=== PATIENT | female | born 1955 | race Caucasian/White ===

== ENCOUNTER 2016-10-03 00:11 | Emergency (ER) | payer MEDICARE, OTHER ==
[~2016-10-03] VITALS: Ht 157.5 cm; Wt 70.0 kg
[~2016-10-03 00:11] MED LIST: AMLO5TAB4 PO; ATOR10TA23 PO; BENA10TA PO; CITA20TA6 PO; EFV600C PO; GABA300C16 PO; HYDR25TA6 PO; METO-448 PO; NCN500CCR PO; SULF-151 PO; SYN1 PO; [UNRECOGNIZED DRUG - CODE] PO
[2016-10-03 00:20] VITALS: Ht 157.5 cm; Wt 70.0 kg
--- NOTE | 2016-10-03 01:52 | ERD ---
ER Documentation Chief Complaint Date/Time DATE: 10/03/16 TIME: 01:49 Chief Complaint COUGH SINCE YESTERDAY. HPI 61-year-old female presents here in emergency department cough for 2 days. Patient has been having dry cough, does not cough up any phlegm or blood. Patient has episodes of wheezing at time. Patient does not have any chest pain or palpitations. Patient denies any dizziness. Patient denies any sick contact. Patient denies any fever or chills. ROS All systems reviewed and are negative except as per history of present illness. Medications Home Meds Active Scripts Albuterol Sulfate* (Proair HFA*) 8.5 Gm Hfa.aer.ad, 2 PUFF INH Q4H Y for WHEEZING AND SOB, #1 INHALER Prov:BRIT GRIFFITHS NP 10/03/16 Prednisone* (Prednisone*) 50 Mg Tablet, 50 MG PO DAILY, #5 TAB Prov:BRIT GRIFFITHS NP 10/03/16 Ibuprofen* (Motrin*) 600 Mg Tab, 600 MG PO Q6H Y for PAIN AND OR ELEVATED TEMP, #30 TAB Prov:BRIT GRIFFITHS NP 10/03/16 Cetirizine Hcl* (Zyrtec*) 10 Mg Capsule, 10 MG PO DAILY, #30 TAB.CHEW Prov:BRIT GRIFFITHS NP 10/03/16 Gxyyctwzlnz-C-Kpyqadsevu Hb* (Guaifenesin* DM Syrup) 120 Ml Syrup, 10 ML PO Q4H Y for COUGH, #120 ML Prov:BRIT GRIFFITHS NP 10/03/16 Azithromycin* (Zithromax*) 250 Mg Tablet, 250 MG PO .TabathaPACK DIRECTED, #6 TAB TAKE 500 MG (2 TABS) THE FIRST DAY THEN 250 MG (1 TAB) DAYS 2-5 Prov:BRIT GRIFFITHS NP 10/03/16 Reported Medications Hydrochlorothiazide (Hydrochlorothiazide) 25 Mg Tablet, 25 MG PO DAILY 11/30/11 Lamivudine* (Epivir*) 300 Mg Tablet, 300 MG PO BID 11/30/11 Benazepril Hcl* (Lotensin*) 10 Mg Tablet, 10 MG PO DAILY 11/30/11 Sulfamethoxazole/Trimethoprim (Sulfamethoxazole Tmp Ds Tab) 1 Tab Tablet, 1 TAB PO DAILY 11/30/11 Metoprolol Tartrate* (Lopressor*) 25 Mg Tab, 25 MG PO DAILY 11/30/11 Niacin* (Niaspan*) 500 Mg Tablet.sa, 500 MG PO DAILY 11/30/11 Atorvastatin (Lipitor) 10 Mg Tablet, 10 MG PO DAILY 11/30/11 Levothyroxine Sodium* (Synthroid*) 100 Mcg Tablet, 100 MCG PO DAILY 11/30/11 Amlodipine Besylate* (Norvasc*) 5 Mg Tablet, 5 MG PO DAILY 11/30/11 Efavirenz* (Sustiva*) 600 Mg Tablet, 600 MG PO DAILY 11/30/11 Citalopram Hydrobromide* (Citalopram Hydrobromide*) 20 Mg Tablet, 20 MG PO DAILY 11/30/11 Gabapentin* (Gabapentin*) 300 Mg Capsule, 300 MG PO TID 11/30/11 Allergies Allergies: Coded Allergies: No Known Allergies (Verified Allergy, Mild, 11/30/11) acetaminophen (Verified Allergy, Unknown, VOMITS, 10/03/16) hydrocodone bit (Verified Allergy, Unknown, VOMITS, 10/03/16) PMhx/Soc History of Surgery: Yes (BACK,,BRAIN DUE ANEURYSM) Anesthesia Reaction: No Hx Neurological Disorder: Yes (CVA) Hx Respiratory Disorders: No Hx Cardiac Disorders: Yes (HTN\) Hx Psychiatric Problems: Yes (DEPRESSION) Hx Miscellaneous Medical Probl: Yes (AIDS DX 2 WEEKS AGO) Hx Alcohol Use: No Hx Substance Use: No Hx Tobacco Use: No Smoking Status: Never smoker FmHx Family History: No coronary disease, No diabetes, No other Physical Exam Vitals Vital Signs Date Time Temp Pulse Resp B/P Pulse Ox O2 Delivery O2 Flow Rate FiO2 10/03/16 02:54 96.7 82 17 128/75 96 Room Air 10/03/16 00:20 96.7 80 18 112/71 96 Physical Exam GENERAL: The patient is well developed and appropriate for usual state of health, in no apparent distress. CHEST: Clear to auscultation bilaterally. There are no rales, wheezes or rhonchi. HEART: Regular rate and rhythm. No murmurs, clicks, rubs or gallops. No S3 or S4. ABDOMEN: Soft, nontender and nondistended. Good bowel sounds. No rebound or guarding. No gross peritonitis. No gross organomegaly or masses. No Allison sign or McBurney point tenderness. BACK: No midline or flank tenderness. EXTREMITIES: Equal pulses bilaterally. There is no peripheral clubbing, cyanosis or edema. No focal swelling or erythema. Full range of motion. Grossly neurovascularly intact. NEURO: Alert and oriented. Cranial nerves 2-12 intact. Motor strength in all 4 extremities with 5/5 strength. Sensation grossly intact. Normal speech and gait. SKIN: There is no apparent rash or petechia. The skin is warm and dry. HEMATOLOGIC AND LYMPHATIC: There is no evidence of excessive bruising or lymphedema. No gross cervical, axillary, or inguinal lymphadenopathy. Results 24 hrs Current Medications Medications (Trade) Dose Ordered Sig/Ruby Route PRN Reason Start Time Stop Time Status Last Admin Dose Admin Ceftriaxone Sodium (Rocephin) 1 gm ONCE ONCE IM 10/03/16 03:00 10/03/16 03:01 DC 10/03/16 02:48 PROCEDURE: XR Chest. CLINICAL INDICATION: Cough. TECHNIQUE: Single frontal view of the chest was obtained COMPARISON: None FINDINGS: Right upper lobe pneumonia at the inferior segments. Mild patchy air space disease in the right middle lobe. The left lung is clear. There is no pleural effusion or pneumothorax. IMPRESSION: Dense right upper lobe pneumonia at the mid lung. RPTAT: [facility] Physician Av Date Time Electronically viewed and signed by Physician Av on 10/03/2016 02:30 RS/ CC: BRIT GRIFFITHS NP Procedures/MDM Medical Decision Making: Patient symptoms are most likely consistent with pneumonia as seen in the x-ray. Patient management is appropriate at this time since patient O2 saturation is normal and patient doesnt show any respiratory distress. Patients chest xray doesnt show infiltrates or any other cardiopulmonary emergencies at this time. There is low suspicion for other cardiopulmonary emergencies at this time such as CHF, Pulmonary Embolism, Pneumothorax, Aortic Aneurysm or any other cardiopulmonary emergencies at this time. There is low suspicion for sepsis. Patient appears well and is hemodynamically stable. She does not have any fever. Disposition: Home. Condition: Stable Prescriptions: Azithromycin, guaifenesin DM Zyrtec albuterol prednisone Instructions: Patient is advised to take medications as prescribed. Patient is advised to rest. Patient advised to increase fluid intake, do humidifier at home and if possible, do salt water gargles. Patient is advised that if symptoms are worse, shortness of breath, uncontrolled fever, stridor, vomiting, worst signs and symptoms to return to emergency department immediately. Otherwise, patient is advised to follow up with primary doctor in 5-7 days. Departure Diagnosis: Primary Impression: Pneumonia Pneumonia type: due to unspecified organism Laterality: right Lung location : upper lobe of lung Qualified Code: J18.1 - Pneumonia of right upper lobe due to infectious organism Condition: Stable Patient Instructions: Pneumonia (Adult) Additional Instructions: : Patient is advised to take medications as prescribed. Patient is advised to rest. Patient advised to increase fluid intake, do humidifier at home and if possible, do salt water gargles. Patient is advised that if symptoms are worse, shortness of breath, uncontrolled fever, stridor, vomiting, worst signs and symptoms to return to emergency department immediately. Otherwise, patient is advised to follow up with primary doctor in 5-7 days. BRIT GRIFFITHS NP Oct 03, 2016 01:52
--- NOTE | 2016-10-03 02:31 | RADRPT ---
PROCEDURE: XR Chest. CLINICAL INDICATION: Cough. TECHNIQUE: Single frontal view of the chest was obtained COMPARISON: None FINDINGS: Right upper lobe pneumonia at the inferior segments. Mild patchy air space disease in the right mid dle lobe. The left lung is clear. There is no pleural effusion or pneumothorax. IMPRESSION: Dense right upper lobe pneumonia at the mid lung. RPTAT: [facility] Physician Av Date Time Electronically viewed and signed by Physician Av on 10/03/2016 02:30 RS/
[2016-10-03] MEDS ORDERED: PRED50TA PO (02:40)
[2016-10-03] MEDS ORDERED: AZIT250T94 PO (02:40)
[2016-10-03] MEDS ORDERED: CETI10CA PO (02:40)
[2016-10-03] MEDS ORDERED: GUAI120S26 PO (02:40)
[2016-10-03] MEDS ORDERED: ALBU8.5H3 INH (02:40)
[2016-10-03] MEDS ORDERED: IBUP-1542 PO (02:40)
[2016-10-03 02:54] VITALS: BP 128/75; PULSE 82; RESP 17; TEMP 96.7
[2016-10-03] MEDS ORDERED: CEFTRIAXONE 1 GM INJ IM ONE (03:00)
== END 2016-10-03 03:00 | disposition home or self-care (01) ==
LOC: FTE 00:11
DX: J18.1 Lobar pneumonia, unspecified organism (principal); I10 Essential (primary) hypertension
CPT/HCPCS: 71010; 96372; 99284; J0696

== ENCOUNTER 2016-10-25 18:25 | Inpatient (IN) | payer MEDICARE, OTHER ==
[~2016-10-25] VITALS: Ht 152.4 cm; Wt 75.5 kg
[~2016-10-25 18:25] MED LIST changes: +ALBU8.5H3 INH; +AZIT250T94 PO; +CETI10CA PO; +GUAI120S26 PO; +IBUP-1542 PO; +PRED50TA PO
[2016-10-25] MEDS ORDERED: SODIUM CHLORIDE 0.9% 1L BAG IV* STA (19:20)
[2016-10-25] MEDS ORDERED: CEFEPIME 2GM/50 ML (PMX) 50 ML IVPB STA (19:20)
[2016-10-25] MEDS ORDERED: VANCOMYCIN 1 GM (PMX) 250 ML IVPB ONE (19:30)
[2016-10-25] MEDS ORDERED: IBUPROFEN 600 MG TAB PO ONE (19:30)
[2016-10-25 19:40] LABS: ADD SCAN DIFF NO
[2016-10-25 19:42] LABS: BASOPHILS % 0.2 % (0.0-2.0); EOSINOPHILS % 0.2 % (0.0-7.0); HEMATOCRIT 40.1 % (37.0-47.0); HEMOGLOBIN 14.2 g/dl (12.0-16.0); LYMPHOCYTES # 2.8 10^3/ul (0.8-2.9); LYMPHOCYTES % 20.6 % (15.0-51.0); MEAN CORPUSCULAR HEMOGLOBIN 33.2 pg (29.0-33.0); MEAN CORPUSCULAR HGB CONC 35.4 g/dl (32.0-37.0); MEAN CORPUSCULAR VOLUME 93.7 fl (82.0-101.0); MEAN PLATELET VOLUME 9.2 fl (7.4-10.4); MONOCYTE # 0.8 10^3/ul (0.3-0.9); NEUTROPHIL # 9.9 10^3/ul (1.6-7.5); NEUTROPHILS % 72.4 % (39.0-77.0); PLATELET COUNT 243 10^3/UL (140-415); RED BLOOD COUNT 4.28 10^6/ul (4.20-5.40); RED CELL DISTRIBUTION WIDTH 14.6 % (11.5-14.5); WHITE BLOOD COUNT 13.6 10^3/ul (4.8-10.8)
[2016-10-25 19:54] LABS: CHLORIDE 95 mmol/L (97-110)
[2016-10-25 19:55] LABS: INR 1.44; POTASSIUM 3.8 mmol/L (3.5-5.1); PROTIME 17.6 Sec (12.2-14.2); PT RATIO 1.4; SODIUM 132 mmol/L (135-144)
[2016-10-25 19:56] LABS: PARTIAL THROMBOPLASTIN TIME 34.7 Sec (25.0-35.0)
[2016-10-25 19:57] LABS: ANION GAP 19 (8-16); BILIRUBIN,INDIRECT 0.5 mg/dl (0-1.1); BILIRUBIN,TOTAL 0.5 mg/dl (0.2-1.3); CARBON DIOXIDE 22 mmol/L (21-31); CREATININE 1.83 mg/dl (0.44-1.00)
[2016-10-25 19:58] LABS: ALANINE AMINOTRANSFERASE 49 IU/L (13-69); ALBUMIN/GLOBULIN RATIO 0.81; ALKALINE PHOSPHATASE 150 IU/L (42-121); ASPARTATE AMINO TRANSFERASE 48 IU/L (15-46); BLOOD UREA NITROGEN 19 mg/dl (7-20); CALCIUM 8.7 mg/dl (8.4-10.2); GLUCOSE 116 mg/dl (70-220); TOTAL PROTEIN 8.9 g/dl (6.1-8.1)
[2016-10-25] MEDS ORDERED: OMEP40CA6 PO (20:06)
[2016-10-25] MEDS ORDERED: OXYB5TAB7 PO (20:06)
[2016-10-25] MEDS ORDERED: RALT400T4 PO (20:06)
[2016-10-25] MEDS ORDERED: EMTR1TAB11 PO (20:07)
[2016-10-25] MEDS ORDERED: FOLI-49 PO (20:07)
[2016-10-25] MEDS ORDERED: BIOT1TAB14 PO (20:10)
[2016-10-25] MEDS ORDERED: CHOL20003 PO (20:11)
--- NOTE | 2016-10-25 20:15 | ERA ---
ER Documentation Chief Complaint Date/Time DATE: 10/25/16 TIME: 20:08 Chief Complaint fever x 2 days HPI 61-year-old woman presents with continued fever and cough. About 3 weeks ago she was diagnosed with a pneumonia and discharged with oral antibiotics, she states she used her antibiotics without any relief she has had cough since then has had worsening fevers over the last 2 days. She feels weak and dizzy. She denies vomiting or diarrhea, no blood per rectum, no chest pain or shortness of breath. ROS All systems reviewed and are negative except as per history of present illness. Medications Home Meds Active Scripts Cetirizine Hcl* (Zyrtec*) 10 Mg Capsule, 10 MG PO DAILY, #30 TAB.CHEW Prov:BRIT GRIFFITHS PNEUMATIC TOOL REPAIRER 10/03/16 Reported Medications Voriconazole* (Voriconazole*) 200 Mg Tablet, 200 MG PO DAILY, TAB 10/25/16 Cholecalciferol (Vitamin D3) (VITAMIN D-3) 2,000 Unit Capsule, 2000 UNIT PO DAILY, CAP 10/25/16 Biotin/Silicon Diox/l-Cysteine (Jenkins Matrix 5000 ER Tablet) 1 Each Tablet.er, 1 EACH PO DAILY, TAB 10/25/16 Folic Acid* (Folic Acid*) 1 Mg Tablet, 1 MG PO DAILY, TAB 10/25/16 Emtricitabine-Tenofovir* (Truvada*) 200-300 Mg Tablet, 1 TAB PO DAILY, TAB 10/25/16 Omeprazole* (Omeprazole*) 40 Mg Capsule.dr, 40 MG PO DAILY, #30 CAP 10/25/16 Oxybutynin Chloride* (Ditropan*) 5 Mg Tab, 5 MG PO TID, TAB 10/25/16 Raltegravir Potassium* (Isentress*) 400 Mg Tablet, 400 MG PO BID, TAB 10/25/16 Hydrochlorothiazide (Hydrochlorothiazide) 25 Mg Tablet, 25 MG PO DAILY 11/30/11 Sulfamethoxazole/Trimethoprim (Sulfamethoxazole Tmp Ds Tab) 1 Tab Tablet, 1 TAB PO BID 11/30/11 Citalopram Hydrobromide* (Citalopram Hydrobromide*) 20 Mg Tablet, 20 MG PO DAILY 11/30/11 Gabapentin* (Gabapentin*) 300 Mg Capsule, 300 MG PO TID 11/30/11 Discontinued Reported Medications Lamivudine* (Epivir*) 300 Mg Tablet, 300 MG PO BID 11/30/11 Benazepril Hcl* (Lotensin*) 10 Mg Tablet, 10 MG PO DAILY 11/30/11 Metoprolol Tartrate* (Lopressor*) 25 Mg Tab, 25 MG PO DAILY 11/30/11 Niacin* (Niaspan*) 500 Mg Tablet.sa, 500 MG PO DAILY 11/30/11 Atorvastatin (Lipitor) 10 Mg Tablet, 10 MG PO DAILY 11/30/11 Levothyroxine Sodium* (Synthroid*) 100 Mcg Tablet, 100 MCG PO DAILY 11/30/11 Amlodipine Besylate* (Norvasc*) 5 Mg Tablet, 5 MG PO DAILY 11/30/11 Efavirenz* (Sustiva*) 600 Mg Tablet, 600 MG PO DAILY 11/30/11 Discontinued Scripts Albuterol Sulfate* (Proair HFA*) 8.5 Gm Hfa.aer.ad, 2 PUFF INH Q4H Y for WHEEZING AND SOB, #1 INHALER Prov:BRIT GRIFFITHS NP 10/03/16 Prednisone* (Prednisone*) 50 Mg Tablet, 50 MG PO DAILY, #5 TAB Prov:BRIT GRIFFITHS NP 10/03/16 Ibuprofen* (Motrin*) 600 Mg Tab, 600 MG PO Q6H Y for PAIN AND OR ELEVATED TEMP, #30 TAB Prov:BRIT GRIFFITHS NP 10/03/16 Gvrdotnknsw-D-Edbtacrqye Hb* (Guaifenesin* DM Syrup) 120 Ml Syrup, 10 ML PO Q4H Y for COUGH, #120 ML Prov:BRIT GRIFFITHS NP 10/03/16 Azithromycin* (Zithromax*) 250 Mg Tablet, 250 MG PO .TabathaPACHARLY DIRECTED, #6 TAB TAKE 500 MG (2 TABS) THE FIRST DAY THEN 250 MG (1 TAB) DAYS 2-5 Prov:BRIT GRIFFITHS NP 10/03/16 Allergies Allergies: Coded Allergies: acetaminophen (Verified Allergy, Unknown, VOMITS, 10/25/16) hydrocodone bit (Verified Allergy, Unknown, VOMITS, 10/25/16) PMhx/Soc Hypothyroidism, hypertension, history of stroke, recent right upper lobe pneumonia treated as an outpatient with oral antibiotics, gastritis History of Surgery: Yes (BACK,,BRAIN DUE ANEURYSM) Anesthesia Reaction: No Hx Neurological Disorder: Yes (CVA) Hx Respiratory Disorders: No Hx Cardiac Disorders: Yes (HTN\) Hx Psychiatric Problems: Yes (DEPRESSION) Hx Miscellaneous Medical Probl: Yes (AIDS ) Hx Alcohol Use: No Hx Substance Use: No Hx Tobacco Use: No Smoking Status: Never smoker FmHx Family History: No diabetes Physical Exam Vitals Vital Signs Date Time Temp Pulse Resp B/P Pulse Ox O2 Delivery O2 Flow Rate FiO2 10/25/16 21:15 100.5 90 16 85/54 99 Room Air 10/25/16 20:24 96 16 89/60 95 Room Air 10/25/16 18:58 100.5 118 20 80/55 94 Physical Exam GENERAL: Well-developed, well-nourished, febrile, dyspneic, hypotensive HEENT: Moist mucous membranes, pink conjunctiva, no cervical spine tenderness or step-off deformities, no goiter, no jaundice or icterus, extraocular movements intact without pain. No submandibular induration, and no pharyngeal erythema NEURO: Alert and oriented 3, cranial nerves II through XII intact bilaterally, pupils equal round reactive to light, no focal deficits or facial asymmetry, sensation intact distally Strength 5/5 in upper and lower extremities bilaterally CARDIAC: Tachycardic and regular, no murmurs rubs or gallops LUNGS: Poor breath sounds bilaterally, no obvious crackles or wheezing ABDOMEN: Soft nontender, no guarding, no rigidity, no rebound, no psoas sign no obturator sign. Normoactive bowel sounds SKIN: Hot to touch and dry, no abrasions, contusions, or hematomas, no lacerations, no ecchymosis, no target lesions, and without ulcers EXTREMITIES: No clubbing cyanosis or edema, calves are bilaterally symmetrical, no Homans sign, no popliteal cord sign. Distal pulses equal and bilateral PSYCH: Normal affect without agitation or irritability Result Diagram: 10/25/16193410/25/161934 Results 24 hrs Laboratory Tests Test 10/25/16 19:35 White Blood Count 13.610^3/ul Red Blood Count 4.2810^6/ul Hemoglobin 14.2g/dl Hematocrit 40.1% Mean Corpuscular Volume 93.7fl Mean Corpuscular Hemoglobin 33.2pg Mean Corpuscular Hemoglobin Concent 35.4g/dl Red Cell Distribution Width 14.6% Platelet Count 54992^3/UL Mean Platelet Volume 9.2fl Neutrophils % 72.4% Lymphocytes % 20.6% Monocytes % 6.0% Eosinophils % 0.2% Basophils % 0.2% Nucleated Red Blood Cells % 0.0/100WBC Neutrophils # 9.910^3/ul Lymphocytes # 2.810^3/ul Monocytes # 0.810^3/ul Eosinophils # 0.010^3/ul Basophils # 0.010^3/ul Nucleated Red Blood Cells # 0.010^3/ul Prothrombin Time 17.6Sec Prothrombin Time Ratio 1.4 INR International Normalized Ratio 1.44 Activated Partial Thromboplast Time 34.7Sec Sodium Level 132mmol/L Potassium Level 3.8mmol/L Chloride Level 95mmol/L Carbon Dioxide Level 22mmol/L Anion Gap 19 Blood Urea Nitrogen 19mg/dl Creatinine 1.83mg/dl Glucose Level 116mg/dl Lactic Acid Level 1.8mmol/L Calcium Level 8.7mg/dl Total Bilirubin 0.5mg/dl Direct Bilirubin 0.00mg/dl Indirect Bilirubin 0.5mg/dl Aspartate Amino Transf (AST/SGOT) 48IU/L Alanine Aminotransferase (ALT/SGPT) 49IU/L Alkaline Phosphatase 150IU/L Troponin I < 0.012ng/ml Total Protein 8.9g/dl Albumin 4.0g/dl Globulin 4.90g/dl Albumin/Globulin Ratio 0.81 Lipase 21U/L Current Medications Medications (Trade) Dose Ordered Sig/Ruby Route PRN Reason Start Time Stop Time Status Last Admin Dose Admin Sodium Chloride 3000 ml 3,000 ml BOLUS OVER 2 HOURS STAT IV* 10/25/16 19:20 10/25/16 19:22 DC 10/25/16 19:28 Cefepime HCl 50 ml @ 100 mls/hr ONCE STAT IVPB 10/25/16 19:20 10/25/16 19:49 DC 10/25/16 19:30 Vancomycin HCl (Vancocin) 250 ml @ 125 mls/hr ONCE ONCE IVPB 10/25/16 19:30 10/25/16 21:29 DC 10/25/16 20:08 Ibuprofen 600 mg 600 mg ONCE ONCE PO 10/25/16 19:30 10/25/16 19:31 DC 10/25/16 19:43 Sodium Chloride 1,000 ml @ 1,000 mls/hr Q1H ONCE IV 10/25/16 20:30 10/25/16 21:29 DC 10/25/16 20:26 Sodium Chloride 1,000 ml @ 1,000 mls/hr Q1H ONCE IV 10/25/16 20:30 10/25/16 21:29 DC 10/25/16 20:27 Norepinephrine (Levophed) 250 ml @ 1.875 mls/ hr TITRATE IV 10/25/16 22:00 Procedures/MDM IV line was established patient was placed on registered nurse cardiac rhythm strip revealed a sinus tachycardia at 120 bpm with upright P and T waves. Patient was febrile blood and urine cultures have been ordered results are pending I will follow-up. Patient was initially hypotensive. Patient was also initially hypoxic at 90%. She states she is compliant with all of her medications. EKG performed, read by me revealed a sinus tachycardia at 117 bpm, normal axis with a right ventricular conduction delay and a QRS duration 100 ms, no concerning ST elevations or depressions in the. One view chest x-ray performed, read by me there is a right upper lobe infiltrate, no pneumothorax, no end of the diaphragm. I treated the patient here with about 5 L normal saline intravenously for initial hypotension and sepsis, she also received cefepime 1 g IV and vancomycin 1 g IV. For fever patient received ibuprofen 600 mg p.o. Patient's infectious symptoms have not stabilized and the patient is at risk of rapid decompensation. The patient will be admitted for careful hydration, antibiotic therapy, and infectious source control. Severe Sepsis Assessment: Infectious Source: Pneumonia End organ damage indicated by: Hypotension( SBP < 90 or >40 mmHG drop or MAP < 65) Acute Resp Failure (sat < 92% w/o oxygen) Severe Sepsis Managment: Blood Cultures X 2 before broad spectrum antibiotics initiated within 3 hours of recognition. 30 ml/kg NS bolus Completed Initial Lactate: 1.8 Repeat Lactate not indicated as initial < 2.0 I ordered norepinephrine drip titrated to keep systolic blood pressure over 90 mmHg. Critical Care: Time: 50 minutes, this was time separate from other procedures Treatments/Evaluations: Emergent fluid management, while maintaining close respiratory support. Immediate broad spectrum antibiotic therapy. Simultaneous assessment for possible sources in order to direct therapy. Consideration for invasive and chemical support to prevent respiratory or cardiac collapse. Septic Shock Assessment (1 hour post 30 ml/kg fluid bolus): Hypotension (SBP < 90 or 40 mmHg drop, MAP < 65): Yes Lactic acid > 4.0 No Perfusion Reassessment for Septic Shock: Temp afebrile, pulse 100 bpm, respiratory rate 20 breaths per minute, blood pressure 100/80 mmHg. Heart Exam: Tachycardic Lung Exam: No Crackles Capillary Refill: Less than 2 seconds Peripheral Pulses: Radially present Skin: Hot and dry to touch Hypotensive Treatment (not required for isolated lactic acid elevation): Comfort Care: No Central LIne: Placed in the right femoral vein Vasopressor started: Indicated for continued hypotension despite adequate IV fluid resuscitation. Central Line Placement by me: Patient consented, sterilely draped, full prep, gown, glove, mask, time out performed. Anesthesia: 1% lidocaine locally Location: Right femoral vein Device: Multiple lumen Technique: Seldinger technique. Secured with suture. Results: Venous return from all ports with easy saline flush. No complications. The entire Guide wire retrieved and disposed of. I considered further perfusion assessment with CVP measurement, SCVO2, bedside ultrasound volume assessment, passive leg raise, trial of further fluid bolus. And preceded with IV hydration, central line placement, and IV antibiotics CBC revealed a leukocytosis at 14, electrolytes revealed dehydration with a BUN/ creatinine 19/1.8, liver function tests are normal, troponin was negative. Urine analysis is pending I will follow-up. Accepting Care Team: Current data and ongoing care discussed. Time: Time of admission Primary Provider: Hospital Consulting: Infectious disease Outstanding Data: none Departure Diagnosis: Primary Impression: Pneumonia Qualified Code: J18.1 - Pneumonia of right upper lobe due to infectious organism Additional Impression: Septic shock Condition: Serious MARIA ELENA LAWLER MD Oct 25, 2016 20:15
[2016-10-25] MEDS ORDERED: VORI200T9 PO (20:19)
[2016-10-25 20:20] LABS: TROPONIN-I < 0.012 ng/ml (0.00-0.12)
[2016-10-25] MEDS ORDERED: SOD CHLORIDE 0.9% 1,000 ML IV ONE ×2 (20:30)
--- NOTE | 2016-10-25 20:37 | RADRPT ---
PROCEDURE: XR Chest. CLINICAL INDICATION: Sepsis. TECHNIQUE: Single frontal view of the chest. COMPARISON: Plain film chest dated 10/03/2016. FINDINGS: Cardiomegaly. Right mid lung air space disease again seen, compatible with right upper lobe pneumoni a. This is without significant address change clerk interval, given differences in technique. No signs of pleural fluid or pneumothorax are seen. The osseous structures and soft tissues are unre markable. IMPRESSION: Persist and right upper lobe pneumonia, and consider CT correlation given presence for greater than 20 days. RPTAT: [facility] Physician Av Date Time Electronically viewed and signed by Physician Av on 10/25/2016 20:36 RS/
[2016-10-25] MEDS ORDERED: NORepinephrine 8MG/250 ML (PMX 250 ML IV SCH ×3 (22:00→23:30)
[2016-10-25 22:48] LABS: ADD UMIC NO; URINE BILIRUBIN (Dip) NEGATIVE (NEGATIVE); URINE BLOOD (Dip) NEGATIVE (NEGATIVE); URINE COLOR LT. YELLOW (YELLOW); URINE GLUCOSE (Dip) NEGATIVE (NEGATIVE); URINE KETONES (Dip) NEGATIVE (NEGATIVE); URINE LEUKOCYTE ESTERASE (Dip) NEGATIVE (NEGATIVE); URINE NITRITE (Dip) NEGATIVE (NEGATIVE); URINE TOTAL PROTEIN (Dip) NEGATIVE (NEGATIVE); URINE UROBILINOGEN (Dip) 0.2 E.U./dL (0.1-1.0)
[2016-10-25] MEDS ORDERED: LORAZEPAM 2 MG INJ IV PRN (23:30)
[2016-10-25] MEDS ORDERED: MAGNESIUM HYDROXIDE 30ML CUP PO PRN (23:30)
[2016-10-25] MEDS ORDERED: ONDANSETRON 4 MG INJ IV PRN (23:30)
[2016-10-25] MEDS ORDERED: ALBUTEROL/IPRATROPIUM (NEB) 3 ML AMP NEB PRN (23:30)
[2016-10-25] MEDS: DEXTROSE 5%-0.9% NACL 1,000 ML IV SCH (23:40)
[2016-10-25] MEDS: AZITHROMYCIN 500MG/NS (PMX) 250 ML IV SCH (23:50)
--- NOTE | 2016-10-26 05:44 | HP ---
Date/Time of Note Date/Time of Note DATE: 10/26/16 TIME: 05:34 Assessment/Plan VTE Prophylaxis VTE Prophylaxis Intervention: SCD's Assessment/Plan Assessment/Plan 1. Sepsis Shock 2/2 RUL pneumonia - Cont pressor support, IVF and abx - f/u culture results - Will order CT chest for better evaluation of Pneumonia - ID consult 2. Hx of HIV - check viral load and CD4 - ID to manage meds 3.Hx of Subarachnoid hemorrhage and hydrocephalus - non-acute issue 4. Hypothyroidism - chech TSH - cont med 5. hx of Hypertension - hold meds given septic shock. Resume as needed 6. History of stroke - Cont aspirin 7. Hx of Gastritis - PPI HPI/ROS Admit Date/Time Admit Date/Time Hx of Present Illness Patient is a 61 yo female with hx of HIV, Subarachnoid hemorrhage, hydrocephalus , Hypothyroidism, hypertension, history of stroke, gastritis who presented to ER c/o cough, fever and SOB. She was seen here in ER about 3 weeks ago and was dx'd with right upper lobe pneumonia, which was treated as an outpatient with oral antibiotics. She said she completed her abx, but symptoms persisted. She said she was dx'd with HIV 4 years ago and has been compliant with her meds. In ER, CXR showed RUL dense pneumonia. She had a temp of 100.5, tachycardic, WBC 13,000 and hypotensive despite several litres of IVF. Currently she is on pressor and awaiting ICU admission. . PMH/Family/Social Past Medical History Subarachnoid hemorrhage, hydrocephalus, Hypothyroidism, hypertension, history of stroke, gastritis, HIV . Social History Alcohol Use: none Smoking Status: Never smoker Drug Use: none Exam/Review of Systems Vital Signs Vitals Vital Signs Date Time Temp Pulse Resp B/P Pulse Ox O2 Delivery O2 Flow Rate FiO2 10/26/16 05:00 93 16 110/93 100 Nasal Cannula 2.0 10/26/16 02:09 98.6 Intake and Output 10/25/16 10/25/16 10/26/16 15:00 23:00 07:00 Intake Total 5300 ml Output Total 800 ml Balance 5300 ml -800 ml Exam Constitutional: other (appears slightly anxious and lethargic) Head: atraumatic, normocephalic Eyes: EOMI, PERRL Respiratory: diminished breath sounds Cardiovascular: nl pulses, regular rate and rhythm Gastrointestinal: non-tender, soft Extremities: normal pulses Labs Result Diagram: 10/25/16193410/25/161934 Medications Medications Current Medications Norepinephrine (Levophed) 250 ml @ 1.875 mls/ hr TITRATE IV Last administered on 10/25/16 22:05; Admin Dose 9.375 MLS/HR; Start 10/25/16 at 22:00 Ondansetron HCl (Zofran Inj) 4 mg Q6H PRN IV NAUSEA AND/OR VOMITING; Start at 23:30 Lorazepam (Ativan) 1 mg Q2H PRN IV ANXIETY; Start 10/25/16 at 23:30 Magnesium Hydroxide (Milk Of Mag) 30 ml DAILY PRN PO CONSTIPATION; Start at 23:30 Famotidine (Pepcid) 20 mg DAILY PO ; Start 10/26/16 at 09:00 Enoxaparin Sodium 40 mg 40 mg DAILY SC ; Start 10/26/16 at 09:00 Ceftriaxone Sodium 50 ml @ 100 mls/hr Q24H IVPB ; Start 10/26/16 at 06:00 Azithromycin 250 ml @ 250 mls/hr Q24H IV Last administered on 10/25/16 23:50 ; Admin Dose 250 MLS/HR; Start 10/25/16 at 23:30 Dextrose/Sodium Chloride (D5-NS) 1,000 ml @ 120 mls/hr Q8H20M IV Last administered on 10/25/16 23:40; Admin Dose 120 MLS/HR; Start 10/25/16 at 23:30 GREG RAMOS MD Oct 26, 2016 05:44
[2016-10-26] MEDS ORDERED: CEFTRIAXONE 1 GM/50 ML (PMX) 50 ML IVPB SCH (06:00)
[2016-10-26 06:35] LABS: ADD SCAN DIFF NO
[2016-10-26 06:40] LABS: ABNORMAL IP MESSAGE 1; BASOPHILS % 0.1 % (0.0-2.0); EOSINOPHILS % 0.1 % (0.0-7.0); HEMATOCRIT 36.1 % (37.0-47.0); HEMOGLOBIN 12.3 g/dl (12.0-16.0); LYMPHOCYTES # 0.9 10^3/ul (0.8-2.9); LYMPHOCYTES % 5.8 % (15.0-51.0); MEAN CORPUSCULAR HEMOGLOBIN 32.6 pg (29.0-33.0); MEAN CORPUSCULAR HGB CONC 34.1 g/dl (32.0-37.0); MEAN CORPUSCULAR VOLUME 95.8 fl (82.0-101.0); MEAN PLATELET VOLUME 9.6 fl (7.4-10.4); MONOCYTE # 0.8 10^3/ul (0.3-0.9); MONOCYTES % 4.8 % (0.0-11.0); NEUTROPHIL # 13.8 10^3/ul (1.6-7.5); NEUTROPHILS % 87.6 % (39.0-77.0); PLATELET COUNT 223 10^3/UL (140-415); RED BLOOD COUNT 3.77 10^6/ul (4.20-5.40); RED CELL DISTRIBUTION WIDTH 14.9 % (11.5-14.5); WHITE BLOOD COUNT 15.8 10^3/ul (4.8-10.8)
[2016-10-26 06:54] LABS: ALBUMIN 2.6 g/dl (3.3-4.9)
[2016-10-26 06:57] LABS: ALBUMIN/GLOBULIN RATIO 0.68; BILIRUBIN,INDIRECT 0.2 mg/dl (0-1.1); BILIRUBIN,TOTAL 0.2 mg/dl (0.2-1.3); CREATININE 1.17 mg/dl (0.44-1.00); TOTAL PROTEIN 6.4 g/dl (6.1-8.1)
[2016-10-26 06:58] LABS: CALCIUM 6.6 mg/dl (8.4-10.2)
[2016-10-26] MEDS: DEXTROSE 5%-0.9% NACL 1,000 ML IV SCH ×2 (07:20→18:45)
[2016-10-26] MEDS: FAMOTIDINE 20 MG TAB PO SCH (09:35)
[2016-10-26] MEDS: ENOXAPARIN 40 MG/0.4 ML SYG SC SCH (09:35)
--- NOTE | 2016-10-26 10:19 | RADRPT ---
PROCEDURE: CT Chest without contrast. CLINICAL INDICATION: Abnormal chest x-ray. TECHNIQUE: Volumetrically acquired images of the thorax without intravenous contrast were reformat tanya in the axial, sagittal, and coronal planes. Radiation dose: CTDIvol (mGy) = 13.0; total DLP mGy-cm = 477. One or more of the following radiation dose techniques were used: -Automated exposure control. -Adjust of the mA and/or kV according to patient size. -Use of iterative reconstruction technique. COMPARISON: Chest x-rays, 10/25/2016 and 10/03/2016. FINDINGS: Large area of consolidation identified in the anterior upper lobe with traction bronchiectasis. The re are diffuse bilateral centrilobular nodules that are most prominent in the right upper and lower lobe superior. There are prominent linear bands of scarring and/or atelectasis identified in the r ight upper and bilateral lower lobes. Retained secretions and/or aspirate is noted in the dependent aspect of the trachea. There is a sma ll right paratracheal cyst. Normal heart size with small pericardial effusion. There are left hilar michelle calcifications. Diffuse hepatic steatosis. Asymmetric enlargement of the left lateral lobe of the liver with fissur al widening and recanalization of the periumbilical vein; dysmorphic changes suggesting underyling d iffuse liver disease. There is also trace perihepatic ascites. IMPRESSION: Diffuse exudative inflammatory airway changes, consistent with an infectious/inflammatory bronchioli tis in the background of diffuse bilateral bands of pleural parenchymal scarring and chronic consoli dation involving the anterior upper lobe. Findings may reflect sequelae of prior and/or persistent indolent granulomatous airway infection. Consider consultation with pulmonary medicine. Hepatic steatosis with morphologic changes in the liver suggesting early cirrhotic change. There is small perihepatic ascites. RPTAT: EE .Mando Brower MD, Date Time Electronically viewed and signed by .Mando Brower MD, on 10/26/2016 10:24 .C/
[2016-10-26] MEDS ORDERED: ADENOSINE 4 ML ONE (11:59)
[2016-10-26] MEDS ORDERED: ADENOSINE 6 MG INJ IV ONE (12:00)
--- NOTE | 2016-10-26 12:15 | EN ---
Date/Time of Note Date/Time of Note DATE: 10/26/16 TIME: 12:12 ER Progress Note This 61-year-old admitted patient suddenly went into a tachycardia. She is feeling palpitations but no chest pain. The nurse approached me to evaluate the patient due to the tachycardia. Heart rate on monitor shows 165. Const: Well-developed, well-nourished Head: Atraumatic, normocephalic Eyes: Normal Conjunctiva, PERRLA, EOMI, normal sclera, no nystagmus ENT: Normal External Ears, Nose and Mouth, moist mucus membranes. Neck: Full range of motion. No meningismus, no lymphadenopathy. Resp: Clear to auscultation bilaterally, no wheezing, rhonchi, rales Cardio: Tachycardia, no murmurs, S1 S2 present Skin: No petechiae or rashes, no ecchymosis , no maculopapular rash Ext: No cyanosis, or edema, FROM x 4, normal inspection, neurovascularly intact x 4 Neur: Awake and alert, STR 5/5 x 4, sensation intact x 4, no focal findings, cerebellum intact Psych: Normal Mood and Affect EKG: Rate/Rhythm: Supraventricular tachycardia heart rate 160, right axis deviation with an incomplete right bundle branch block QRS, ST, QT: NORMAL MI, QRS, QT] Impression: SVT Stopped Levophed drips due to tachycardia. Still tachycardic. Blood pressure 91/78 Patient was given adenosine 12 mg IV push This did convert the patient. Heart rate is now 110 Diagnosis: Supraventricular tachycardia Condition: Stable Disposition: Admit to ICU SRI GIMENEZ DO Oct 26, 2016 12:15
[2016-10-26] MEDS ORDERED: GLUCOSE GEL 15 GRAM TUBE PO PRN ×2 (16:00)
[2016-10-26] MEDS ORDERED: GLUCAGON 1 MG INJ IM PRN (16:00)
[2016-10-26] MEDS ORDERED: DEXTROSE 50% 50 ML SYRINGE IV PRN ×2 (16:00)
[2016-10-26] MEDS ORDERED: GLUCOSE GEL 15 GRAM TUBE BUCCAL PRN (16:00)
--- NOTE | 2016-10-26 16:24 | CONS ---
DATE OF ADMISSION: 10/25/2016 DATE OF CONSULTATION: 10/26/2016 INFECTIOUS DISEASE CONSULTATION REASON FOR CONSULTATION: Antibiotic management. HISTORY OF PRESENT ILLNESS: Lien Amin is a 61-year-old female with numerous problems who com es in with sepsis and shock secondary to right upper lobe pneumonia. Her past problems include: 1. History of human immunodeficiency virus. 2. Subarachnoid hemorrhage. 3. Hydrocephalus. 4. Hypothyroidism. 5. Hypertension. 6. History of stroke. 7. Gastritis. The patient presents to the ER complaining of cough, fever, and shortness of breath. She was here 3 weeks ago, diagnosed with right upper lobe pneumonia which was treated as an outpatient with oral a ntibiotics. Symptoms persisted. She was diagnosed with HIV 4 years ago and has been compliant with the medications. In the ER, chest x-ray showed right upper lobe dense pneumonia. Temperature was 100.5, white count of 13,000, and she was hypotensive despite fluids. She is on pressors, awaiting ICU admission. PAST MEDICAL HISTORY: Operations as outlined. FAMILY HISTORY: Noncontributory. SOCIAL HISTORY: She does not smoke, drink, or abuse drugs. ALLERGIES: NONE TO PENICILLIN, SULFA, OR FOODS. MEDICATIONS: Per chart. REVIEW OF SYSTEMS: Noncontributory. PHYSICAL EXAMINATION: GENERAL: The patient is a slightly anxious, lethargic female who is awake, responsive, in no acute distress. VITAL SIGNS: Stable. She is afebrile. SKIN: Without generalized rash. HEENT: Within normal limits. NECK: Supple. LYMPH NODES: None palpable. CHEST: Decreased breath sounds at the bases. HEART: Without murmur or gallop. ABDOMEN: Soft, nontender, without organosplenomegaly or masses. EXTREMITIES: Without cyanosis, clubbing, or edema. RECTAL AND GENITAL: Deferred. NEUROLOGIC: No focal neurological abnormalities. ANCILLARY LABORATORY DATA: White count 13.6 on 10/25/2016, H and H of 14.2 and 40.1, platelet count 243,000. BUN and creatinine 19/1.83. COURSE: The patient was begun on azithromycin and ceftriaxone, although she has been treated previo usly. The patient was tachycardic, developed a supraventricular tachycardia. She was given adenosi ne 12 mg IV push, and that converted the patient to a heart rate of 110. Her white count today is 1 5.8. Her medications include ceftriaxone and azithromycin. We have to check on her HAART medicatio ns as well to see what she is on. I am going to change her ceftriaxone to cefepime and check on her anti-HIV medications. Dictated By: KALEB LEE MD, JD/KATIE Conf#: [id number] DID#: [id number]
[2016-10-26] MEDS: POTASSIUM CHLORIDE 250 ML IVPB SCH ×2 (17:24→21:40)
[2016-10-26] MEDS: INSULIN ASPART [NOVOLOG] 3 ML PEN SC SCH ×2 (20:06→21:00)
[2016-10-26] MEDS: CEFEPIME 1GM/50 ML (PMX) 50 ML IVPB SCH (21:45)
[2016-10-26] MEDS: AZITHROMYCIN 500MG/NS (PMX) 250 ML IV SCH (22:57)
[2016-10-27] MEDS ORDERED: METHYLPREDNISOLONE 125 MG INJ IV ONE (00:30)
[2016-10-27] MEDS: DEXTROSE 5%-0.9% NACL 1,000 ML IV SCH ×3 (01:04→20:00)
[2016-10-27] MEDS: ACCUCHECK AT 2AM (Patients on SS coverage) XX SCH (02:14)
[2016-10-27 05:54] LABS: ADD SCAN DIFF NO
[2016-10-27 05:56] LABS: ABNORMAL IP MESSAGE 1; BASOPHILS % 0.3 % (0.0-2.0); LYMPHOCYTES # 0.8 10^3/ul (0.8-2.9); LYMPHOCYTES % 8.7 % (15.0-51.0); MEAN CORPUSCULAR HEMOGLOBIN 32.6 pg (29.0-33.0); MEAN CORPUSCULAR HGB CONC 35.3 g/dl (32.0-37.0); MEAN CORPUSCULAR VOLUME 92.4 fl (82.0-101.0); MEAN PLATELET VOLUME 9.1 fl (7.4-10.4); MONOCYTE # 0.3 10^3/ul (0.3-0.9); MONOCYTES % 3.5 % (0.0-11.0); NEUTROPHIL # 7.9 10^3/ul (1.6-7.5); NEUTROPHILS % 85.9 % (39.0-77.0); PLATELET COUNT 232 10^3/UL (140-415); RED BLOOD COUNT 3.68 10^6/ul (4.20-5.40); RED CELL DISTRIBUTION WIDTH 14.9 % (11.5-14.5); WHITE BLOOD COUNT 9.2 10^3/ul (4.8-10.8)
[2016-10-27 06:36] LABS: CALCIUM 7.2 mg/dl (8.4-10.2); CREATININE 0.73 mg/dl (0.44-1.00); MAGNESIUM 2.1 mg/dl (1.7-2.5); PHOSPHORUS 1.4 mg/dl (2.5-4.9); POTASSIUM 3.9 mmol/L (3.5-5.1)
[2016-10-27] MEDS: INSULIN ASPART [NOVOLOG] 3 ML PEN SC SCH ×4 (08:06→23:00)
[2016-10-27] MEDS: CEFEPIME 1GM/50 ML (PMX) 50 ML IVPB SCH ×2 (08:41→23:10)
[2016-10-27] MEDS: FAMOTIDINE 20 MG TAB PO SCH (08:41)
[2016-10-27] MEDS: ENOXAPARIN 40 MG/0.4 ML SYG SC SCH (08:42)
[2016-10-27 10:00] VITALS: TEMP 98.8
--- NOTE | 2016-10-27 17:53 | PN ---
Date/Time of Note Date/Time of Note DATE: 10/27/16 TIME: 17:46 Assessment/Plan VTE Prophylaxis VTE Prophylaxis Intervention: LMWH Assessment/Plan Chief Complaint/Hosp Course 1. Sepsis Shock 2/2 RUL pneumonia and/or C. difficile - Cont to wean off pressor support, IVF and abx - f/u culture results -CT chest shows possible indolent granulomatous airway infection, pulmonary consultation - ID consult appreciated, continue cefepime, azithromycin and Flagyl 2. Hx of HIV -ID consult appreciated -Resume home meds 3.Hx of Subarachnoid hemorrhage and hydrocephalus - non-acute issue 4. History of stroke - Cont aspirin 5. hx of Hypertension - hold meds given septic shock. Resume as needed Prophylaxis: Lovenox Problems: Subjective 24 Hr Interval Summary Constitutional: no complaints Exam/Review of Systems Vital Signs Vitals Vital Signs Date Time Temp Pulse Resp B/P Pulse Ox O2 Delivery O2 Flow Rate FiO2 10/27/16 17:18 76 17 114/79 98 Nasal Cannula 2.0 10/27/16 10:00 98.8 Intake and Output 10/26/16 10/26/16 10/27/16 15:00 23:00 07:00 Intake Total 1000 ml 826.0 ml Output Total 1500 ml 1700 ml Balance -1500 ml 1000 ml -874.0 ml Exam Constitutional: alert Respiratory: clear to auscultation Cardiovascular: regular rate and rhythm Gastrointestinal: soft, No distended Musculoskeletal: nl extremities to inspection Results Result Diagram: 10/27/16 0514 10/27/16 0514 Results 24 hrs Laboratory Tests Test 10/26/16 19:42 10/26/16 21:46 10/27/16 02:03 10/27/16 05:14 Bedside Glucose 306 H 145 135 White Blood Count 9.2 # Red Blood Count 3.68 L Hemoglobin 12.0 Hematocrit 34.0 L Mean Corpuscular Volume 92.4 Mean Corpuscular Hemoglobin 32.6 Mean Corpuscular Hemoglobin Concent 35.3 Red Cell Distribution Width 14.9 H Platelet Count 232 Mean Platelet Volume 9.1 Neutrophils % 85.9 H Lymphocytes % 8.7 L Monocytes % 3.5 Eosinophils % 0.0 Basophils % 0.3 Nucleated Red Blood Cells % 0.0 Neutrophils # 7.9 H Lymphocytes # 0.8 Monocytes # 0.3 Eosinophils # 0.0 Basophils # 0.0 Nucleated Red Blood Cells # 0.0 Sodium Level 133 L Potassium Level 3.9 Chloride Level 113 H Carbon Dioxide Level 16 L Anion Gap 8 Blood Urea Nitrogen 7 Creatinine 0.73 Glucose Level 188 Calcium Level 7.2 L Phosphorus Level 1.4 L Magnesium Level 2.1 Test 10/27/16 07:41 10/27/16 12:47 Bedside Glucose 172 168 Medications Medications Current Medications Norepinephrine (Levophed) 250 ml @ 1.875 mls/ hr TITRATE IV Last administered on 10/25/16 22:05; Admin Dose 9.375 MLS/HR; Start 10/25/16 at 22:00 Ondansetron HCl (Zofran Inj) 4 mg Q6H PRN IV NAUSEA AND/OR VOMITING; Start at 23:30 Lorazepam (Ativan) 1 mg Q2H PRN IV ANXIETY; Start 10/25/16 at 23:30 Magnesium Hydroxide (Milk Of Mag) 30 ml DAILY PRN PO CONSTIPATION; Start at 23:30 Famotidine (Pepcid) 20 mg DAILY PO Last administered on 10/27/16 08:41; Admin Dose 20 MG; Start 10/26/16 at 09:00 Enoxaparin Sodium 40 mg 40 mg DAILY SC Last administered on 10/27/16 08:42; Admin Dose 40 MG; Start 10/26/16 at 09:00 Azithromycin 250 ml @ 250 mls/hr Q24H IV Last administered on 10/26/16 22:57 ; Admin Dose 250 MLS/HR; Start 10/25/16 at 23:30 Dextrose/Sodium Chloride (D5-NS) 1,000 ml @ 120 mls/hr Q8H20M IV Last administered on 10/27/16 10:11; Admin Dose 120 MLS/HR; Start 10/25/16 at 23:30 Diagnostic Test (Pha) (Accu-Chek) 1 ea 02 XX Last administered on 10/27/16 02: 14; Admin Dose 1 EA; Start 10/27/16 at 02:00 Miscellaneous Information 1 ea NOTE XX ; Start 10/26/16 at 16:00 Glucose (Glutose) 15 gm Q15M PRN PO DECREASED GLUCOSE; Start 10/26/16 at 16:00 Glucose (Glutose) 22.5 gm Q15M PRN PO DECREASED GLUCOSE; Start 10/26/16 at 16: 00 Dextrose (D50w Syringe) 25 ml Q15M PRN IV DECREASED GLUCOSE; Start 10/26/16 at 16:00 Dextrose (D50w Syringe) 50 ml Q15M PRN IV DECREASED GLUCOSE; Start 10/26/16 at 16:00 Glucagon (Glucagen) 1 mg Q15M PRN IM DECREASED GLUCOSE; Start 10/26/16 at 16:00 Glucose 15 gm 15 gm Q15M PRN BUCCAL DECREASED GLUCOSE; Start 10/26/16 at 16:00 Cefepime HCl (Maxipime 1gm/50 ml (Pmx)) 50 ml @ 100 mls/hr Q12 IVPB Last administered on 10/27/16 08:41; Admin Dose 100 MLS/HR; Start 10/26/16 at 21:00 ANICETO LEES Oct 27, 2016 17:53
[2016-10-27] MEDS ORDERED: POTASSIUM PHOSPHATE 40 MEQ in SOD CHLORIDE 0.9% 250 ML IVPB ONE (18:00)
[2016-10-27] MEDS: EMTRICITABINE/TENOFOVIR TAB PO SCH (20:00)
--- NOTE | 2016-10-27 20:22 | CONS ---
Date/Time of Note Date/Time of Note DATE: 10/27/16 TIME: 19:54 Assessment/Plan Assessment/Plan Chief Complaint/Hosp Course ID PROGRESS NOTE ABX DAY #3 =>Cefepime, Flagyl, Azith 24H INTERVAL SUMMARY * HIV(+)/AIDS: on ARV meds: * Emtricitabine-Tenofovir* (Truvada*) 200-300 Mg Tablet, 1 TAB PO DAILY, TAB * Raltegravir Potassium* (Isentress*) 400 Mg Tablet, 400 MG PO BID, TAB * HOME ABX HIV/AIDS: Voriconazole* (Voriconazole*) 200 Mg Tablet, 200 MG PO DAILY, TAB + Sulfamethoxazole/Trimethoprim (Sulfamethoxazole Tmp Ds Tab) 1 Tab Tablet, 1 TAB PO BID * Fevers resolved, WBC normalized * CXR 10/25/16 Persist and right upper lobe pneumonia, and consider CT correlation given presence for greater than 20 days. * 10/26/16 CT CHEST: IMPRESSION: * Diffuse exudative inflammatory airway changes, consistent with an infectious/ inflammatory bronchiolitis in the background of diffuse bilateral bands of pleural parenchymal scarring and chronic consolidation involving the anterior upper lobe. Findings may reflect sequelae of prior and/or persistent indolent granulomatous airway infection. Consider consultation with pulmonary medicine. * Hepatic steatosis with morphologic changes in the liver suggesting early cirrhotic change. There is small perihepatic ascites. PHYSICAL EXAMINATION: GENERAL: 61 yo F seen in the ED today as f/u to Dr. Sumner's ID note from yesterday HEENT: Unremarkable NECK: Supple, trachea midline. CHEST: Rise symmetrical, (+)scattered rhonchi HEART: Pulse RRR ABDOMEN: Soft, non-tender EXTREMITIES: Warm, dry, no edema ID ASSESSMENT 61 yo F w/PMHx HTN, CVA->Ruptured cerebral aneurysm with: 1. Sepsis on presentation to ED 10/25 w/fevers, transient hypotension, leukocytosis and tachycardia due to #2 2. Persistent PNA 3. HIV(+)/AIDS Dx ~prior to 2011, reportedly compliant with ARV meds: * Emtricitabine-Tenofovir* (Truvada*) 200-300 Mg Tablet, 1 TAB PO DAILY, TAB * Raltegravir Potassium* (Isentress*) 400 Mg Tablet, 400 MG PO BID, TAB * HOME ABX HIV/AIDS: * Voriconazole* (Voriconazole*) 200 Mg Tablet, 200 MG PO DAILY, TAB * Sulfamethoxazole/Trimethoprim (Sulfamethoxazole Tmp Ds Tab) 1 Tab Tablet, 1 TAB PO BID 4. MARA while on Tenofovir -> Improved 5. HTN 6. Cirrhosis w/Fatty Liver, mild ascites 7. Gastritis, hx of PUD 8. Thyroid disorder 9. 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 Depression 11. Vit D deficiency 12. 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 Overall she is improving on current ABX 2. 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 . Problems: Consultation Date/Type/Reason Admit Date/Time Initial Consult Date Exam/Review of Systems Vital Signs Vitals Vital Signs Date Time Temp Pulse Resp B/P Pulse Ox O2 Delivery O2 Flow Rate FiO2 10/27/16 18:24 75 17 108/81 100 Nasal Cannula 10/27/16 17:55 2.0 10/27/16 10:00 98.8 Intake and Output 10/26/16 10/26/16 10/27/16 14:59 22:59 06:59 Intake Total 1000 ml 826.0 ml Output Total 1500 ml 1700 ml Balance -1500 ml 1000 ml -874.0 ml Results Result Diagram: 10/27/16 0514 10/27/16 0514 Results 24 hrs Laboratory Tests Test 10/26/16 21:46 10/27/16 02:03 10/27/16 05:14 10/27/16 07:41 Bedside Glucose 145 135 172 White Blood Count 9.2 # Red Blood Count 3.68 L Hemoglobin 12.0 Hematocrit 34.0 L Mean Corpuscular Volume 92.4 Mean Corpuscular Hemoglobin 32.6 Mean Corpuscular Hemoglobin Concent 35.3 Red Cell Distribution Width 14.9 H Platelet Count 232 Mean Platelet Volume 9.1 Neutrophils % 85.9 H Lymphocytes % 8.7 L Monocytes % 3.5 Eosinophils % 0.0 Basophils % 0.3 Nucleated Red Blood Cells % 0.0 Neutrophils # 7.9 H Lymphocytes # 0.8 Monocytes # 0.3 Eosinophils # 0.0 Basophils # 0.0 Nucleated Red Blood Cells # 0.0 Sodium Level 133 L Potassium Level 3.9 Chloride Level 113 H Carbon Dioxide Level 16 L Anion Gap 8 Blood Urea Nitrogen 7 Creatinine 0.73 Glucose Level 188 Calcium Level 7.2 L Phosphorus Level 1.4 L Magnesium Level 2.1 Test 10/27/16 12:47 10/27/16 18:47 Bedside Glucose 168 106 Medications Medications Current Medications Norepinephrine (Levophed) 250 ml @ 1.875 mls/ hr TITRATE IV Last administered on 10/25/16 22:05; Admin Dose 9.375 MLS/HR; Start 10/25/16 at 22:00 Ondansetron HCl (Zofran Inj) 4 mg Q6H PRN IV NAUSEA AND/OR VOMITING; Start at 23:30 Lorazepam (Ativan) 1 mg Q2H PRN IV ANXIETY; Start 10/25/16 at 23:30 Magnesium Hydroxide (Milk Of Mag) 30 ml DAILY PRN PO CONSTIPATION; Start at 23:30 Famotidine (Pepcid) 20 mg DAILY PO Last administered on 10/27/16 08:41; Admin Dose 20 MG; Start 10/26/16 at 09:00 Enoxaparin Sodium 40 mg 40 mg DAILY SC Last administered on 10/27/16 08:42; Admin Dose 40 MG; Start 10/26/16 at 09:00 Azithromycin 250 ml @ 250 mls/hr Q24H IV Last administered on 10/26/16 22:57 ; Admin Dose 250 MLS/HR; Start 10/25/16 at 23:30 Dextrose/Sodium Chloride (D5-NS) 1,000 ml @ 120 mls/hr Q8H20M IV Last administered on 10/27/16 10:11; Admin Dose 120 MLS/HR; Start 10/25/16 at 23:30 Diagnostic Test (Pha) (Accu-Chek) 1 ea 02 XX Last administered on 10/27/16 02: 14; Admin Dose 1 EA; Start 10/27/16 at 02:00 Miscellaneous Information 1 ea NOTE XX ; Start 10/26/16 at 16:00 Glucose (Glutose) 15 gm Q15M PRN PO DECREASED GLUCOSE; Start 10/26/16 at 16:00 Glucose (Glutose) 22.5 gm Q15M PRN PO DECREASED GLUCOSE; Start 10/26/16 at 16: 00 Dextrose (D50w Syringe) 25 ml Q15M PRN IV DECREASED GLUCOSE; Start 10/26/16 at 16:00 Dextrose (D50w Syringe) 50 ml Q15M PRN IV DECREASED GLUCOSE; Start 10/26/16 at 16:00 Glucagon (Glucagen) 1 mg Q15M PRN IM DECREASED GLUCOSE; Start 10/26/16 at 16:00 Glucose 15 gm 15 gm Q15M PRN BUCCAL DECREASED GLUCOSE; Start 10/26/16 at 16:00 Cefepime HCl 50 ml @ 100 mls/hr Q12 IVPB Last administered on 10/27/16t 08:41 ; Admin Dose 100 MLS/HR; Start 10/26/16 at 21:00 Metronidazole (Flagyl 500 Mg (Pmx)) 100 ml @ 100 mls/hr Q8 IVPB ; Start at 22:00 Citalopram Hydrobromide (Celexa) 20 mg DAILY PO ; Start 10/28/16 at 09:00 Emtricitabine/ Tenofovir (Truvada) 1 tab DAILY PO ; Start 10/27/16 at 18:00 Folic Acid (Folic Acid) 1 mg DAILY PO ; Start 10/28/16 at 09:00 Gabapentin (Neurontin) 300 mg TID PO ; Start 10/27/16 at 21:00 Miscellaneous Medication 400 mg 400 mg BID PO ; Start 10/27/16 at 21:00 Potassium Phosphate/Sodium Chloride (K Phos (Meq)/NS) 259.0909 ml @ 64.773 m... ONCE ONCE IVPB ; Start 10/27/16 at 18:00; Stop 10/27/16 at 21:59 DONNELL RAMOS NP Oct 27, 2016 20:04
[2016-10-27 21:19] VITALS: BP 122/76; RESP 20
[2016-10-27 21:48] VITALS: PULSE 87
[2016-10-27 22:34] VITALS: Ht 152.4 cm; Wt 75.5 kg
[2016-10-27] MEDS: RALTEGRAVIR 400 MG TAB PO SCH (22:44)
[2016-10-27] MEDS: GABAPENTIN 300 MG CAP PO SCH (22:44)
[2016-10-27] MEDS: metroNIDAZOLE 500 MG/NS (PMX) 100 ML IVPB SCH (22:44)
[2016-10-28] VITALS (11 sets, daily range): BP systolic 90–131; BP diastolic 54–78; PULSE 93–117; RESP 20
[2016-10-28] MEDS: AZITHROMYCIN 500MG/NS (PMX) 250 ML IV SCH (00:42)
[2016-10-28] MEDS: ACCUCHECK AT 2AM (Patients on SS coverage) XX SCH (02:00)
[2016-10-28] MEDS: DEXTROSE 5%-0.9% NACL 1,000 ML IV SCH ×3 (05:40→17:33)
[2016-10-28] MEDS: metroNIDAZOLE 500 MG/NS (PMX) 100 ML IVPB SCH ×3 (05:40→21:23)
[2016-10-28 06:49] LABS: ADD SCAN DIFF NO
[2016-10-28 06:55] LABS: ABNORMAL IP MESSAGE 1; HEMATOCRIT 33.7 % (37.0-47.0); HEMOGLOBIN 11.8 g/dl (12.0-16.0); MEAN CORPUSCULAR HEMOGLOBIN 32.7 pg (29.0-33.0); MEAN CORPUSCULAR VOLUME 93.4 fl (82.0-101.0); MEAN PLATELET VOLUME 9.6 fl (7.4-10.4); PLATELET COUNT 252 10^3/UL (140-415); RED BLOOD COUNT 3.61 10^6/ul (4.20-5.40); RED CELL DISTRIBUTION WIDTH 15.6 % (11.5-14.5); WHITE BLOOD COUNT 11.1 10^3/ul (4.8-10.8)
[2016-10-28 07:19] LABS: CALCIUM 7.3 mg/dl (8.4-10.2); CREATININE 0.83 mg/dl (0.44-1.00); MAGNESIUM 1.9 mg/dl (1.7-2.5); POTASSIUM 3.7 mmol/L (3.5-5.1)
[2016-10-28] MEDS: INSULIN ASPART [NOVOLOG] 3 ML PEN SC SCH ×4 (08:06→21:00)
[2016-10-28 10:38] LABS: LYMPHOCYTES # 0.9 10^3/ul (0.8-2.9); MONOCYTE # 0.7 10^3/ul (0.3-0.9); NEUTROPHIL # 8.9 10^3/ul (1.6-7.5)
[2016-10-28 10:39] LABS: PLATELET ESTIMATE PLT APPEAR ADEQUATE
[2016-10-28] MEDS: GABAPENTIN 300 MG CAP PO SCH ×3 (11:05→21:23)
[2016-10-28] MEDS: RALTEGRAVIR 400 MG TAB PO SCH ×2 (11:05→21:23)
[2016-10-28] MEDS: FOLIC ACID 1 MG TAB PO SCH (11:05)
[2016-10-28] MEDS: CITALOPRAM 20 MG TAB PO SCH (11:05)
[2016-10-28] MEDS: EMTRICITABINE/TENOFOVIR TAB PO SCH (11:05)
[2016-10-28] MEDS: ENOXAPARIN 40 MG/0.4 ML SYG SC SCH (11:07)
[2016-10-28] MEDS: FAMOTIDINE 20 MG TAB PO SCH (11:10)
[2016-10-28] MEDS: CEFEPIME 1GM/50 ML (PMX) 50 ML IVPB SCH ×2 (11:11→21:23)
[2016-10-28] MEDS ORDERED: morphine 2 MG INJ IV PRN (16:30)
[2016-10-28] MEDS ORDERED: HYDROCODONE/APAP (5/325) TAB PO PRN (16:30)
--- NOTE | 2016-10-28 18:05 | PN ---
Date/Time of Note Date/Time of Note DATE: 10/28/16 TIME: 18:03 Assessment/Plan VTE Prophylaxis VTE Prophylaxis Intervention: LMWH Assessment/Plan Chief Complaint/Hosp Course 1. Sepsis Shock 2/2 RUL pneumonia and/or C. difficile -Now off pressor support, IVF and abx - f/u culture results -CT chest shows possible indolent granulomatous airway infection, pulmonary consultation - ID consult appreciated, continue cefepime, azithromycin and Flagyl 2. Hx of HIV -ID consult appreciated -Resume home meds 3.Hx of Subarachnoid hemorrhage and hydrocephalus - non-acute issue 4. History of stroke - Cont aspirin 5. hx of Hypertension - hold meds given septic shock. Resume as needed Prophylaxis: Lovenox Problems: Subjective 24 Hr Interval Summary Constitutional: other (Weak) Exam/Review of Systems Vital Signs Vitals Vital Signs Date Time Temp Pulse Resp B/P Pulse Ox O2 Delivery O2 Flow Rate FiO2 10/28/16 16:18 102 10/28/16 15:25 98.2 20 117/72 96 10/27/16 20:20 Room Air 10/27/16 17:55 2.0 Intake and Output 10/27/16 10/27/16 10/28/16 15:00 23:00 07:00 Intake Total 100 ml 1550 ml Output Total 600 ml 900 ml Balance -500 ml 650 ml Exam Constitutional: alert Respiratory: clear to auscultation Cardiovascular: regular rate and rhythm Gastrointestinal: soft, No distended Musculoskeletal: nl extremities to inspection Results Result Diagram: 10/28/16 0548 10/28/16 0548 Results 24 hrs Laboratory Tests Test 10/27/16 18:47 10/27/16 23:00 10/28/16 05:48 10/28/16 08:04 Bedside Glucose 106 110 155 White Blood Count 11.1 #H Red Blood Count 3.61 L Hemoglobin 11.8 L Hematocrit 33.7 L Mean Corpuscular Volume 93.4 Mean Corpuscular Hemoglobin 32.7 Mean Corpuscular Hemoglobin Concent 35.0 Red Cell Distribution Width 15.6 H Platelet Count 252 Mean Platelet Volume 9.6 Neutrophils % 80.0 H Band Neutrophils % 6.0 H Lymphocytes % 8.0 L Monocytes % 6.0 Eosinophils % Basophils % Nucleated Red Blood Cells % Neutrophils # 8.9 H Lymphocytes # 0.9 Monocytes # 0.7 Eosinophils # Basophils # Nucleated Red Blood Cells # Platelet Estimate PLT APPEAR ADEQUATE Sodium Level 133 L Potassium Level 3.7 Chloride Level 110 Carbon Dioxide Level 17 L Anion Gap 10 Blood Urea Nitrogen 8 Creatinine 0.83 Glucose Level 147 # Calcium Level 7.3 L Phosphorus Level 2.0 L Magnesium Level 1.9 Test 10/28/16 12:30 10/28/16 17:56 Bedside Glucose 118 121 Medications Medications Current Medications Ondansetron HCl (Zofran Inj) 4 mg Q6H PRN IV NAUSEA AND/OR VOMITING; Start at 23:30 Lorazepam (Ativan) 1 mg Q2H PRN IV ANXIETY; Start 10/25/16 at 23:30 Magnesium Hydroxide (Milk Of Mag) 30 ml DAILY PRN PO CONSTIPATION; Start at 23:30 Famotidine (Pepcid) 20 mg DAILY PO Last administered on 10/28/16 11:10; Admin Dose 20 MG; Start 10/26/16 at 09:00 Enoxaparin Sodium 40 mg 40 mg DAILY SC Last administered on 10/28/16 11:07; Admin Dose 40 MG; Start 10/26/16 at 09:00 Azithromycin 250 ml @ 250 mls/hr Q24H IV Last administered on 10/28/16 00:42 ; Admin Dose 250 MLS/HR; Start 10/25/16 at 23:30 Dextrose/Sodium Chloride (D5-NS) 1,000 ml @ 120 mls/hr Q8H20M IV Last administered on 10/28/16 17:33; Admin Dose 120 MLS/HR; Start 10/25/16 at 23:30 Diagnostic Test (Pha) (Accu-Chek) 1 ea 02 XX Last administered on 10/27/16 02: 14; Admin Dose 1 EA; Start 10/27/16 at 02:00 Miscellaneous Information 1 ea NOTE XX ; Start 10/26/16 at 16:00 Glucose (Glutose) 15 gm Q15M PRN PO DECREASED GLUCOSE; Start 10/26/16 at 16:00 Glucose (Glutose) 22.5 gm Q15M PRN PO DECREASED GLUCOSE; Start 10/26/16 at 16: 00 Dextrose (D50w Syringe) 25 ml Q15M PRN IV DECREASED GLUCOSE; Start 10/26/16 at 16:00 Dextrose (D50w Syringe) 50 ml Q15M PRN IV DECREASED GLUCOSE; Start 10/26/16 at 16:00 Glucagon (Glucagen) 1 mg Q15M PRN IM DECREASED GLUCOSE; Start 10/26/16 at 16:00 Glucose 15 gm 15 gm Q15M PRN BUCCAL DECREASED GLUCOSE; Start 10/26/16 at 16:00 Cefepime HCl 50 ml @ 100 mls/hr Q12 IVPB Last administered on 10/28/16 11:11 ; Admin Dose 100 MLS/HR; Start 10/26/16 at 21:00 Metronidazole (Flagyl 500 Mg (Pmx)) 100 ml @ 100 mls/hr Q8 IVPB Last administered on 10/28/16 14:59; Admin Dose 100 MLS/HR; Start 10/27/16 at 22:00 Citalopram Hydrobromide (Celexa) 20 mg DAILY PO Last administered on 10/28/16 11:05; Admin Dose 20 MG; Start 10/28/16 at 09:00 Emtricitabine/ Tenofovir (Truvada) 1 tab DAILY PO Last administered on 11:05; Admin Dose 1 TAB; Start 10/27/16 at 18:00 Folic Acid (Folic Acid) 1 mg DAILY PO Last administered on 10/28/16 11:05; Admin Dose 1 MG; Start 10/28/16 at 09:00 Gabapentin (Neurontin) 300 mg TID PO Last administered on 10/28/16 12:31; Admin Dose 300 MG; Start 10/27/16 at 21:00 Miscellaneous Medication (Isentress) 400 mg BID PO Last administered on 11:05; Admin Dose 400 MG; Start 10/27/16 at 21:00 Morphine Sulfate (morphine) 2 mg Q3H PRN IV pain Last administered on 16:29; Admin Dose 2 MG; Start 10/28/16 at 16:30 Acetaminophen/ Hydrocodone Bitart ([place] (5/325)) 1 tab Q4H PRN PO PAIN; Start 10/28/16 at 16:30 ANICETO LEES Oct 28, 2016 18:04
--- NOTE | 2016-10-28 19:52 | CONS ---
Date/Time of Note Date/Time of Note DATE: 10/28/16 TIME: 19:39 Assessment/Plan Assessment/Plan Chief Complaint/Hosp Course ID PROGRESS NOTE ABX DAY #4 =>Cefepime, Flagyl, Azith 24H INTERVAL SUMMARY * HIV(+)/AIDS: on ARV meds: * Emtricitabine-Tenofovir* (Truvada*) 200-300 Mg Tablet, 1 TAB PO DAILY, TAB * Raltegravir Potassium* (Isentress*) 400 Mg Tablet, 400 MG PO BID, TAB * HOME ABX HIV/AIDS: Voriconazole*200 Mg Tablet, 200 MG PO DAILY, TAB + Sulfamethoxazole/Trimethoprim Ds 1 Tab Tablet, 1 TAB PO BID * Fevers resolved, WBC up to 11.2, mild tachycardia 102 -- lethargy persisting * 10/28/16 0548 10/28/16 0548 PHYSICAL EXAMINATION: GENERAL: 61 yo F lethargic on supplemental O2, awakens HEENT: Unremarkable NECK: Supple, trachea midline. CHEST: Rise symmetrical, (+)scattered rhonchi HEART: Pulse RRR ABDOMEN: Distended, ascites EXTREMITIES: Warm, dry, no edema ID ASSESSMENT 61 yo F w/PMHx HTN, CVA->Ruptured cerebral aneurysm with: 1. Sepsis on presentation to ED 10/25 w/fevers, transient hypotension, leukocytosis and tachycardia due to #2 2. Persistent PNA 3. HIV(+)/AIDS Dx ~prior to 2011, reportedly compliant with ARV meds: * Emtricitabine-Tenofovir* (Truvada*) 200-300 Mg Tablet, 1 TAB PO DAILY, TAB * Raltegravir Potassium* (Isentress*) 400 Mg Tablet, 400 MG PO BID, TAB * HOME ABX HIV/AIDS: * Voriconazole* (Voriconazole*) 200 Mg Tablet, 200 MG PO DAILY, TAB * Sulfamethoxazole/Trimethoprim (Sulfamethoxazole Tmp Ds Tab) 1 Tab Tablet, 1 TAB PO BID 4. MARA while on Tenofovir -> Improved 5. HTN 6. Cirrhosis w/Fatty Liver, mild ascites 7. GERD, Gastritis, hx of PUD 8. Thyroid disorder 9. 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 Depression 11. Vit D deficiency 12. Chronic opioid dependency = failed back pain syndrome INVASIVES: PIV, ABX ALLERGY: KNDA CURRENT ABX: #5 =>Cefepime, Flagyl, Azith ID RECOMMENDATIONS 1. Overall she is stable on current ABX * HIV labs ordered 10/27 appears were not drawn in between the transition from ED nurse to Floor nurse - reordered for am * Apparently she was being treated with VFEND and BACTRIM at home for PNA of unknown etiology -> Cocci, Crypto ordered * May be on Vfend for esophageal candidiasis per hx of severe GERD/Gastritis - > WILL NOT ORDER DUE TO DRUG DRUG INTERACTIONS WITH CURRENT MEDS * May have been on Bactrim for PNA vs SBP, reportedly she is compliant w/ARV meds; hence doubt PCP/PJC PNA = HOLD BACTRIM FOR NOW. 2. 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 . Problems: Consultation Date/Type/Reason Admit Date/Time Oct 25, 2016 at 21:43 Exam/Review of Systems Vital Signs Vitals Vital Signs Date Time Temp Pulse Resp B/P Pulse Ox O2 Delivery O2 Flow Rate FiO2 10/28/16 16:18 102 10/28/16 15:25 98.2 20 117/72 96 10/27/16 20:20 Room Air 10/27/16 17:55 2.0 Intake and Output 10/27/16 10/27/16 10/28/16 15:00 23:00 07:00 Intake Total 100 ml 1550 ml Output Total 600 ml 900 ml Balance -500 ml 650 ml Results Result Diagram: 10/28/16 0548 10/28/16 0548 Results 24 hrs Laboratory Tests Test 10/27/16 23:00 10/28/16 05:48 10/28/16 08:04 10/28/16 12:30 Bedside Glucose 110 155 118 White Blood Count 11.1 #H Red Blood Count 3.61 L Hemoglobin 11.8 L Hematocrit 33.7 L Mean Corpuscular Volume 93.4 Mean Corpuscular Hemoglobin 32.7 Mean Corpuscular Hemoglobin Concent 35.0 Red Cell Distribution Width 15.6 H Platelet Count 252 Mean Platelet Volume 9.6 Neutrophils % 80.0 H Band Neutrophils % 6.0 H Lymphocytes % 8.0 L Monocytes % 6.0 Eosinophils % Basophils % Nucleated Red Blood Cells % Neutrophils # 8.9 H Lymphocytes # 0.9 Monocytes # 0.7 Eosinophils # Basophils # Nucleated Red Blood Cells # Platelet Estimate PLT APPEAR ADEQUATE Sodium Level 133 L Potassium Level 3.7 Chloride Level 110 Carbon Dioxide Level 17 L Anion Gap 10 Blood Urea Nitrogen 8 Creatinine 0.83 Glucose Level 147 # Calcium Level 7.3 L Phosphorus Level 2.0 L Magnesium Level 1.9 Test 10/28/16 17:56 Bedside Glucose 121 Medications Medications Current Medications Ondansetron HCl (Zofran Inj) 4 mg Q6H PRN IV NAUSEA AND/OR VOMITING; Start at 23:30 Lorazepam (Ativan) 1 mg Q2H PRN IV ANXIETY; Start 10/25/16 at 23:30 Magnesium Hydroxide (Milk Of Mag) 30 ml DAILY PRN PO CONSTIPATION; Start at 23:30 Famotidine (Pepcid) 20 mg DAILY PO Last administered on 10/28/16 11:10; Admin Dose 20 MG; Start 10/26/16 at 09:00 Enoxaparin Sodium 40 mg 40 mg DAILY SC Last administered on 10/28/16 11:07; Admin Dose 40 MG; Start 10/26/16 at 09:00 Azithromycin 250 ml @ 250 mls/hr Q24H IV Last administered on 10/28/16 00:42 ; Admin Dose 250 MLS/HR; Start 10/25/16 at 23:30 Dextrose/Sodium Chloride (D5-NS) 1,000 ml @ 120 mls/hr Q8H20M IV Last administered on 10/28/16 17:33; Admin Dose 120 MLS/HR; Start 10/25/16 at 23:30 Diagnostic Test (Pha) (Accu-Chek) 1 ea 02 XX Last administered on 10/27/16 02: 14; Admin Dose 1 EA; Start 10/27/16 at 02:00 Miscellaneous Information 1 ea NOTE XX ; Start 10/26/16 at 16:00 Glucose (Glutose) 15 gm Q15M PRN PO DECREASED GLUCOSE; Start 10/26/16 at 16:00 Glucose (Glutose) 22.5 gm Q15M PRN PO DECREASED GLUCOSE; Start 10/26/16 at 16: 00 Dextrose (D50w Syringe) 25 ml Q15M PRN IV DECREASED GLUCOSE; Start 10/26/16 at 16:00 Dextrose (D50w Syringe) 50 ml Q15M PRN IV DECREASED GLUCOSE; Start 10/26/16 at 16:00 Glucagon (Glucagen) 1 mg Q15M PRN IM DECREASED GLUCOSE; Start 10/26/16 at 16:00 Glucose 15 gm 15 gm Q15M PRN BUCCAL DECREASED GLUCOSE; Start 10/26/16 at 16:00 Cefepime HCl 50 ml @ 100 mls/hr Q12 IVPB Last administered on 10/28/16 11:11 ; Admin Dose 100 MLS/HR; Start 10/26/16 at 21:00 Metronidazole (Flagyl 500 Mg (Pmx)) 100 ml @ 100 mls/hr Q8 IVPB Last administered on 10/28/16 14:59; Admin Dose 100 MLS/HR; Start 10/27/16 at 22:00 Citalopram Hydrobromide (Celexa) 20 mg DAILY PO Last administered on 10/28/16 11:05; Admin Dose 20 MG; Start 10/28/16 at 09:00 Emtricitabine/ Tenofovir (Truvada) 1 tab DAILY PO Last administered on 11:05; Admin Dose 1 TAB; Start 10/27/16 at 18:00 Folic Acid (Folic Acid) 1 mg DAILY PO Last administered on 10/28/16 11:05; Admin Dose 1 MG; Start 10/28/16 at 09:00 Gabapentin (Neurontin) 300 mg TID PO Last administered on 10/28/16 12:31; Admin Dose 300 MG; Start 10/27/16 at 21:00 Miscellaneous Medication (Isentress) 400 mg BID PO Last administered on 11:05; Admin Dose 400 MG; Start 10/27/16 at 21:00 Morphine Sulfate (morphine) 2 mg Q3H PRN IV pain Last administered on 16:29; Admin Dose 2 MG; Start 10/28/16 at 16:30 Acetaminophen/ Hydrocodone Bitart ([place] (5/325)) 1 tab Q4H PRN PO PAIN; Start 10/28/16 at 16:30 DONNELL RAMOS NP Oct 28, 2016 19:49
[2016-10-29] VITALS (14 sets, daily range): BP systolic 113–137; BP diastolic 64–80; PULSE 90–162; RESP 18–20
[2016-10-29] MEDS: AZITHROMYCIN 500MG/NS (PMX) 250 ML IV SCH (00:16)
[2016-10-29] MEDS: DEXTROSE 5%-0.9% NACL 1,000 ML IV SCH ×2 (00:18→10:04)
[2016-10-29] MEDS: ACCUCHECK AT 2AM (Patients on SS coverage) XX SCH (02:00)
[2016-10-29] MEDS: metroNIDAZOLE 500 MG/NS (PMX) 100 ML IVPB SCH ×3 (05:26→21:03)
[2016-10-29 06:43] LABS: ADD SCAN DIFF NO
[2016-10-29 06:49] LABS: BASOPHILS % 0.3 % (0.0-2.0); EOSINOPHILS # 0.1 10^3/ul (0.0-0.5); EOSINOPHILS % 0.9 % (0.0-7.0); HEMATOCRIT 31.8 % (37.0-47.0); HEMOGLOBIN 10.9 g/dl (12.0-16.0); LYMPHOCYTES # 1.4 10^3/ul (0.8-2.9); LYMPHOCYTES % 19.4 % (15.0-51.0); MEAN CORPUSCULAR HEMOGLOBIN 32.5 pg (29.0-33.0); MEAN CORPUSCULAR HGB CONC 34.3 g/dl (32.0-37.0); MEAN CORPUSCULAR VOLUME 94.9 fl (82.0-101.0); MEAN PLATELET VOLUME 9.4 fl (7.4-10.4); MONOCYTE # 0.5 10^3/ul (0.3-0.9); MONOCYTES % 6.7 % (0.0-11.0); NEUTROPHILS % 71.4 % (39.0-77.0); PLATELET COUNT 230 10^3/UL (140-415); RED BLOOD COUNT 3.35 10^6/ul (4.20-5.40); RED CELL DISTRIBUTION WIDTH 15.9 % (11.5-14.5); WHITE BLOOD COUNT 7.1 10^3/ul (4.8-10.8)
[2016-10-29 07:06] LABS: POTASSIUM 3.3 mmol/L (3.5-5.1)
[2016-10-29 07:08] LABS: CREATININE 0.88 mg/dl (0.44-1.00)
[2016-10-29 07:09] LABS: CALCIUM 7.1 mg/dl (8.4-10.2); MAGNESIUM 1.8 mg/dl (1.7-2.5); PHOSPHORUS 1.8 mg/dl (2.5-4.9)
[2016-10-29] MEDS: INSULIN ASPART [NOVOLOG] 3 ML PEN SC SCH ×4 (07:55→21:00)
[2016-10-29] MEDS: FAMOTIDINE 20 MG TAB PO SCH (09:37)
[2016-10-29] MEDS: GABAPENTIN 300 MG CAP PO SCH ×3 (09:37→21:03)
[2016-10-29] MEDS: FOLIC ACID 1 MG TAB PO SCH (09:37)
[2016-10-29] MEDS: CITALOPRAM 20 MG TAB PO SCH (09:37)
[2016-10-29] MEDS: RALTEGRAVIR 400 MG TAB PO SCH ×2 (09:37→21:03)
[2016-10-29] MEDS: EMTRICITABINE/TENOFOVIR TAB PO SCH (09:37)
[2016-10-29] MEDS: CEFEPIME 1GM/50 ML (PMX) 50 ML IVPB SCH ×2 (09:38→22:56)
[2016-10-29] MEDS: ENOXAPARIN 40 MG/0.4 ML SYG SC SCH (10:04)
--- NOTE | 2016-10-29 11:29 | CONS ---
Date/Time of Note Date/Time of Note DATE: 10/29/16 TIME: 11:28 Consultation Date/Type/Reason Admit Date/Time Oct 25, 2016 at 21:43 Date of Consultation: October 29, 2016 Type of Consultation: pulmonary Reason for Consultation dictated # [id number] 10-31-16 Constitutional: other (Weak) Social History Alcohol Use: none Smoking Status: Never smoker Drug Use: none Exam/Review of Systems Vital Signs Vitals Vital Signs Date Time Temp Pulse Resp B/P Pulse Ox O2 Delivery O2 Flow Rate FiO2 10/29/16 08:16 91 10/29/16 07:47 98.0 18 123/64 97 10/27/16 20:20 Room Air 10/27/16 17:55 2.0 Intake and Output 10/28/16 10/28/16 10/29/16 15:00 23:00 07:00 Intake Total 500 ml 1150 ml Output Total 400 ml 500 ml Balance 100 ml 650 ml Results Result Diagram: 10/29/16 0610 10/29/16 0610 Results 24 hrs Laboratory Tests Test 10/28/16 12:30 10/28/16 17:56 10/28/16 21:27 10/29/16 06:10 Bedside Glucose 118 121 120 White Blood Count 7.1 # Red Blood Count 3.35 L Hemoglobin 10.9 L Hematocrit 31.8 L Mean Corpuscular Volume 94.9 Mean Corpuscular Hemoglobin 32.5 Mean Corpuscular Hemoglobin Concent 34.3 Red Cell Distribution Width 15.9 H Platelet Count 230 Mean Platelet Volume 9.4 Neutrophils % 71.4 Lymphocytes % 19.4 Monocytes % 6.7 Eosinophils % 0.9 Basophils % 0.3 Nucleated Red Blood Cells % 0.0 Neutrophils # 5.0 Lymphocytes # 1.4 Monocytes # 0.5 Eosinophils # 0.1 Basophils # 0.0 Nucleated Red Blood Cells # 0.0 Sodium Level 135 Potassium Level 3.3 L Chloride Level 109 Carbon Dioxide Level 19 L Anion Gap 10 Blood Urea Nitrogen 8 Creatinine 0.88 Glucose Level 89 # Calcium Level 7.1 L Phosphorus Level 1.8 L Magnesium Level 1.8 Test 10/29/16 08:03 Bedside Glucose 90 Medications Medications Current Medications Ondansetron HCl (Zofran Inj) 4 mg Q6H PRN IV NAUSEA AND/OR VOMITING; Start at 23:30 Lorazepam (Ativan) 1 mg Q2H PRN IV ANXIETY; Start 10/25/16 at 23:30 Magnesium Hydroxide (Milk Of Mag) 30 ml DAILY PRN PO CONSTIPATION; Start at 23:30 Famotidine (Pepcid) 20 mg DAILY PO Last administered on 10/29/16 09:37; Admin Dose 20 MG; Start 10/26/16 at 09:00 Enoxaparin Sodium 40 mg 40 mg DAILY SC Last administered on 10/29/16 10:04; Admin Dose 40 MG; Start 10/26/16 at 09:00 Azithromycin 250 ml @ 250 mls/hr Q24H IV Last administered on 10/29/16 00:16; Admin Dose 250 MLS/HR; Start 10/25/16 at 23:30 Dextrose/Sodium Chloride (D5-NS) 1,000 ml @ 120 mls/hr Q8H20M IV Last administered on 10/29/16 10:04; Admin Dose 120 MLS/HR; Start 10/25/16 at 23:30 Diagnostic Test (Pha) (Accu-Chek) 1 ea 02 XX Last administered on 10/27/16 02: 14; Admin Dose 1 EA; Start 10/27/16 at 02:00 Miscellaneous Information 1 ea NOTE XX ; Start 10/26/16 at 16:00 Glucose (Glutose) 15 gm Q15M PRN PO DECREASED GLUCOSE; Start 10/26/16 at 16:00 Glucose (Glutose) 22.5 gm Q15M PRN PO DECREASED GLUCOSE; Start 10/26/16 at 16: 00 Dextrose (D50w Syringe) 25 ml Q15M PRN IV DECREASED GLUCOSE; Start 10/26/16 at 16:00 Dextrose (D50w Syringe) 50 ml Q15M PRN IV DECREASED GLUCOSE; Start 10/26/16 at 16:00 Glucagon (Glucagen) 1 mg Q15M PRN IM DECREASED GLUCOSE; Start 10/26/16 at 16:00 Glucose 15 gm 15 gm Q15M PRN BUCCAL DECREASED GLUCOSE; Start 10/26/16 at 16:00 Cefepime HCl 50 ml @ 100 mls/hr Q12 IVPB Last administered on 10/29/16 09:38; Admin Dose 100 MLS/HR; Start 10/26/16 at 21:00 Metronidazole (Flagyl 500 Mg (Pmx)) 100 ml @ 100 mls/hr Q8 IVPB Last administered on 10/29/16 05:26; Admin Dose 100 MLS/HR; Start 10/27/16 at 22:00 Citalopram Hydrobromide (Celexa) 20 mg DAILY PO Last administered on 10/29/16 09:37; Admin Dose 20 MG; Start 10/28/16 at 09:00 Emtricitabine/ Tenofovir (Truvada) 1 tab DAILY PO Last administered on 09:37; Admin Dose 1 TAB; Start 10/27/16 at 18:00 Folic Acid (Folic Acid) 1 mg DAILY PO Last administered on 10/29/16 09:37; Admin Dose 1 MG; Start 10/28/16 at 09:00 Gabapentin (Neurontin) 300 mg TID PO Last administered on 10/29/16 09:37; Admin Dose 300 MG; Start 10/27/16 at 21:00 Miscellaneous Medication (Isentress) 400 mg BID PO Last administered on 09:37; Admin Dose 400 MG; Start 10/27/16 at 21:00 Morphine Sulfate (morphine) 2 mg Q3H PRN IV pain Last administered on 16:29; Admin Dose 2 MG; Start 10/28/16 at 16:30 Acetaminophen/ Hydrocodone Bitart ([place] (5/325)) 1 tab Q4H PRN PO PAIN; Start 10/28/16 at 16:30 MADDIE CUEVAS October 29, 2016 11:29
--- NOTE | 2016-10-29 13:05 | PN ---
Date/Time of Note Date/Time of Note DATE: 10/29/16 TIME: 13:03 Assessment/Plan VTE Prophylaxis VTE Prophylaxis Intervention: LMWH Lines/Catheters IV Catheter Type (from Nrs): Central Line Central line still needed: Yes (Septic shock IV abxm multiple, difficult peripherl access ) Urinary Cath still in place: Yes Reason Cath still needed: other (indicate) (d/c babcock catheter ) Assessment/Plan Assessment/Plan 1. Sepsis Shock 2/2 RUL pneumonia and/or C. difficile -Now off pressor support, IVF and abx - VRE in Stool , ID following -CT chest shows possible indolent granulomatous airway infection, pulmonary consultation continue cefepime, azithromycin and Flagyl 2. Hx of HIV -ID consult appreciated -Resume home meds 3.Hx of Subarachnoid hemorrhage and hydrocephalus - non-acute issue 4. History of stroke - Cont aspirin 5. hx of Hypertension - hold meds given septic shock. Resume as needed Prophylaxis: Lovenox d/c IVF, d/c babcock catheter, Transfer to med/surge floor potassium phosphate 15mmmol IV x 1 dose now Subjective 24 Hr Interval Summary Free Text/Dictation doing ok, tolerating po diet, K low, PO4 low Exam/Review of Systems Vital Signs Vitals Vital Signs Date Time Temp Pulse Resp B/P Pulse Ox O2 Delivery O2 Flow Rate FiO2 10/29/16 12:25 93 10/29/16 12:03 98.0 18 120/76 98 10/27/16 20:20 Room Air 10/27/16 17:55 2.0 Intake and Output 10/28/16 10/28/16 10/29/16 15:00 23:00 07:00 Intake Total 500 ml 1150 ml Output Total 400 ml 500 ml Balance 100 ml 650 ml Exam Constitutional: alert Respiratory: clear to auscultation Cardiovascular: regular rate and rhythm Gastrointestinal: soft, No distended Musculoskeletal: nl extremities to inspection Results Result Diagram: 10/29/16 0610 10/29/16 0610 Results 24 hrs Laboratory Tests Test 10/28/16 17:56 10/28/16 21:27 10/29/16 06:10 10/29/16 08:03 Bedside Glucose 121 120 90 White Blood Count 7.1 # Red Blood Count 3.35 L Hemoglobin 10.9 L Hematocrit 31.8 L Mean Corpuscular Volume 94.9 Mean Corpuscular Hemoglobin 32.5 Mean Corpuscular Hemoglobin Concent 34.3 Red Cell Distribution Width 15.9 H Platelet Count 230 Mean Platelet Volume 9.4 Neutrophils % 71.4 Lymphocytes % 19.4 Monocytes % 6.7 Eosinophils % 0.9 Basophils % 0.3 Nucleated Red Blood Cells % 0.0 Neutrophils # 5.0 Lymphocytes # 1.4 Monocytes # 0.5 Eosinophils # 0.1 Basophils # 0.0 Nucleated Red Blood Cells # 0.0 Sodium Level 135 Potassium Level 3.3 L Chloride Level 109 Carbon Dioxide Level 19 L Anion Gap 10 Blood Urea Nitrogen 8 Creatinine 0.88 Glucose Level 89 # Calcium Level 7.1 L Phosphorus Level 1.8 L Magnesium Level 1.8 Test 10/29/16 12:08 Bedside Glucose 93 Medications Medications Current Medications Ondansetron HCl (Zofran Inj) 4 mg Q6H PRN IV NAUSEA AND/OR VOMITING; Start at 23:30 Lorazepam (Ativan) 1 mg Q2H PRN IV ANXIETY; Start 10/25/16 at 23:30 Magnesium Hydroxide (Milk Of Mag) 30 ml DAILY PRN PO CONSTIPATION; Start at 23:30 Famotidine (Pepcid) 20 mg DAILY PO Last administered on 10/29/16 09:37; Admin Dose 20 MG; Start 10/26/16 at 09:00 Enoxaparin Sodium 40 mg 40 mg DAILY SC Last administered on 10/29/16 10:04; Admin Dose 40 MG; Start 10/26/16 at 09:00 Azithromycin (Zithromax 500mg/ NS (Pmx)) 250 ml @ 250 mls/hr Q24H IV Last administered on 10/29/16 00:16; Admin Dose 250 MLS/HR; Start 10/25/16 at 23:30 Diagnostic Test (Pha) (Accu-Chek) 1 ea 02 XX Last administered on 10/27/16 02: 14; Admin Dose 1 EA; Start 10/27/16 at 02:00 Miscellaneous Information 1 ea NOTE XX ; Start 10/26/16 at 16:00 Glucose (Glutose) 15 gm Q15M PRN PO DECREASED GLUCOSE; Start 10/26/16 at 16:00 Glucose (Glutose) 22.5 gm Q15M PRN PO DECREASED GLUCOSE; Start 10/26/16 at 16: 00 Dextrose (D50w Syringe) 25 ml Q15M PRN IV DECREASED GLUCOSE; Start 10/26/16 at 16:00 Dextrose (D50w Syringe) 50 ml Q15M PRN IV DECREASED GLUCOSE; Start 10/26/16 at 16:00 Glucagon (Glucagen) 1 mg Q15M PRN IM DECREASED GLUCOSE; Start 10/26/16 at 16:00 Glucose 15 gm 15 gm Q15M PRN BUCCAL DECREASED GLUCOSE; Start 10/26/16 at 16:00 Cefepime HCl 50 ml @ 100 mls/hr Q12 IVPB Last administered on 10/29/16 09:38; Admin Dose 100 MLS/HR; Start 10/26/16 at 21:00 Metronidazole (Flagyl 500 Mg (Pmx)) 100 ml @ 100 mls/hr Q8 IVPB Last administered on 10/29/16 05:26; Admin Dose 100 MLS/HR; Start 10/27/16 at 22:00 Citalopram Hydrobromide (Celexa) 20 mg DAILY PO Last administered on 10/29/16 09:37; Admin Dose 20 MG; Start 10/28/16 at 09:00 Emtricitabine/ Tenofovir (Truvada) 1 tab DAILY PO Last administered on 09:37; Admin Dose 1 TAB; Start 10/27/16 at 18:00 Folic Acid (Folic Acid) 1 mg DAILY PO Last administered on 10/29/16 09:37; Admin Dose 1 MG; Start 10/28/16 at 09:00 Gabapentin (Neurontin) 300 mg TID PO Last administered on 10/29/16 09:37; Admin Dose 300 MG; Start 10/27/16 at 21:00 Miscellaneous Medication (Isentress) 400 mg BID PO Last administered on 09:37; Admin Dose 400 MG; Start 10/27/16 at 21:00 Morphine Sulfate (morphine) 2 mg Q3H PRN IV pain Last administered on 16:29; Admin Dose 2 MG; Start 10/28/16 at 16:30 Acetaminophen/ Hydrocodone Bitart ([place] (5/325)) 1 tab Q4H PRN PO PAIN; Start 10/28/16 at 16:30 PAULETTE JONES MD October 29, 2016 13:05
[2016-10-29 13:38] LABS: LYMPHOCYTE - CD4/CD8 RATIO 0.26 (0.86-5.00)
[2016-10-29] MEDS ORDERED: POTASSIUM PHOSPHATE 15 MM in SOD CHLORIDE 0.9% 250 ML IVPB ONE (14:30)
--- NOTE | 2016-10-29 14:37 | CONS ---
DATE OF ADMISSION: 10/25/2016 DATE OF CONSULTATION: TYPE OF CONSULTATION: Pulmonary. REFERRING PHYSICIAN: Dr. Love. REASON FOR REFERRAL: Evaluation of right upper lobe pneumonia. HISTORY OF PRESENT ILLNESS: Ms. Amin is a 61-year-old woman who came into the hospital on the of last month with complaints of having cough, fever, and sputum production. Upon eval uation, a chest x-ray was done which is showing right upper lobe pneumonia. Patient subsequently tristan d a CT scan of the chest done on last which is confirming the same. However, there is some evidence that the findings may be somewhat chronic in etiology as well. The patient has been started on antibiotics and is feeling much better now. There is significant improvement in shortnes s of breath. Denies any shortness of breath, coughing or sputum production. Patient denies any hem optysis. PAST MEDICAL HISTORY: 1. History of human immunodeficiency virus positive, on HAART regimen. 2. History of cerebrovascular accident with subarachnoid hemorrhage. 3. Hydrocephalus. 4. Hypothyroidism. 5. Gastritis. 6. No known history of opportunistic infections. MEDICATIONS: Currently the patient is on: 1. Cefepime 1 gram IV q.12h. 2. Zithromax 500 mg IV daily. 3. Flagyl 500 mg IV q.8h. 4. Lovenox 40 mg daily subcutaneously. 5. Folic acid 1 mg a day. 6. Neurontin 300 mg t.i.d. 7. Hydrocodone on a p.r.n. basis. 8. Sliding scale insulin. 9. Isentress 400 mg b.i.d. ALLERGIES: 1. ACETAMINOPHEN 2. HYDROCODONE. SOCIAL HISTORY: Never smoked. No history of alcohol or drug abuse. FAMILY HISTORY: The patient is single. No history of any illnesses in the family. OCCUPATIONAL HISTORY: The patient is on disability. REVIEW OF SYSTEMS: The patient denies any headache, any seizures, any dysphagia, any chest pain, max rtness of breath, cough, sputum production have improved. Denies any hemoptysis, any abdominal pain , nausea, vomiting, melena, hematochezia, urinary symptoms, any edema, any weight change. PHYSICAL EXAMINATION: GENERAL: Middle-aged woman, awake, alert, currently in no distress. VITAL SIGNS: Temperature is 98.8 degrees Fahrenheit, heart rate is 98 per minute, respiratory rate is 18 per minute, O2 sat is 97%, blood pressure is 123/64. HEENT: Supple neck, no JVD, no lymphadenopathy, midline trachea, no thyromegaly pharynx clear, no n jessica bruits. There is no thrush. Patient has good dentition. Pupils are mid-size, reactive to ligh t bilaterally. Extraocular movements are intact. CHEST: Clear to auscultation. HEART: S1, S2 audible, no murmurs, regular rhythm. ABDOMEN: Soft, nontender, nondistended. No organomegaly. Bowel sounds audible. EXTREMITIES: No peripheral edema. NEUROLOGIC: No obvious focal deficits. LABORATORY DATA: Chest x-ray was reviewed from of last month which is showing area of linear a telectasis involving the right upper lobe. CT scan of the chest was reviewed from of last tc h which is showing a dense consolidation involving right upper lobe with areas of fibrosis. Initial white cell count was 13.6 from today to 7.1, hemoglobin from today was 10.9, platelet count of 230. Sodium 135, potassium 3.3, chloride 109, bicarbonate 19, glucose of 89, BUN 8, creatinine 0.8. ASSESSMENT AND PLAN: 1. Patient admitted for right upper lobe pneumonia with some element of chronicity to it. 2. History of being HIV positive, currently on treatment with no history of any opportunistic infec tions. It is not clear what initially got scarring in the right upper lobe area. 3. History of subarachnoid hemorrhage. 4. Hydrocephalus. 5. Hypothyroidism. 6. Gastritis. RECOMMENDATIONS: Continue current treatment for now. Obtain followup chest x-ray in 48 hours. Dictated By: MADDIE AVERY/KATIE Conf#: [id number] DID#: [id number]
--- NOTE | 2016-10-29 15:46 | PN ---
DATE: 10/29/2016 SUBJECTIVE: No acute changes. The patient is alert, looks comfortable. Denies pain, no fevers. WBC 7.1, no shift, no bands. BUN 8, creatinine 0.88. MICROBIOLOGY: Blood and urine culture negative. Stool for C. diff came back positive. ANTIMICROBIALS: The patient is on Flagyl. She is also on [place]entress Truvada. She is getting cefepime and Zithromax day #5 today. PHYSICAL EXAMINATION: GENERAL: This is a well-developed, ill-appearing, obese, middle-aged woman who is in no distress. HEENT: Head atraumatic, normocephalic. Sclerae anicteric. Buccal mucosa dry. NECK: Supple. CHEST: Rise symmetrical. Breath sounds diminished to bases. HEART: S1, S2. ABDOMEN: Soft, bowel tones present. EXTREMITIES: No cyanosis. ASSESSMENT: 1. Resolving sepsis with fevers, hypotension, leukocytosis and tachycardia on admission. 2. Pneumonia. 3. Human immunodeficiency virus, remains on human immunodeficiency virus medications pending CD4 co unt. 4. Hypertension. 5. Liver cirrhosis. 6. Clostridium difficile colitis. PLAN: The patient remains clinically stable. Pulmonary team evaluated her today. She is on appropri ate antimicrobials. We will continue her on current regimen. Dictated By: MARIELOS OMALLEY MANAGER OF SCHOOL for KALEB ROWLEY/KATIE Conf#: [id number] DID#: [id number]
[2016-10-30] VITALS (7 sets, daily range): BP systolic 105–140; BP diastolic 72–82; PULSE 99; RESP 18–20
[2016-10-30] MEDS: AZITHROMYCIN 500MG/NS (PMX) 250 ML IV SCH (01:00)
[2016-10-30] MEDS: ACCUCHECK AT 2AM (Patients on SS coverage) XX SCH (01:01)
[2016-10-30] MEDS: metroNIDAZOLE 500 MG/NS (PMX) 100 ML IVPB SCH ×3 (05:06→22:15)
[2016-10-30] MEDS: INSULIN ASPART [NOVOLOG] 3 ML PEN SC SCH ×4 (07:55→21:00)
[2016-10-30] MEDS: EMTRICITABINE/TENOFOVIR TAB PO SCH (08:49)
[2016-10-30] MEDS: CEFEPIME 1GM/50 ML (PMX) 50 ML IVPB SCH ×2 (08:49→21:28)
[2016-10-30] MEDS: RALTEGRAVIR 400 MG TAB PO SCH ×2 (08:49→21:29)
[2016-10-30] MEDS: GABAPENTIN 300 MG CAP PO SCH ×3 (08:49→21:29)
[2016-10-30] MEDS: CITALOPRAM 20 MG TAB PO SCH (08:49)
[2016-10-30] MEDS: FAMOTIDINE 20 MG TAB PO SCH (08:49)
[2016-10-30] MEDS: FOLIC ACID 1 MG TAB PO SCH (08:49)
[2016-10-30] MEDS: ENOXAPARIN 40 MG/0.4 ML SYG SC SCH (08:55)
[2016-10-30 09:00] LABS: INR 1.39; PROTIME 17.1 Sec (12.2-14.2); PT RATIO 1.3
[2016-10-30 09:01] LABS: PARTIAL THROMBOPLASTIN TIME 35.4 Sec (25.0-35.0)
[2016-10-30 09:13] LABS: MAGNESIUM 1.8 mg/dl (1.7-2.5); PHOSPHORUS 2.7 mg/dl (2.5-4.9)
[2016-10-30 09:42] LABS: CALCIUM 7.4 mg/dl (8.4-10.2); CREATININE 0.75 mg/dl (0.44-1.00); POTASSIUM 3.6 mmol/L (3.5-5.1)
--- NOTE | 2016-10-30 10:48 | CONS ---
Date/Time of Note Date/Time of Note DATE: 10/30/16 TIME: 10:46 Assessment/Plan Assessment/Plan Additional Assessment/Plan Assessment recommendations; 1. Patient admitted for right upper lobe pneumonia with some element of chronic appearing fibrotic changes in that area. 2. HIV positive currently on HAART regimen. 3. History of hydrocephalus and subarachnoid hemorrhage. 4. Hypothyroidism. 5. History of gastritis. Continue current treatment. Consultation Date/Type/Reason Admit Date/Time Oct 25, 2016 at 21:43 Initial Consult Date 10/29/16 Type of Consultation: pulmonary 24 HR Interval Summary Free Text/Dictation Patient condition is stable. Remains awake alert. Denies any shortness of breath, chest congestion, sputum production fever chills. General exam; elderly lady, awake alert currently in no distress. Exam/Review of Systems Vital Signs Vitals Vital Signs Date Time Temp Pulse Resp B/P Pulse Ox O2 Delivery O2 Flow Rate FiO2 10/30/16 07:44 98.6 86 20 116/72 92 10/27/16 20:20 Room Air 10/27/16 17:55 2.0 Intake and Output 10/29/16 10/29/16 10/30/16 15:00 23:00 07:00 Intake Total 800 ml 520 ml Output Total 400 ml Balance 400 ml 520 ml Exam HEENT exam is; supple neck, no JVD. No lymphadenopathy. Midline trachea. No thyromegaly. Pharynx is clear. No oral thrush. Chest examination; clear to auscultation. S1-S2 audible, no murmurs. Regular rhythm. Abdomen examination; soft, nondistended bowel sounds audible. Next Extremity examination; no peripheral edema. 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 Results Result Diagram: 10/29/16 0610 10/30/16 0735 Results 24 hrs Laboratory Tests Test 10/29/16 12:08 10/29/16 17:50 10/29/16 21:01 10/30/16 07:35 Bedside Glucose 93 80 75 Prothrombin Time 17.1 H Prothrombin Time Ratio 1.3 INR International Normalized Ratio 1.39 Activated Partial Thromboplast Time 35.4 H Sodium Level 131 L Potassium Level 3.6 Chloride Level 108 Carbon Dioxide Level 19 L Anion Gap 8 Blood Urea Nitrogen 8 Creatinine 0.75 Glucose Level 70 Calcium Level 7.4 L Phosphorus Level 2.7 Magnesium Level 1.8 Test 10/30/16 07:49 Bedside Glucose 74 Medications Medications Current Medications Ondansetron HCl (Zofran Inj) 4 mg Q6H PRN IV NAUSEA AND/OR VOMITING; Start at 23:30 Lorazepam (Ativan) 1 mg Q2H PRN IV ANXIETY; Start 10/25/16 at 23:30 Magnesium Hydroxide (Milk Of Mag) 30 ml DAILY PRN PO CONSTIPATION; Start at 23:30 Famotidine (Pepcid) 20 mg DAILY PO Last administered on 10/30/16 08:49; Admin Dose 20 MG; Start 10/26/16 at 09:00 Enoxaparin Sodium 40 mg 40 mg DAILY SC Last administered on 10/30/16 08:55; Admin Dose 40 MG; Start 10/26/16 at 09:00 Azithromycin (Zithromax 500mg/ NS (Pmx)) 250 ml @ 250 mls/hr Q24H IV Last administered on 10/30/16 01:00; Admin Dose 250 MLS/HR; Start 10/25/16 at 23:30 Diagnostic Test (Pha) (Accu-Chek) 1 ea 02 XX Last administered on 10/27/16 02: 14; Admin Dose 1 EA; Start 10/27/16 at 02:00 Miscellaneous Information 1 ea NOTE XX ; Start 10/26/16 at 16:00 Glucose (Glutose) 15 gm Q15M PRN PO DECREASED GLUCOSE; Start 10/26/16 at 16:00 Glucose (Glutose) 22.5 gm Q15M PRN PO DECREASED GLUCOSE; Start 10/26/16 at 16: 00 Dextrose (D50w Syringe) 25 ml Q15M PRN IV DECREASED GLUCOSE; Start 10/26/16 at 16:00 Dextrose (D50w Syringe) 50 ml Q15M PRN IV DECREASED GLUCOSE; Start 10/26/16 at 16:00 Glucagon (Glucagen) 1 mg Q15M PRN IM DECREASED GLUCOSE; Start 10/26/16 at 16:00 Glucose 15 gm 15 gm Q15M PRN BUCCAL DECREASED GLUCOSE; Start 10/26/16 at 16:00 Cefepime HCl 50 ml @ 100 mls/hr Q12 IVPB Last administered on 10/30/16 08:49; Admin Dose 100 MLS/HR; Start 10/26/16 at 21:00 Metronidazole (Flagyl 500 Mg (Pmx)) 100 ml @ 100 mls/hr Q8 IVPB Last administered on 10/30/16 05:06; Admin Dose 100 MLS/HR; Start 10/27/16 at 22:00 Citalopram Hydrobromide (Celexa) 20 mg DAILY PO Last administered on 10/30/16 08:49; Admin Dose 20 MG; Start 10/28/16 at 09:00 Emtricitabine/ Tenofovir (Truvada) 1 tab DAILY PO Last administered on 08:49; Admin Dose 1 TAB; Start 10/27/16 at 18:00 Folic Acid (Folic Acid) 1 mg DAILY PO Last administered on 10/30/16 08:49; Admin Dose 1 MG; Start 10/28/16 at 09:00 Gabapentin (Neurontin) 300 mg TID PO Last administered on 10/30/16 08:49; Admin Dose 300 MG; Start 10/27/16 at 21:00 Miscellaneous Medication (Isentress) 400 mg BID PO Last administered on 08:49; Admin Dose 400 MG; Start 10/27/16 at 21:00 Morphine Sulfate (morphine) 2 mg Q3H PRN IV pain Last administered on 16:29; Admin Dose 2 MG; Start 10/28/16 at 16:30 Acetaminophen/ Hydrocodone Bitart ([place] (5/325)) 1 tab Q4H PRN PO PAIN; Start 10/28/16 at 16:30 MADDIE CUEVAS October 30, 2016 10:48
--- NOTE | 2016-10-30 14:11 | PN ---
DATE: 10/30/2016 INFECTIOUS DISEASE PROGRESS NOTE SUBJECTIVE: No events overnight. Patient is lying comfortably in bed. No fevers. No CBC this morning. BUN 8, creatinine 0.75, sodium 131. MICROBIOLOGY: Stool for C. diff came back positive. ANTIMICROBIALS: Patient is on Flagyl. She is also on cefepime and Zithromax, day #5 today. PHYSICAL EXAMINATION: GENERAL: Obese, well-developed, middle-aged woman who is in no distress. HEENT: Head atraumatic, normocephalic. Sclerae anicteric. Buccal mucosa dry. NECK: Supple, trachea midline. CHEST: Rise symmetrical. Breath sounds diminished to bases. HEART: S1, S2. ABDOMEN: Soft. Bowel tones present. EXTREMITIES: No cyanosis. ASSESSMENT: 1. Clostridium difficile colitis. 2. Pneumonia. 3. Human immunodeficiency virus, on antiretrovirals, pending CD4 count. 4. Liver cirrhosis. 5. Hypertension. 6. Sepsis with fevers, leukocytosis and hypertension and tachycardia on admission. 7. Vancomycin-resistant Enterococcus stool colonization. PLAN: The patient remains stable. We will continue her on current antimicrobials, await for CD4 co unts. Follow chest x-ray. Continue anti-aspiration measures. Dictated By: MARIELOS OMALLEY PLUMBER'S HELPER for KALEB ROWLEY/KATIE Conf#: [id number] DID#: [id number]
[2016-10-30] MEDS: TRIMETHOPRIM/SULFAMETHOX (DS) TAB PO SCH (14:12)
[2016-10-30] MEDS: FLUCONAZOLE 200 MG TAB PO SCH (14:12)
[2016-10-30 14:32] LABS: LYMPHOCYTE - % CD4 (HELPER) 12 % (30-61); LYMPHOCYTE - %CD8 (SUPPRESSOR) 46 % (12-42); LYMPHOCYTE - ABSOLUTE CD4 156 cells/uL (490-1740); LYMPHOCYTE - ABSOLUTE CD8 579 cells/uL (180-1170); LYMPHOCYTE - CD4/CD8 RATIO 0.27 (0.86-5.00)
[2016-10-30] MEDS: AZITHROMYCIN 600 MG TAB PO SCH (15:52)
--- NOTE | 2016-10-30 18:27 | PN ---
Date/Time of Note Date/Time of Note DATE: 10/30/16 TIME: 18:26 Assessment/Plan VTE Prophylaxis VTE Prophylaxis Intervention: LMWH Lines/Catheters IV Catheter Type (from Nrs): Central Line Central line still needed: Yes (IV abx ) Urinary Cath still in place: No Assessment/Plan Assessment/Plan 1. Sepsis Shock 2/2 RUL pneumonia and/or C. difficile -Now off pressor support, IVF and abx - VRE in Stool , ID following -CT chest shows possible indolent granulomatous airway infection, pulmonary consultation continue cefepime, azithromycin and Flagyl 2. Hx of HIV -ID consult appreciated -Resume home meds 3.Hx of Subarachnoid hemorrhage and hydrocephalus - non-acute issue 4. History of stroke - Cont aspirin 5. hx of Hypertension - hold meds given septic shock. Resume as needed Prophylaxis: Lovenox s/p potassium phosphate 15mmmol IV x 1 yesterday, today Po4 normal Subjective 24 Hr Interval Summary Free Text/Dictation no acute events, Na 131, Bp stable, afebrile Exam/Review of Systems Vital Signs Vitals Vital Signs Date Time Temp Pulse Resp B/P Pulse Ox O2 Delivery O2 Flow Rate FiO2 10/30/16 16:32 98.1 82 20 117/80 96 10/27/16 20:20 Room Air 10/27/16 17:55 2.0 Intake and Output 10/29/16 10/29/16 10/30/16 15:00 23:00 07:00 Intake Total 800 ml 520 ml Output Total 400 ml Balance 400 ml 520 ml Exam Constitutional: alert Respiratory: clear to auscultation Cardiovascular: regular rate and rhythm Gastrointestinal: soft, No distended Musculoskeletal: nl extremities to inspection Results Result Diagram: 10/29/16 0610 10/30/16 0735 Results 24 hrs Laboratory Tests Test 10/29/16 21:01 10/30/16 07:35 10/30/16 07:49 10/30/16 11:42 Bedside Glucose 75 74 77 Prothrombin Time 17.1 H Prothrombin Time Ratio 1.3 INR International Normalized Ratio 1.39 Activated Partial Thromboplast Time 35.4 H Sodium Level 131 L Potassium Level 3.6 Chloride Level 108 Carbon Dioxide Level 19 L Anion Gap 8 Blood Urea Nitrogen 8 Creatinine 0.75 Glucose Level 70 Calcium Level 7.4 L Phosphorus Level 2.7 Magnesium Level 1.8 Test 10/30/16 17:20 Bedside Glucose 74 Medications Medications Current Medications Ondansetron HCl (Zofran Inj) 4 mg Q6H PRN IV NAUSEA AND/OR VOMITING; Start at 23:30 Lorazepam (Ativan) 1 mg Q2H PRN IV ANXIETY; Start 10/25/16 at 23:30 Magnesium Hydroxide (Milk Of Mag) 30 ml DAILY PRN PO CONSTIPATION; Start at 23:30 Famotidine (Pepcid) 20 mg DAILY PO Last administered on 10/30/16 08:49; Admin Dose 20 MG; Start 10/26/16 at 09:00 Enoxaparin Sodium (Lovenox) 40 mg DAILY SC Last administered on 10/30/16 08:55 ; Admin Dose 40 MG; Start 10/26/16 at 09:00 Diagnostic Test (Pha) (Accu-Chek) 1 ea 02 XX Last administered on 10/27/16 02: 14; Admin Dose 1 EA; Start 10/27/16 at 02:00 Miscellaneous Information 1 ea NOTE XX ; Start 10/26/16 at 16:00 Glucose (Glutose) 15 gm Q15M PRN PO DECREASED GLUCOSE; Start 10/26/16 at 16:00 Glucose (Glutose) 22.5 gm Q15M PRN PO DECREASED GLUCOSE; Start 10/26/16 at 16: 00 Dextrose (D50w Syringe) 25 ml Q15M PRN IV DECREASED GLUCOSE; Start 10/26/16 at 16:00 Dextrose (D50w Syringe) 50 ml Q15M PRN IV DECREASED GLUCOSE; Start 10/26/16 at 16:00 Glucagon (Glucagen) 1 mg Q15M PRN IM DECREASED GLUCOSE; Start 10/26/16 at 16:00 Glucose 15 gm 15 gm Q15M PRN BUCCAL DECREASED GLUCOSE; Start 10/26/16 at 16:00 Cefepime HCl 50 ml @ 100 mls/hr Q12 IVPB Last administered on 10/30/16 08:49; Admin Dose 100 MLS/HR; Start 10/26/16 at 21:00 Metronidazole (Flagyl 500 Mg (Pmx)) 100 ml @ 100 mls/hr Q8 IVPB Last administered on 10/30/16 13:41; Admin Dose 100 MLS/HR; Start 10/27/16 at 22:00 Citalopram Hydrobromide (Celexa) 20 mg DAILY PO Last administered on 10/30/16 08:49; Admin Dose 20 MG; Start 10/28/16 at 09:00 Emtricitabine/ Tenofovir (Truvada) 1 tab DAILY PO Last administered on 08:49; Admin Dose 1 TAB; Start 10/27/16 at 18:00 Folic Acid (Folic Acid) 1 mg DAILY PO Last administered on 10/30/16 08:49; Admin Dose 1 MG; Start 10/28/16 at 09:00 Gabapentin (Neurontin) 300 mg TID PO Last administered on 10/30/16 08:49; Admin Dose 300 MG; Start 10/27/16 at 21:00 Miscellaneous Medication (Isentress) 400 mg BID PO Last administered on 08:49; Admin Dose 400 MG; Start 10/27/16 at 21:00 Morphine Sulfate (morphine) 2 mg Q3H PRN IV pain Last administered on 16:29; Admin Dose 2 MG; Start 10/28/16 at 16:30 Acetaminophen/ Hydrocodone Bitart ([place] (5/325)) 1 tab Q4H PRN PO PAIN Last administered on 10/30/16 17:25; Admin Dose 1 TAB; Start 10/28/16 at 16:30 Trimethoprim/ Sulfamethoxazole (Bactrim (Ds)) 1 tab DAILY PO Last administered on 10/30/16 14:12; Admin Dose 1 TAB; Start 10/30/16 at 14:00 Azithromycin (Zithromax) 1,200 mg Q7D PO Last administered on 10/30/16 15:52; Admin Dose 1,200 MG; Start 10/30/16 at 15:00 Fluconazole (Diflucan) 200 mg DAILY PO Last administered on 10/30/16 14:12; Admin Dose 200 MG; Start 10/30/16 at 14:00 Acyclovir (Zovirax) 400 mg BID PO ; Start 10/30/16 at 21:00 PAULETTE JONES MD October 30, 2016 18:27
[2016-10-30] MEDS: ACYCLOVIR 400 MG TAB PO SCH (21:29)
[2016-10-31] MEDS: ACCUCHECK AT 2AM (Patients on SS coverage) XX SCH (02:00)
[2016-10-31 04:18] VITALS: BP 113/73; RESP 18
[2016-10-31] MEDS: metroNIDAZOLE 500 MG/NS (PMX) 100 ML IVPB SCH ×3 (05:45→21:35)
[2016-10-31 07:19] VITALS: BP 99/61; RESP 18
[2016-10-31] MEDS: INSULIN ASPART [NOVOLOG] 3 ML PEN SC SCH ×4 (07:44→20:21)
[2016-10-31 08:18] LABS: POTASSIUM 3.7 mmol/L (3.5-5.1)
[2016-10-31 08:20] LABS: CREATININE 0.8 mg/dl (0.44-1.00)
[2016-10-31 08:21] LABS: CALCIUM 7.6 mg/dl (8.4-10.2)
[2016-10-31] MEDS: EMTRICITABINE/TENOFOVIR TAB PO SCH (09:11)
[2016-10-31] MEDS: ACYCLOVIR 400 MG TAB PO SCH ×2 (09:11→20:20)
[2016-10-31] MEDS: FLUCONAZOLE 200 MG TAB PO SCH (09:11)
[2016-10-31] MEDS: RALTEGRAVIR 400 MG TAB PO SCH ×2 (09:11→20:20)
[2016-10-31] MEDS: CEFEPIME 1GM/50 ML (PMX) 50 ML IVPB SCH ×2 (09:11→20:20)
[2016-10-31] MEDS: FAMOTIDINE 20 MG TAB PO SCH (09:11)
[2016-10-31] MEDS: TRIMETHOPRIM/SULFAMETHOX (DS) TAB PO SCH (09:11)
[2016-10-31] MEDS: CITALOPRAM 20 MG TAB PO SCH (09:11)
[2016-10-31] MEDS: FOLIC ACID 1 MG TAB PO SCH (09:15)
[2016-10-31] MEDS: GABAPENTIN 300 MG CAP PO SCH ×4 (09:15→20:20)
[2016-10-31] MEDS: ENOXAPARIN 40 MG/0.4 ML SYG SC SCH (09:23)
--- NOTE | 2016-10-31 10:42 | CONS ---
Date/Time of Note Date/Time of Note DATE: 10/31/16 TIME: 10:39 Assessment/Plan Assessment/Plan Additional Assessment/Plan Assessment recommendations; 1. Patient admitted for right upper lobe pneumonia with evidence of prior fibrotic changes in that area. 2. HIV positive with AIDS syndrome. 3. History of gastritis. 4. History of CVA, subarachnoid hemorrhage and hydrocephalus. Continue current treatment. Will obtain a chest x-ray. Consultation Date/Type/Reason Admit Date/Time Oct 25, 2016 at 21:43 Initial Consult Date 10/29/16 Type of Consultation: pulmonary 24 HR Interval Summary Free Text/Dictation Patient condition is stable. Denies any shortness of breath, fever chills. Denies any dysphagia. Denies any wheezing, sputum production. General exam; elderly lady, awake alert currently in no distress. Exam/Review of Systems Vital Signs Vitals Vital Signs Date Time Temp Pulse Resp B/P Pulse Ox O2 Delivery O2 Flow Rate FiO2 10/31/16 07:19 98.3 89 18 99/61 96 10/27/16 20:20 Room Air 10/27/16 17:55 2.0 Intake and Output 10/30/16 10/30/16 10/31/16 14:59 22:59 06:59 Intake Total 50 ml 220 ml 250 ml Balance 50 ml 220 ml 250 ml Exam HEENT examination; supple neck, no JVD. No lymphadenopathy. Midline trachea. No thyromegaly. There is no oral thrush. Pupils are equal and reactive to light bilaterally. No neck masses. Chest examination; clear to auscultation. S1-S2 audible, no murmurs. Regular rhythm. Abdomen examination; soft, nontender, no organomegaly. Bowel sounds audible. Extremity examination; no peripheral edema. 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 Results Result Diagram: 10/29/16 0610 10/31/16 0715 Results 24 hrs Laboratory Tests Test 10/30/16 11:42 10/30/16 17:20 10/30/16 21:27 10/30/16 22:13 Bedside Glucose 77 74 68 L 71 Test 10/31/16 04:14 10/31/16 07:15 10/31/16 07:32 Bedside Glucose 76 74 Sodium Level 134 L Potassium Level 3.7 Chloride Level 106 Carbon Dioxide Level 19 L Anion Gap 13 Blood Urea Nitrogen 12 Creatinine 0.80 Glucose Level 71 Calcium Level 7.6 L Medications Medications Current Medications Ondansetron HCl (Zofran Inj) 4 mg Q6H PRN IV NAUSEA AND/OR VOMITING; Start at 23:30 Magnesium Hydroxide (Milk Of Mag) 30 ml DAILY PRN PO CONSTIPATION; Start at 23:30 Famotidine (Pepcid) 20 mg DAILY PO Last administered on 10/31/16 09:11; Admin Dose 20 MG; Start 10/26/16 at 09:00 Enoxaparin Sodium (Lovenox) 40 mg DAILY SC Last administered on 10/31/16 09:23 ; Admin Dose 40 MG; Start 10/26/16 at 09:00 Diagnostic Test (Pha) (Accu-Chek) 1 ea 02 XX Last administered on 10/31/16 02: 00; Admin Dose 1 EA; Start 10/27/16 at 02:00 Miscellaneous Information 1 ea NOTE XX ; Start 10/26/16 at 16:00 Glucose (Glutose) 15 gm Q15M PRN PO DECREASED GLUCOSE; Start 10/26/16 at 16:00 Glucose (Glutose) 22.5 gm Q15M PRN PO DECREASED GLUCOSE; Start 10/26/16 at 16: 00 Dextrose (D50w Syringe) 25 ml Q15M PRN IV DECREASED GLUCOSE; Start 10/26/16 at 16:00 Dextrose (D50w Syringe) 50 ml Q15M PRN IV DECREASED GLUCOSE; Start 10/26/16 at 16:00 Glucagon (Glucagen) 1 mg Q15M PRN IM DECREASED GLUCOSE; Start 10/26/16 at 16:00 Glucose 15 gm 15 gm Q15M PRN BUCCAL DECREASED GLUCOSE; Start 10/26/16 at 16:00 Cefepime HCl 50 ml @ 100 mls/hr Q12 IVPB Last administered on 10/31/16 09:11; Admin Dose 100 MLS/HR; Start 10/26/16 at 21:00 Metronidazole (Flagyl 500 Mg (Pmx)) 100 ml @ 100 mls/hr Q8 IVPB Last administered on 10/31/16 05:45; Admin Dose 100 MLS/HR; Start 10/27/16 at 22:00 Citalopram Hydrobromide (Celexa) 20 mg DAILY PO Last administered on 10/31/16 09:11; Admin Dose 20 MG; Start 10/28/16 at 09:00 Emtricitabine/ Tenofovir (Truvada) 1 tab DAILY PO Last administered on 09:11; Admin Dose 1 TAB; Start 10/27/16 at 18:00 Folic Acid (Folic Acid) 1 mg DAILY PO Last administered on 10/31/16 09:15; Admin Dose 1 MG; Start 10/28/16 at 09:00 Gabapentin (Neurontin) 300 mg TID PO Last administered on 10/31/16 09:15; Admin Dose 300 MG; Start 10/27/16 at 21:00 Miscellaneous Medication (Isentress) 400 mg BID PO Last administered on 09:11; Admin Dose 400 MG; Start 10/27/16 at 21:00 Acetaminophen/ Hydrocodone Bitart ([place] (5/325)) 1 tab Q4H PRN PO PAIN Last administered on 10/30/16 17:25; Admin Dose 1 TAB; Start 10/28/16 at 16:30 Trimethoprim/ Sulfamethoxazole (Bactrim (Ds)) 1 tab DAILY PO Last administered on 10/31/16 09:11; Admin Dose 1 TAB; Start 10/30/16 at 14:00 Azithromycin (Zithromax) 1,200 mg Q7D PO Last administered on 10/30/16 15:52; Admin Dose 1,200 MG; Start 10/30/16 at 15:00 Fluconazole (Diflucan) 200 mg DAILY PO Last administered on 10/31/16 09:11; Admin Dose 200 MG; Start 10/30/16 at 14:00 Acyclovir 400 mg 400 mg BID PO Last administered on 10/31/16 09:11; Admin Dose 400 MG; Start 10/30/16 at 21:00 Potassium Chloride/Dextrose/ Sod Cl (D5-1/2ns + KCl 20 Meq) 1,000 ml @ 70 mls/ hr [id number] IV ; Start 10/31/16 at 10:30; Status MADDIE HATFIELD October 31, 2016 10:41
[2016-10-31] MEDS: D5W-0.45 NACL + KCL 20 MEQ 1,000 ML IV SCH (10:58)
[2016-10-31 11:58] VITALS: BP 108/58; RESP 18
--- NOTE | 2016-10-31 13:29 | PN ---
DATE: 10/31/2016 INFECTIOUS DISEASE PROGRESS NOTE SUBJECTIVE: Patient remains unchanged, still with profuse diarrhea. Rectal tube was placed. She h as poor appetite and not eating well, no vomiting. Temperature 98.6, no fevers. No CBC this morning. BUN 12, creatinine 0.80, CD4 count on admission was 74, repeat from October 29 was 156. ANTIMICROBIALS: The patient is on oral Zithromax 1200 mg weekly, empiric acyclovir, Bactrim-DS opal y for PCP prophylaxis, oral fluconazole, Flagyl. She is on Truvada, Isentress and cefepime. PHYSICAL EXAMINATION: GENERAL: An obese, well-developed, middle-aged woman who is in no distress. HEENT: Head atraumatic, normocephalic. Sclerae anicteric. Buccal mucosa dry. NECK: Supple. CHEST: Rise symmetrical. Breath sounds diminished to bases. HEART: S1, S2. ABDOMEN: Soft. Bowel tones hypoactive. EXTREMITIES: Without cyanosis. ASSESSMENT: 1. Sepsis. 2. Clostridium difficile colitis. 3. Pneumonia. 4. Acquired immunodeficiency syndrome with CD4 count of 156. On admission was 74, likely secondary to sepsis. 5. VRE stool colonization. 6. Liver cirrhosis. PLAN: The patient remains clinically stable. We are going to add oral vancomycin and Questran to t he regimen. Continue other antibiotics, supportive care and follow recommendations of consultants. Dictated By: MARIELOS OMALLEY TEST CLERK for KALEB LEE MD NI/NTS Conf#: [id number] DID#: [id number]
--- NOTE | 2016-10-31 15:13 | PN ---
Date/Time of Note Date/Time of Note DATE: 10/31/16 TIME: 15:10 Assessment/Plan VTE Prophylaxis VTE Prophylaxis Intervention: LMWH Lines/Catheters IV Catheter Type (from Nrs): Central Line Central line still needed: Yes (Diffiuclt IV access ) Urinary Cath still in place: No Assessment/Plan Assessment/Plan 1. Sepsis Shock 2/2 RUL pneumonia and/or C. difficile -Now off pressor support, IVF and abx - VRE in Stool , ID following -CT chest shows possible indolent granulomatous airway infection, pulmonary consultation continue cefepime, azithromycin and Flagyl 2. Hx of HIV- resumed home meds, ID following 3.Hx of Subarachnoid hemorrhage and hydrocephalus - non-acute issue 4. History of stroke - Cont aspirin 5. hx of Hypertension - hold meds given septic shock. Resume as needed 6. Cl difficle diarrhea, VRE in stool On IV abx as per ID Place rectal tube for continuous diarrhea, start IVF D51/2 NS Prophylaxis: Lovenox Subjective 24 Hr Interval Summary Free Text/Dictation pt continues to have diarrhea, 20BM/day yesterday, BP borderline low Exam/Review of Systems Vital Signs Vitals Vital Signs Date Time Temp Pulse Resp B/P Pulse Ox O2 Delivery O2 Flow Rate FiO2 10/31/16 11:58 98.6 88 18 108/58 96 10/27/16 20:20 Room Air 10/27/16 17:55 2.0 Intake and Output 10/30/16 10/30/16 10/31/16 15:00 23:00 07:00 Intake Total 50 ml 220 ml 250 ml Balance 50 ml 220 ml 250 ml Exam Constitutional: alert Respiratory: clear to auscultation Cardiovascular: regular rate and rhythm Gastrointestinal: soft, No distended Musculoskeletal: nl extremities to inspection Results Result Diagram: 10/29/16 0610 10/31/16 0715 Results 24 hrs Laboratory Tests Test 10/30/16 17:20 10/30/16 21:27 10/30/16 22:13 10/31/16 04:14 Bedside Glucose 74 68 L 71 76 Test 10/31/16 07:15 10/31/16 07:32 10/31/16 12:14 Sodium Level 134 L Potassium Level 3.7 Chloride Level 106 Carbon Dioxide Level 19 L Anion Gap 13 Blood Urea Nitrogen 12 Creatinine 0.80 Glucose Level 71 Calcium Level 7.6 L Bedside Glucose 74 86 Medications Medications Current Medications Ondansetron HCl (Zofran Inj) 4 mg Q6H PRN IV NAUSEA AND/OR VOMITING; Start at 23:30 Magnesium Hydroxide (Milk Of Mag) 30 ml DAILY PRN PO CONSTIPATION; Start at 23:30 Famotidine (Pepcid) 20 mg DAILY PO Last administered on 10/31/16 09:11; Admin Dose 20 MG; Start 10/26/16 at 09:00 Enoxaparin Sodium (Lovenox) 40 mg DAILY SC Last administered on 10/31/16 09:23 ; Admin Dose 40 MG; Start 10/26/16 at 09:00 Diagnostic Test (Pha) (Accu-Chek) 1 ea 02 XX Last administered on 10/31/16 02: 00; Admin Dose 1 EA; Start 10/27/16 at 02:00 Miscellaneous Information 1 ea NOTE XX ; Start 10/26/16 at 16:00 Glucose (Glutose) 15 gm Q15M PRN PO DECREASED GLUCOSE; Start 10/26/16 at 16:00 Glucose (Glutose) 22.5 gm Q15M PRN PO DECREASED GLUCOSE; Start 10/26/16 at 16: 00 Dextrose (D50w Syringe) 25 ml Q15M PRN IV DECREASED GLUCOSE; Start 10/26/16 at 16:00 Dextrose (D50w Syringe) 50 ml Q15M PRN IV DECREASED GLUCOSE; Start 10/26/16 at 16:00 Glucagon (Glucagen) 1 mg Q15M PRN IM DECREASED GLUCOSE; Start 10/26/16 at 16:00 Glucose 15 gm 15 gm Q15M PRN BUCCAL DECREASED GLUCOSE; Start 10/26/16 at 16:00 Cefepime HCl 50 ml @ 100 mls/hr Q12 IVPB Last administered on 10/31/16 09:11; Admin Dose 100 MLS/HR; Start 10/26/16 at 21:00 Metronidazole (Flagyl 500 Mg (Pmx)) 100 ml @ 100 mls/hr Q8 IVPB Last administered on 10/31/16 13:05; Admin Dose 100 MLS/HR; Start 10/27/16 at 22:00 Citalopram Hydrobromide (Celexa) 20 mg DAILY PO Last administered on 10/31/16 09:11; Admin Dose 20 MG; Start 10/28/16 at 09:00 Emtricitabine/ Tenofovir (Truvada) 1 tab DAILY PO Last administered on 09:11; Admin Dose 1 TAB; Start 10/27/16 at 18:00 Folic Acid (Folic Acid) 1 mg DAILY PO Last administered on 10/31/16 09:15; Admin Dose 1 MG; Start 10/28/16 at 09:00 Gabapentin (Neurontin) 300 mg TID PO Last administered on 10/31/16 13:05; Admin Dose 300 MG; Start 10/27/16 at 21:00 Miscellaneous Medication (Isentress) 400 mg BID PO Last administered on 09:11; Admin Dose 400 MG; Start 10/27/16 at 21:00 Acetaminophen/ Hydrocodone Bitart ([place] (5/325)) 1 tab Q4H PRN PO PAIN Last administered on 10/30/16 17:25; Admin Dose 1 TAB; Start 10/28/16 at 16:30 Trimethoprim/ Sulfamethoxazole (Bactrim (Ds)) 1 tab DAILY PO Last administered on 10/31/16 09:11; Admin Dose 1 TAB; Start 10/30/16 at 14:00 Azithromycin (Zithromax) 1,200 mg Q7D PO Last administered on 10/30/16 15:52; Admin Dose 1,200 MG; Start 10/30/16 at 15:00 Fluconazole (Diflucan) 200 mg DAILY PO Last administered on 10/31/16 09:11; Admin Dose 200 MG; Start 10/30/16 at 14:00 Acyclovir 400 mg 400 mg BID PO Last administered on 10/31/16 09:11; Admin Dose 400 MG; Start 10/30/16 at 21:00 Potassium Chloride/Dextrose/ Sod Cl (D5-1/2ns + KCl 20 Meq) 1,000 ml @ 70 mls/ hr [id number] IV Last administered on 10/31/16 10:58; Admin Dose 70 MLS/HR; Start 10/31/16 at 10:30 PAULETTE JONES MD October 31, 2016 15:13
[2016-10-31 15:18] VITALS: BP 113/74; RESP 18
[2016-10-31 19:40] VITALS: BP 114/76; RESP 20
[2016-10-31 22:31] VITALS: BP 115/72; RESP 24
[2016-10-31 23:46] LABS: CRYPTOCOCCAL ANTIGEN - SOURCE Serum
[2016-11-01] MEDS: D5W-0.45 NACL + KCL 20 MEQ 1,000 ML IV SCH ×4 (00:48→22:35)
[2016-11-01] MEDS: ACCUCHECK AT 2AM (Patients on SS coverage) XX SCH (02:00)
[2016-11-01] MEDS: metroNIDAZOLE 500 MG/NS (PMX) 100 ML IVPB SCH ×3 (05:37→23:07)
[2016-11-01 05:41] LABS: ADD SCAN DIFF NO
[2016-11-01 05:46] LABS: BASOPHILS % 0.2 % (0.0-2.0); EOSINOPHILS % 0.4 % (0.0-7.0); HEMATOCRIT 35.5 % (37.0-47.0); HEMOGLOBIN 12.3 g/dl (12.0-16.0); LYMPHOCYTES # 1.6 10^3/ul (0.8-2.9); LYMPHOCYTES % 19.3 % (15.0-51.0); MEAN CORPUSCULAR HEMOGLOBIN 31.9 pg (29.0-33.0); MEAN CORPUSCULAR HGB CONC 34.6 g/dl (32.0-37.0); MEAN CORPUSCULAR VOLUME 92.2 fl (82.0-101.0); MEAN PLATELET VOLUME 8.8 fl (7.4-10.4); MONOCYTE # 0.4 10^3/ul (0.3-0.9); MONOCYTES % 5.2 % (0.0-11.0); NEUTROPHILS % 72.5 % (39.0-77.0); PLATELET COUNT 267 10^3/UL (140-415); RED BLOOD COUNT 3.85 10^6/ul (4.20-5.40); RED CELL DISTRIBUTION WIDTH 15.9 % (11.5-14.5); WHITE BLOOD COUNT 8.3 10^3/ul (4.8-10.8)
[2016-11-01 05:59] LABS: POTASSIUM 3.7 mmol/L (3.5-5.1)
[2016-11-01 06:02] LABS: CREATININE 0.86 mg/dl (0.44-1.00)
[2016-11-01 06:03] LABS: CALCIUM 7.4 mg/dl (8.4-10.2)
[2016-11-01 07:15] VITALS: BP 92/56; RESP 18
[2016-11-01] MEDS: INSULIN ASPART [NOVOLOG] 3 ML PEN SC SCH ×4 (08:15→21:00)
[2016-11-01] MEDS: CEFEPIME 1GM/50 ML (PMX) 50 ML IVPB SCH ×2 (09:12→21:29)
[2016-11-01 09:42] LABS: PHOSPHORUS 2.9 mg/dl (2.5-4.9)
[2016-11-01 09:43] LABS: MAGNESIUM 1.8 mg/dl (1.7-2.5)
[2016-11-01] MEDS: ENOXAPARIN 40 MG/0.4 ML SYG SC SCH (09:49)
[2016-11-01] MEDS: GABAPENTIN 300 MG CAP PO SCH ×3 (09:50→21:29)
[2016-11-01] MEDS: ACYCLOVIR 400 MG TAB PO SCH (09:50)
[2016-11-01] MEDS: FAMOTIDINE 20 MG TAB PO SCH (09:50)
[2016-11-01] MEDS: FOLIC ACID 1 MG TAB PO SCH (09:50)
[2016-11-01] MEDS: CITALOPRAM 20 MG TAB PO SCH (09:50)
[2016-11-01] MEDS: RALTEGRAVIR 400 MG TAB PO SCH ×2 (09:51→21:29)
[2016-11-01] MEDS: TRIMETHOPRIM/SULFAMETHOX (DS) TAB PO SCH (09:51)
[2016-11-01] MEDS: EMTRICITABINE/TENOFOVIR TAB PO SCH (09:51)
[2016-11-01] MEDS: FLUCONAZOLE 200 MG TAB PO SCH (09:51)
--- NOTE | 2016-11-01 11:40 | CONS ---
Date/Time of Note Date/Time of Note DATE: 11/01/16 TIME: 11:38 Assessment/Plan Assessment/Plan Additional Assessment/Plan Assessment recommendations; 1. Patient admitted for right upper lobe pneumonia with some element of fibrotic changes in the right upper lobe. 2. HIV positive with AIDS syndrome. 3. C. difficile colitis. 4. History of subarachnoid hemorrhage and craniotomy with hydrocephalus. Continue current treatment. Awaiting chest x-ray. Consultation Date/Type/Reason Admit Date/Time Oct 25, 2016 at 21:43 Initial Consult Date 10/29/16 Type of Consultation: pulmonary 24 HR Interval Summary Free Text/Dictation Patient condition is stable. Denies any shortness of breath, cough, fever chills or sputum production. Still complains of diarrhea. General exam; elderly woman, awake alert currently in no distress. Exam/Review of Systems Vital Signs Vitals Vital Signs Date Time Temp Pulse Resp B/P Pulse Ox O2 Delivery O2 Flow Rate FiO2 11/01/16 07:15 98.9 93 18 92/56 91 Intake and Output 10/31/16 10/31/16 11/01/16 15:00 23:00 07:00 Intake Total 50 ml 100 ml 1100 ml Output Total 200 ml Balance 50 ml 100 ml 900 ml Exam HEENT examination; supple neck, no JVD. No lymphadenopathy. Midline trachea. No thyromegaly. Pharynx is clear. No thrush. Chest examination; to auscultation. S1-S2 audible, no murmurs. Regular rhythm. Abdomen examination; soft, nondistended. No organomegaly. Bowel sounds audible. Extremity examination; no peripheral edema. Pulses 1+ bilaterally. CHIEF GAUGER examination; no focal deficit. Results Result Diagram: 11/01/16 0515 11/01/16 0515 Results 24 hrs Laboratory Tests Test 10/31/16 12:14 10/31/16 17:39 10/31/16 19:49 11/01/16 05:15 Bedside Glucose 86 89 110 White Blood Count 8.3 Red Blood Count 3.85 L Hemoglobin 12.3 Hematocrit 35.5 L Mean Corpuscular Volume 92.2 Mean Corpuscular Hemoglobin 31.9 Mean Corpuscular Hemoglobin Concent 34.6 Red Cell Distribution Width 15.9 H Platelet Count 267 Mean Platelet Volume 8.8 Neutrophils % 72.5 Lymphocytes % 19.3 Monocytes % 5.2 Eosinophils % 0.4 Basophils % 0.2 Nucleated Red Blood Cells % 0.0 Neutrophils # 6.0 Lymphocytes # 1.6 Monocytes # 0.4 Eosinophils # 0.0 Basophils # 0.0 Nucleated Red Blood Cells # 0.0 Sodium Level 129 L Potassium Level 3.7 Chloride Level 102 Carbon Dioxide Level 20 L Anion Gap 11 Blood Urea Nitrogen 11 Creatinine 0.86 Glucose Level 95 Calcium Level 7.4 L Phosphorus Level 2.9 Magnesium Level 1.8 Test 11/01/16 09:14 Bedside Glucose 99 Medications Medications Current Medications Ondansetron HCl (Zofran Inj) 4 mg Q6H PRN IV NAUSEA AND/OR VOMITING; Start at 23:30 Magnesium Hydroxide (Milk Of Mag) 30 ml DAILY PRN PO CONSTIPATION; Start at 23:30 Famotidine (Pepcid) 20 mg DAILY PO Last administered on 11/01/16 09:50; Admin Dose 20 MG; Start 10/26/16 at 09:00 Enoxaparin Sodium (Lovenox) 40 mg DAILY SC Last administered on 11/01/16 09:49 ; Admin Dose 40 MG; Start 10/26/16 at 09:00 Diagnostic Test (Pha) (Accu-Chek) 1 ea 02 XX Last administered on 10/31/16 02: 00; Admin Dose 1 EA; Start 10/27/16 at 02:00 Miscellaneous Information 1 ea NOTE XX ; Start 10/26/16 at 16:00 Glucose (Glutose) 15 gm Q15M PRN PO DECREASED GLUCOSE; Start 10/26/16 at 16:00 Glucose (Glutose) 22.5 gm Q15M PRN PO DECREASED GLUCOSE; Start 10/26/16 at 16: 00 Dextrose (D50w Syringe) 25 ml Q15M PRN IV DECREASED GLUCOSE; Start 10/26/16 at 16:00 Dextrose (D50w Syringe) 50 ml Q15M PRN IV DECREASED GLUCOSE; Start 10/26/16 at 16:00 Glucagon (Glucagen) 1 mg Q15M PRN IM DECREASED GLUCOSE; Start 10/26/16 at 16:00 Glucose 15 gm 15 gm Q15M PRN BUCCAL DECREASED GLUCOSE; Start 10/26/16 at 16:00 Cefepime HCl 50 ml @ 100 mls/hr Q12 IVPB Last administered on 11/01/16 09:12; Admin Dose 100 MLS/HR; Start 10/26/16 at 21:00 Metronidazole (Flagyl 500 Mg (Pmx)) 100 ml @ 100 mls/hr Q8 IVPB Last administered on 11/01/16 05:37; Admin Dose 100 MLS/HR; Start 10/27/16 at 22:00 Citalopram Hydrobromide (Celexa) 20 mg DAILY PO Last administered on 11/01/16 09:50; Admin Dose 20 MG; Start 10/28/16 at 09:00 Emtricitabine/ Tenofovir (Truvada) 1 tab DAILY PO Last administered on 09:51; Admin Dose 1 TAB; Start 10/27/16 at 18:00 Folic Acid (Folic Acid) 1 mg DAILY PO Last administered on 11/01/16 09:50; Admin Dose 1 MG; Start 10/28/16 at 09:00 Gabapentin (Neurontin) 300 mg TID PO Last administered on 11/01/16 09:50; Admin Dose 300 MG; Start 10/27/16 at 21:00 Miscellaneous Medication (Isentress) 400 mg BID PO Last administered on 09:51; Admin Dose 400 MG; Start 10/27/16 at 21:00 Acetaminophen/ Hydrocodone Bitart ([place] (5/325)) 1 tab Q4H PRN PO PAIN Last administered on 10/30/16 17:25; Admin Dose 1 TAB; Start 10/28/16 at 16:30 Trimethoprim/ Sulfamethoxazole (Bactrim (Ds)) 1 tab DAILY PO Last administered on 11/01/16 09:51; Admin Dose 1 TAB; Start 10/30/16 at 14:00 Azithromycin (Zithromax) 1,200 mg Q7D PO Last administered on 10/30/16 15:52; Admin Dose 1,200 MG; Start 10/30/16 at 15:00 Fluconazole (Diflucan) 200 mg DAILY PO Last administered on 11/01/16 09:51; Admin Dose 200 MG; Start 10/30/16 at 14:00 Acyclovir 400 mg 400 mg BID PO Last administered on 11/01/16 09:50; Admin Dose 400 MG; Start 10/30/16 at 21:00 Potassium Chloride/Dextrose/ Sod Cl (D5-1/2ns + KCl 20 Meq) 1,000 ml @ 70 mls/ hr [id number] IV Last administered on 11/01/16t 05:38; Admin Dose 70 MLS/HR; Start 10/31/16 at 10:30 MADDIE CUEVAS November 01, 2016 11:40
--- NOTE | 2016-11-01 12:24 | PN ---
DATE: 11/01/2016 SUBJECTIVE: No acute changes. The patient is alert, sitting comfortably in bed. No fevers. No ev ents. LABORATORIES: WBC today 8.3, no shift, no bands. BUN 11, creatinine 0.86. ANTIMICROBIALS: 1. Acyclovir 400 b.i.d. 2. Zithromax 1200 mg every 7 days. 3. Bactrim 1 tablet daily. 4. Fluconazole 200 mg daily. 5. Flagyl 500 mg IV q.8h. 6. Cefepime day #7. 7. Vancomycin p.o. PHYSICAL EXAMINATION: GENERAL: This is a well-developed, fragile, middle-aged woman who is awake, in no distress. HEENT: Head atraumatic, normocephalic. Sclerae anicteric. Buccal mucosa dry. NECK: Supple, trachea midline. CHEST: Rise symmetrical. Breath sounds diminished to bases. HEART: S1, S2. ABDOMEN: Soft, bowel tones present. EXTREMITIES: Without cyanosis. ASSESSMENT: 1. Pneumonia. 2. Clostridium difficile colitis. 3. Acquired immunodeficiency syndrome with CD4 count of 156. 4. Liver cirrhosis. 5. Vancomycin-resistant Enterococcus stool colonization. PLAN: 1. The patient is clinically improving. We will continue her on current antimicrobials. We will c hange Acyclovir to 400 mg tablet daily and change Diflucan to 100 mg daily. Continue all other anti biotics. 2. Follow repeat chest x-ray and follow pulmonary recommendations. Dictated By: MARIELOS OMALLEY PRINTMAKER for KALEB ROWLEY/KATIE Conf#: [id number] DID#: [id number]
[2016-11-01] MEDS: CHOLESTYRAMINE 4 GM PACKET PO SCH (12:33)
--- NOTE | 2016-11-01 13:22 | RADRPT ---
PROCEDURE: XR Chest. CLINICAL INDICATION: Shortness of breath. TECHNIQUE: Single frontal view. COMPARISON: 10/25/2016. FINDINGS: There is right perihilar atelectasis and left basilar atelectasis or pneumonia, worse than seen prev iously. The lungs are otherwise clear. The heart size is normal. There is no pleural effusion. There is no pneumothorax. IMPRESSION: 1. Worse appearance of the lungs. 2. No other new abnormality. RPTAT: QQ .Alfonso Nunez MD, MD Date Time Electronically viewed and signed by .Alfonso Nunez MD, MD on 11/01/2016 13:21 .R/
[2016-11-01] MEDS: VANCOMYCIN HCL 250 MG/5ML POSYG PO SCH ×2 (14:18→18:32)
[2016-11-01] MEDS: CIPROFLOXACIN 0.3% 2.5 ML OPH BOTH EYES SCH ×2 (14:22→21:29)
--- NOTE | 2016-11-01 18:18 | PN ---
Date/Time of Note Date/Time of Note DATE: 11/01/16 TIME: 18:16 Assessment/Plan VTE Prophylaxis VTE Prophylaxis Intervention: LMWH Lines/Catheters IV Catheter Type (from Nrs): Central Line Central line still needed: Yes (IV access ) Urinary Cath still in place: No Assessment/Plan Assessment/Plan 1. Sepsis Shock 2/2 RUL pneumonia and/or C. difficile -Now off pressor support, IVF and abx - VRE in Stool , ID following -CT chest shows possible indolent granulomatous airway infection, pulmonary consultation continue cefepime, azithromycin and Flagyl 2. Hx of HIV- resumed home meds, ID following 3.Hx of Subarachnoid hemorrhage and hydrocephalus - non-acute issue 4. History of stroke - Cont aspirin 5. hx of Hypertension 6. Cl difficle diarrhea, VRE in stool On IV abx as per ID Place rectal tube for continuous diarrhea, start IVF D51/2 NS Prophylaxis: Lovenox PT evaluation and treatment Subjective 24 Hr Interval Summary Free Text/Dictation pain improving, rectal tube in for diarrhea Exam/Review of Systems Vital Signs Vitals Vital Signs Date Time Temp Pulse Resp B/P Pulse Ox O2 Delivery O2 Flow Rate FiO2 11/01/16 07:15 98.9 93 18 92/56 91 Intake and Output 10/31/16 10/31/16 11/01/16 15:00 23:00 07:00 Intake Total 50 ml 100 ml 1100 ml Output Total 200 ml Balance 50 ml 100 ml 900 ml Exam GENERAL: This is a well-developed, fragile, middle-aged woman who is awake, in no distress. HEENT: Head atraumatic, normocephalic. Sclerae anicteric. Buccal mucosa dry. NECK: Supple, trachea midline. CHEST: Rise symmetrical. Breath sounds diminished to bases. HEART: S1, S2. ABDOMEN: Soft, bowel tones present. EXTREMITIES: Without cyanosis. Results Result Diagram: 11/01/16 0515 11/01/16 0515 Results 24 hrs Laboratory Tests Test 10/31/16 19:49 11/01/16 05:15 11/01/16 09:14 11/01/16 11:59 Bedside Glucose 110 99 128 White Blood Count 8.3 Red Blood Count 3.85 L Hemoglobin 12.3 Hematocrit 35.5 L Mean Corpuscular Volume 92.2 Mean Corpuscular Hemoglobin 31.9 Mean Corpuscular Hemoglobin Concent 34.6 Red Cell Distribution Width 15.9 H Platelet Count 267 Mean Platelet Volume 8.8 Neutrophils % 72.5 Lymphocytes % 19.3 Monocytes % 5.2 Eosinophils % 0.4 Basophils % 0.2 Nucleated Red Blood Cells % 0.0 Neutrophils # 6.0 Lymphocytes # 1.6 Monocytes # 0.4 Eosinophils # 0.0 Basophils # 0.0 Nucleated Red Blood Cells # 0.0 Sodium Level 129 L Potassium Level 3.7 Chloride Level 102 Carbon Dioxide Level 20 L Anion Gap 11 Blood Urea Nitrogen 11 Creatinine 0.86 Glucose Level 95 Calcium Level 7.4 L Phosphorus Level 2.9 Magnesium Level 1.8 Test 11/01/16 17:40 Bedside Glucose 97 Medications Medications Current Medications Ondansetron HCl (Zofran Inj) 4 mg Q6H PRN IV NAUSEA AND/OR VOMITING; Start at 23:30 Magnesium Hydroxide (Milk Of Mag) 30 ml DAILY PRN PO CONSTIPATION; Start at 23:30 Famotidine (Pepcid) 20 mg DAILY PO Last administered on 11/01/16 09:50; Admin Dose 20 MG; Start 10/26/16 at 09:00 Enoxaparin Sodium (Lovenox) 40 mg DAILY SC Last administered on 11/01/16 09:49 ; Admin Dose 40 MG; Start 10/26/16 at 09:00 Diagnostic Test (Pha) (Accu-Chek) 1 ea 02 XX Last administered on 10/31/16 02: 00; Admin Dose 1 EA; Start 10/27/16 at 02:00 Miscellaneous Information 1 ea NOTE XX ; Start 10/26/16 at 16:00 Glucose (Glutose) 15 gm Q15M PRN PO DECREASED GLUCOSE; Start 10/26/16 at 16:00 Glucose (Glutose) 22.5 gm Q15M PRN PO DECREASED GLUCOSE; Start 10/26/16 at 16: 00 Dextrose (D50w Syringe) 25 ml Q15M PRN IV DECREASED GLUCOSE; Start 10/26/16 at 16:00 Dextrose (D50w Syringe) 50 ml Q15M PRN IV DECREASED GLUCOSE; Start 10/26/16 at 16:00 Glucagon (Glucagen) 1 mg Q15M PRN IM DECREASED GLUCOSE; Start 10/26/16 at 16:00 Glucose 15 gm 15 gm Q15M PRN BUCCAL DECREASED GLUCOSE; Start 10/26/16 at 16:00 Cefepime HCl 50 ml @ 100 mls/hr Q12 IVPB Last administered on 11/01/16 09:12; Admin Dose 100 MLS/HR; Start 10/26/16 at 21:00 Metronidazole (Flagyl 500 Mg (Pmx)) 100 ml @ 100 mls/hr Q8 IVPB Last administered on 11/01/16 14:18; Admin Dose 100 MLS/HR; Start 10/27/16 at 22:00 Citalopram Hydrobromide (Celexa) 20 mg DAILY PO Last administered on 11/01/16 09:50; Admin Dose 20 MG; Start 10/28/16 at 09:00 Emtricitabine/ Tenofovir (Truvada) 1 tab DAILY PO Last administered on 09:51; Admin Dose 1 TAB; Start 10/27/16 at 18:00 Folic Acid (Folic Acid) 1 mg DAILY PO Last administered on 11/01/16 09:50; Admin Dose 1 MG; Start 10/28/16 at 09:00 Gabapentin (Neurontin) 300 mg TID PO Last administered on 11/01/16 12:33; Admin Dose 300 MG; Start 10/27/16 at 21:00 Miscellaneous Medication (Isentress) 400 mg BID PO Last administered on 09:51; Admin Dose 400 MG; Start 10/27/16 at 21:00 Acetaminophen/ Hydrocodone Bitart ([place] (5/325)) 1 tab Q4H PRN PO PAIN Last administered on 10/30/16 17:25; Admin Dose 1 TAB; Start 10/28/16 at 16:30 Trimethoprim/ Sulfamethoxazole (Bactrim (Ds)) 1 tab DAILY PO Last administered on 11/01/16 09:51; Admin Dose 1 TAB; Start 10/30/16 at 14:00 Azithromycin 1200 mg 1,200 mg Q7D PO Last administered on 10/30/16 15:52; Admin Dose 1,200 MG; Start 10/30/16 at 15:00 Potassium Chloride/Dextrose/ Sod Cl (D5-1/2ns + KCl 20 Meq) 1,000 ml @ 70 mls/ hr [id number] IV Last administered on 11/01/16 05:38; Admin Dose 70 MLS/HR; Start 10/31/16 at 10:30 Vancomycin HCl (Vancomycin Oral Syringe) 250 mg Q6 PO Last administered on 14:18; Admin Dose 250 MG; Start 11/01/16 at 12:00 Cholestyramine Resin (Questran) 1 pkt DAILY PO Last administered on 11/01/16 12 :33; Admin Dose 1 PKT; Start 11/01/16 at 12:00 Acyclovir (Zovirax) 400 mg DAILY PO ; Start 11/02/16 at 09:00 Fluconazole (Diflucan) 100 mg DAILY PO ; Start 11/02/16 at 09:00 Ciprofloxacin HCl (Ciloxan 0.3% Oph) 2 drop BID BOTH EYES Last administered on 11/01/16 14:22; Admin Dose 2 DROP; Start 11/01/16 at 12:30; Stop 11/06/16 at 12:29 PAULETTE JONES MD November 01, 2016 18:18
[2016-11-01 19:44] VITALS: BP 115/56; RESP 18
[2016-11-02] MEDS: VANCOMYCIN HCL 250 MG/5ML POSYG PO SCH ×4 (00:32→18:35)
[2016-11-02] MEDS: ACCUCHECK AT 2AM (Patients on SS coverage) XX SCH (02:00)
[2016-11-02] MEDS: D5W-0.45 NACL + KCL 20 MEQ 1,000 ML IV SCH ×2 (05:24→18:36)
[2016-11-02] MEDS: metroNIDAZOLE 500 MG/NS (PMX) 100 ML IVPB SCH ×3 (05:59→22:50)
[2016-11-02 08:00] VITALS: BP 93/63; RESP 20
[2016-11-02] MEDS: INSULIN ASPART [NOVOLOG] 3 ML PEN SC SCH ×4 (08:15→21:00)
[2016-11-02] MEDS: RALTEGRAVIR 400 MG TAB PO SCH ×2 (08:57→21:01)
[2016-11-02] MEDS: FOLIC ACID 1 MG TAB PO SCH (08:57)
[2016-11-02] MEDS: TRIMETHOPRIM/SULFAMETHOX (DS) TAB PO SCH (08:57)
[2016-11-02] MEDS: EMTRICITABINE/TENOFOVIR TAB PO SCH (08:57)
[2016-11-02] MEDS: CITALOPRAM 20 MG TAB PO SCH (08:57)
[2016-11-02] MEDS: FLUCONAZOLE 100 MG TAB PO SCH (08:58)
[2016-11-02] MEDS: CIPROFLOXACIN 0.3% 2.5 ML OPH BOTH EYES SCH ×2 (08:58→21:01)
[2016-11-02] MEDS: GABAPENTIN 300 MG CAP PO SCH ×3 (08:58→21:01)
[2016-11-02] MEDS: FAMOTIDINE 20 MG TAB PO SCH (08:58)
[2016-11-02] MEDS: CHOLESTYRAMINE 4 GM PACKET PO SCH (08:58)
[2016-11-02] MEDS: ACYCLOVIR 400 MG TAB PO SCH (08:58)
[2016-11-02] MEDS: CEFEPIME 1GM/50 ML (PMX) 50 ML IVPB SCH ×2 (09:01→21:01)
[2016-11-02] MEDS: ENOXAPARIN 40 MG/0.4 ML SYG SC SCH (09:41)
--- NOTE | 2016-11-02 11:44 | CONS ---
Date/Time of Note Date/Time of Note DATE: 11/02/16 TIME: 11:42 Assessment/Plan Assessment/Plan Additional Assessment/Plan Chest x-ray was reviewed from yesterday afternoon which is again showing a linear band of fibrotic changes in the right upper lobe. No other acute infiltrates identified. Assessment recommendations; 1. Patient admitted for right upper lobe pneumonia, however there is significant fibrotic changes in the right upper lobe likely from prior granulomatous infection. 2. Clinically much improved. 3. HIV positive on heart regimen. 4. History of subarachnoid hemorrhage and craniotomy with a history of hydrocephalus. Patient can be discharged home on oral antibiotics. I would recommend discharging her on a combination of doxycycline and Levaquin at least for a week. Consultation Date/Type/Reason Admit Date/Time Oct 25, 2016 at 21:43 Initial Consult Date 10/29/16 Type of Consultation: pulmonary 24 HR Interval Summary Free Text/Dictation Patient condition stable. Denies any shortness of breath, fever, cough chest pain sputum production. General exam; middle-aged woman awake alert currently in no distress. Exam/Review of Systems Vital Signs Vitals Vital Signs Date Time Temp Pulse Resp B/P Pulse Ox O2 Delivery O2 Flow Rate FiO2 11/02/16 08:00 98.0 88 20 93/63 98 11/01/16 20:00 Room Air Intake and Output 11/01/16 11/01/16 11/02/16 15:00 23:00 07:00 Intake Total 50 ml 1750 ml 960 ml Output Total 400 ml 150 ml Balance 50 ml 1350 ml 810 ml Exam HEENT exam is; supple neck, no JVD. No lymphadenopathy. Midline trachea. No thyromegaly. Patient has fair dentition. No oral thrush. Chest examination; clear to auscultation. S1-S2 audible, no murmurs. Regular rhythm. Abdomen examination; soft, no organomegaly. Bowel sounds audible. Extremity examination; no peripheral edema. FOOD AND BEVERAGE ASSISTANT examination; no focal deficit. Results Result Diagram: 11/01/16 0515 11/01/16 0515 Results 24 hrs Laboratory Tests Test 11/01/16 11:59 11/01/16 17:40 11/01/16 21:27 11/02/16 09:00 Bedside Glucose 128 97 101 90 Medications Medications Current Medications Ondansetron HCl (Zofran Inj) 4 mg Q6H PRN IV NAUSEA AND/OR VOMITING; Start at 23:30 Magnesium Hydroxide (Milk Of Mag) 30 ml DAILY PRN PO CONSTIPATION; Start at 23:30 Famotidine (Pepcid) 20 mg DAILY PO Last administered on 11/02/16 08:58; Admin Dose 20 MG; Start 10/26/16 at 09:00 Enoxaparin Sodium (Lovenox) 40 mg DAILY SC Last administered on 11/02/16 09:41 ; Admin Dose 40 MG; Start 10/26/16 at 09:00 Diagnostic Test (Pha) (Accu-Chek) 1 ea 02 XX Last administered on 10/31/16 02: 00; Admin Dose 1 EA; Start 10/27/16 at 02:00 Miscellaneous Information 1 ea NOTE XX ; Start 10/26/16 at 16:00 Glucose (Glutose) 15 gm Q15M PRN PO DECREASED GLUCOSE; Start 10/26/16 at 16:00 Glucose (Glutose) 22.5 gm Q15M PRN PO DECREASED GLUCOSE; Start 10/26/16 at 16: 00 Dextrose (D50w Syringe) 25 ml Q15M PRN IV DECREASED GLUCOSE; Start 10/26/16 at 16:00 Dextrose (D50w Syringe) 50 ml Q15M PRN IV DECREASED GLUCOSE; Start 10/26/16 at 16:00 Glucagon (Glucagen) 1 mg Q15M PRN IM DECREASED GLUCOSE; Start 10/26/16 at 16:00 Glucose 15 gm 15 gm Q15M PRN BUCCAL DECREASED GLUCOSE; Start 10/26/16 at 16:00 Cefepime HCl 50 ml @ 100 mls/hr Q12 IVPB Last administered on 11/02/16 09:01; Admin Dose 100 MLS/HR; Start 10/26/16 at 21:00 Metronidazole (Flagyl 500 Mg (Pmx)) 100 ml @ 100 mls/hr Q8 IVPB Last administered on 11/02/16 05:59; Admin Dose 100 MLS/HR; Start 10/27/16 at 22:00 Citalopram Hydrobromide (Celexa) 20 mg DAILY PO Last administered on 11/02/16 08:57; Admin Dose 20 MG; Start 10/28/16 at 09:00 Emtricitabine/ Tenofovir (Truvada) 1 tab DAILY PO Last administered on 08:57; Admin Dose 1 TAB; Start 10/27/16 at 18:00 Folic Acid (Folic Acid) 1 mg DAILY PO Last administered on 11/02/16 08:57; Admin Dose 1 MG; Start 10/28/16 at 09:00 Gabapentin (Neurontin) 300 mg TID PO Last administered on 11/02/16 08:58; Admin Dose 300 MG; Start 10/27/16 at 21:00 Miscellaneous Medication (Isentress) 400 mg BID PO Last administered on 08:57; Admin Dose 400 MG; Start 10/27/16 at 21:00 Acetaminophen/ Hydrocodone Bitart ([place] (5/325)) 1 tab Q4H PRN PO PAIN Last administered on 10/30/16 17:25; Admin Dose 1 TAB; Start 10/28/16 at 16:30 Trimethoprim/ Sulfamethoxazole (Bactrim (Ds)) 1 tab DAILY PO Last administered on 11/02/16 08:57; Admin Dose 1 TAB; Start 10/30/16 at 14:00 Azithromycin 1200 mg 1,200 mg Q7D PO Last administered on 10/30/16 15:52; Admin Dose 1,200 MG; Start 10/30/16 at 15:00 Potassium Chloride/Dextrose/ Sod Cl (D5-1/2ns + KCl 20 Meq) 1,000 ml @ 70 mls/ hr [id number] IV Last administered on 11/01/16 22:35; Admin Dose 70 MLS/HR; Start 10/31/16 at 10:30 Vancomycin HCl (Vancomycin Oral Syringe) 250 mg Q6 PO Last administered on 05:57; Admin Dose 250 MG; Start 11/01/16 at 12:00 Cholestyramine Resin (Questran) 1 pkt DAILY PO Last administered on 11/02/16 08 :58; Admin Dose 1 PKT; Start 11/01/16 at 12:00 Acyclovir (Zovirax) 400 mg DAILY PO Last administered on 11/02/16 08:58; Admin Dose 400 MG; Start 11/02/16 at 09:00 Fluconazole (Diflucan) 100 mg DAILY PO Last administered on 11/02/16 08:58; Admin Dose 100 MG; Start 11/02/16 at 09:00 Ciprofloxacin HCl (Ciloxan 0.3% Oph) 2 drop BID BOTH EYES Last administered on 11/02/16 08:58; Admin Dose 2 DROP; Start 11/01/16 at 12:30; Stop 11/06/16 at 12:29 MADDIE CUEVAS November 02, 2016 11:44
--- NOTE | 2016-11-02 13:55 | PN ---
DATE: 11/02/2016 SUBJECTIVE: No acute changes overnight. The patient is alert, comfortable on room air, no shortnes s of breath. No fevers. No labs this morning. ANTIMICROBIALS: She is on: 1. Oral fluconazole 100 mg daily. 2. Oral acyclovir 400 mg daily. 3. Oral vancomycin 250 mg q.6h. 4. Questran 1 packet daily. 5. Also on Zithromax 1200 mg weekly. 6. Bactrim 1 tablet p.o. daily. 7. Flagyl 500 mg q.8 hours. 8. Cefepime day #8 IV. PHYSICAL EXAMINATION: GENERAL: Well-developed, middle-aged woman who is awake, in no distress. HEENT: Head atraumatic, normocephalic. Sclerae anicteric. Buccal mucosa pink. NECK: Supple, trachea midline. CHEST: Rise symmetrical. Breath sounds clear. HEART: S1, S2. ABDOMEN: Soft. Bowel tones present. EXTREMITIES: Without cyanosis. ASSESSMENT: 1. Resolving pneumonia. 2. Clostridium difficile colitis. 3. Acquired immunodeficiency syndrome with CD4 count of 156. 4. Vancomycin-resistant Enterococcus stool colonization. 5. Cirrhosis. PLAN: The patient remains stable, overall improving. Pulmonary team on case. Continue present car e. Anticipate discharge on oral Levaquin and keep on other antibiotics. The [facility] to [facility]. The patient will need to be on oral vancomycin for 2 more weeks based on her symptoms po ssibly longer. Dictated By: MARIELOS OMALLEY STOCK PATCH SAWYER for KALEB ROWLEY/KATIE Conf#: [id number] DID#: [id number]
--- NOTE | 2016-11-02 17:43 | PN ---
Date/Time of Note Date/Time of Note DATE: 11/02/16 TIME: 17:42 Assessment/Plan VTE Prophylaxis VTE Prophylaxis Intervention: LMWH Lines/Catheters IV Catheter Type (from Nrs): Central Line Central line still needed: Yes Urinary Cath still in place: No Assessment/Plan Assessment/Plan 1. Sepsis Shock 2/2 RUL pneumonia and/or C. difficile -Now off pressor support, IVF and abx - VRE in Stool , ID following -CT chest shows possible indolent granulomatous airway infection, pulmonary consultation continue cefepime, azithromycin and Flagyl 2. Hx of HIV- resumed home meds, ID following 3.Hx of Subarachnoid hemorrhage and hydrocephalus - non-acute issue 4. History of stroke - Cont aspirin 5. hx of Hypertension 6. Cl difficle diarrhea, VRE in stool On IV abx as per ID Place rectal tube for continuous diarrhea, start IVF D51/2 NS Prophylaxis: Lovenox PT evaluation and treatment Exam/Review of Systems Vital Signs Vitals Vital Signs Date Time Temp Pulse Resp B/P Pulse Ox O2 Delivery O2 Flow Rate FiO2 11/02/16 08:00 98.0 88 20 93/63 98 11/01/16 20:00 Room Air Intake and Output 11/01/16 11/01/16 11/02/16 15:00 23:00 07:00 Intake Total 50 ml 1750 ml 960 ml Output Total 400 ml 150 ml Balance 50 ml 1350 ml 810 ml Exam GENERAL: This is a well-developed, fragile, middle-aged woman who is awake, in no distress. HEENT: Head atraumatic, normocephalic. Sclerae anicteric. Buccal mucosa dry. NECK: Supple, trachea midline. CHEST: Rise symmetrical. Breath sounds diminished to bases. HEART: S1, S2. ABDOMEN: Soft, bowel tones present. EXTREMITIES: Without cyanosis. Results Result Diagram: 11/01/16 0515 11/01/16 0515 Results 24 hrs Laboratory Tests Test 11/01/16 21:27 11/02/16 09:00 11/02/16 12:04 11/02/16 17:35 Bedside Glucose 101 90 98 94 Medications Medications Current Medications Ondansetron HCl (Zofran Inj) 4 mg Q6H PRN IV NAUSEA AND/OR VOMITING; Start at 23:30 Magnesium Hydroxide (Milk Of Mag) 30 ml DAILY PRN PO CONSTIPATION; Start at 23:30 Famotidine (Pepcid) 20 mg DAILY PO Last administered on 11/02/16 08:58; Admin Dose 20 MG; Start 10/26/16 at 09:00 Enoxaparin Sodium (Lovenox) 40 mg DAILY SC Last administered on 11/02/16 09:41 ; Admin Dose 40 MG; Start 10/26/16 at 09:00 Diagnostic Test (Pha) (Accu-Chek) 1 ea 02 XX Last administered on 10/31/16 02: 00; Admin Dose 1 EA; Start 10/27/16 at 02:00 Miscellaneous Information 1 ea NOTE XX ; Start 10/26/16 at 16:00 Glucose (Glutose) 15 gm Q15M PRN PO DECREASED GLUCOSE; Start 10/26/16 at 16:00 Glucose (Glutose) 22.5 gm Q15M PRN PO DECREASED GLUCOSE; Start 10/26/16 at 16: 00 Dextrose (D50w Syringe) 25 ml Q15M PRN IV DECREASED GLUCOSE; Start 10/26/16 at 16:00 Dextrose (D50w Syringe) 50 ml Q15M PRN IV DECREASED GLUCOSE; Start 10/26/16 at 16:00 Glucagon (Glucagen) 1 mg Q15M PRN IM DECREASED GLUCOSE; Start 10/26/16 at 16:00 Glucose 15 gm 15 gm Q15M PRN BUCCAL DECREASED GLUCOSE; Start 10/26/16 at 16:00 Cefepime HCl 50 ml @ 100 mls/hr Q12 IVPB Last administered on 11/02/16 09:01; Admin Dose 100 MLS/HR; Start 10/26/16 at 21:00 Metronidazole (Flagyl 500 Mg (Pmx)) 100 ml @ 100 mls/hr Q8 IVPB Last administered on 11/02/16 13:43; Admin Dose 100 MLS/HR; Start 10/27/16 at 22:00 Citalopram Hydrobromide (Celexa) 20 mg DAILY PO Last administered on 11/02/16 08:57; Admin Dose 20 MG; Start 10/28/16 at 09:00 Emtricitabine/ Tenofovir (Truvada) 1 tab DAILY PO Last administered on 08:57; Admin Dose 1 TAB; Start 10/27/16 at 18:00 Folic Acid (Folic Acid) 1 mg DAILY PO Last administered on 11/02/16 08:57; Admin Dose 1 MG; Start 10/28/16 at 09:00 Gabapentin (Neurontin) 300 mg TID PO Last administered on 11/02/16 13:43; Admin Dose 300 MG; Start 10/27/16 at 21:00 Miscellaneous Medication (Isentress) 400 mg BID PO Last administered on 08:57; Admin Dose 400 MG; Start 10/27/16 at 21:00 Acetaminophen/ Hydrocodone Bitart ([place] (5/325)) 1 tab Q4H PRN PO PAIN Last administered on 10/30/16 17:25; Admin Dose 1 TAB; Start 10/28/16 at 16:30 Trimethoprim/ Sulfamethoxazole (Bactrim (Ds)) 1 tab DAILY PO Last administered on 11/02/16 08:57; Admin Dose 1 TAB; Start 10/30/16 at 14:00 Azithromycin 1200 mg 1,200 mg Q7D PO Last administered on 10/30/16 15:52; Admin Dose 1,200 MG; Start 10/30/16 at 15:00 Potassium Chloride/Dextrose/ Sod Cl (D5-1/2ns + KCl 20 Meq) 1,000 ml @ 70 mls/ hr [id number] IV Last administered on 11/01/16 22:35; Admin Dose 70 MLS/HR; Start 10/31/16 at 10:30 Vancomycin HCl (Vancomycin Oral Syringe) 250 mg Q6 PO Last administered on 12:05; Admin Dose 250 MG; Start 11/01/16 at 12:00 Cholestyramine Resin (Questran) 1 pkt DAILY PO Last administered on 11/02/16 08 :58; Admin Dose 1 PKT; Start 11/01/16 at 12:00 Acyclovir (Zovirax) 400 mg DAILY PO Last administered on 11/02/16 08:58; Admin Dose 400 MG; Start 11/02/16 at 09:00 Fluconazole (Diflucan) 100 mg DAILY PO Last administered on 11/02/16 08:58; Admin Dose 100 MG; Start 11/02/16 at 09:00 Ciprofloxacin HCl (Ciloxan 0.3% Oph) 2 drop BID BOTH EYES Last administered on 11/02/16t 08:58; Admin Dose 2 DROP; Start 11/01/16 at 12:30; Stop 11/06/16 at 12:29 PAULETTE JONES MD November 02, 2016 17:43
[2016-11-02 20:05] VITALS: BP 91/60; RESP 18
[2016-11-03] MEDS: VANCOMYCIN HCL 250 MG/5ML POSYG PO SCH ×5 (00:43→23:09)
[2016-11-03] MEDS: ACCUCHECK AT 2AM (Patients on SS coverage) XX SCH (02:00)
[2016-11-03] MEDS ORDERED: DEXTROSE 5%-0.45% NACL 1,000 ML IV SCH (02:00)
[2016-11-03] MEDS: metroNIDAZOLE 500 MG/NS (PMX) 100 ML IVPB SCH ×3 (05:54→23:09)
[2016-11-03 06:19] LABS: CALCIUM 7.3 mg/dl (8.4-10.2); CREATININE 0.66 mg/dl (0.44-1.00); POTASSIUM 3.9 mmol/L (3.5-5.1)
[2016-11-03] MEDS: INSULIN ASPART [NOVOLOG] 3 ML PEN SC SCH ×4 (08:07→21:00)
[2016-11-03] MEDS: FOLIC ACID 1 MG TAB PO SCH (09:26)
[2016-11-03] MEDS: CITALOPRAM 20 MG TAB PO SCH (09:26)
[2016-11-03] MEDS: GABAPENTIN 300 MG CAP PO SCH ×3 (09:26→22:18)
[2016-11-03] MEDS: ACYCLOVIR 400 MG TAB PO SCH (09:26)
[2016-11-03] MEDS: RALTEGRAVIR 400 MG TAB PO SCH ×2 (09:26→22:18)
[2016-11-03] MEDS: EMTRICITABINE/TENOFOVIR TAB PO SCH (09:26)
[2016-11-03] MEDS: TRIMETHOPRIM/SULFAMETHOX (DS) TAB PO SCH (09:26)
[2016-11-03] MEDS: FLUCONAZOLE 100 MG TAB PO SCH (09:26)
[2016-11-03] MEDS: FAMOTIDINE 20 MG TAB PO SCH (09:26)
[2016-11-03] MEDS: CHOLESTYRAMINE 4 GM PACKET PO SCH (09:27)
[2016-11-03] MEDS: CEFEPIME 1GM/50 ML (PMX) 50 ML IVPB SCH ×2 (09:27→22:18)
[2016-11-03] MEDS: CIPROFLOXACIN 0.3% 2.5 ML OPH BOTH EYES SCH ×2 (09:27→22:19)
[2016-11-03] MEDS: ENOXAPARIN 40 MG/0.4 ML SYG SC SCH (09:34)
[2016-11-03 11:16] VITALS: BP 108/71; RESP 16
--- NOTE | 2016-11-03 11:29 | CONS ---
Date/Time of Note Date/Time of Note DATE: 11/03/16 TIME: 11:27 Consult Date/Type/Reason Admit Date/Time Oct 25, 2016 at 21:43 Initial Consult Date 10/29/16 Type of Consultation: pulmonary Subjective Patient doing okay this morning she is a poor historian unable to give me further details Objective Vital Signs Date Time Temp Pulse Resp B/P Pulse Ox O2 Delivery O2 Flow Rate FiO2 11/03/16 11:16 97.8 84 16 108/71 92 11/02/16 20:00 Room Air Intake and Output 11/02/16 11/02/16 11/03/16 15:00 23:00 07:00 Intake Total 150 ml 1210 ml 640 ml Output Total 750 ml Balance 150 ml 1210 ml -110 ml Exam GENERAL: Elderly-appearing lady comfortable at rest VITAL SIGNS: per chart NECK: Supple. No JVD or lymphadenopathy. CARDIAC EXAM: S1, S2. No added sounds or murmurs. CHEST: clear bilaterally, No added sounds, rales or wheezes ABDOMEN: Soft, nontender. No guarding or rebound. EXTREMITIES: No cyanosis, clubbing or edema. NEUROLOGIC: Generalized weakness. No focal deficits. Results/Medications Result Diagram: 11/01/16 0515 11/03/16 0455 Results 24 hrs Laboratory Tests Test 11/02/16 12:04 11/02/16 17:35 11/02/16 20:59 11/03/16 04:55 Bedside Glucose 98 94 88 Sodium Level 127 L Potassium Level 3.9 Chloride Level 103 Carbon Dioxide Level 20 L Anion Gap 8 Blood Urea Nitrogen 6 L Creatinine 0.66 Glucose Level 87 Calcium Level 7.3 L Test 11/03/16 08:05 Bedside Glucose 86 Medications Current Medications Ondansetron HCl (Zofran Inj) 4 mg Q6H PRN IV NAUSEA AND/OR VOMITING; Start at 23:30 Magnesium Hydroxide (Milk Of Mag) 30 ml DAILY PRN PO CONSTIPATION; Start at 23:30 Famotidine (Pepcid) 20 mg DAILY PO Last administered on 11/03/16 09:26; Admin Dose 20 MG; Start 10/26/16 at 09:00 Enoxaparin Sodium (Lovenox) 40 mg DAILY SC Last administered on 11/03/16 09:34 ; Admin Dose 40 MG; Start 10/26/16 at 09:00 Diagnostic Test (Pha) (Accu-Chek) 1 ea 02 XX Last administered on 10/31/16 02: 00; Admin Dose 1 EA; Start 10/27/16 at 02:00 Miscellaneous Information 1 ea NOTE XX ; Start 10/26/16 at 16:00 Glucose (Glutose) 15 gm Q15M PRN PO DECREASED GLUCOSE; Start 10/26/16 at 16:00 Glucose (Glutose) 22.5 gm Q15M PRN PO DECREASED GLUCOSE; Start 10/26/16 at 16: 00 Dextrose (D50w Syringe) 25 ml Q15M PRN IV DECREASED GLUCOSE; Start 10/26/16 at 16:00 Dextrose (D50w Syringe) 50 ml Q15M PRN IV DECREASED GLUCOSE; Start 10/26/16 at 16:00 Glucagon (Glucagen) 1 mg Q15M PRN IM DECREASED GLUCOSE; Start 10/26/16 at 16:00 Glucose 15 gm 15 gm Q15M PRN BUCCAL DECREASED GLUCOSE; Start 10/26/16 at 16:00 Cefepime HCl 50 ml @ 100 mls/hr Q12 IVPB Last administered on 11/03/16 09:27; Admin Dose 100 MLS/HR; Start 10/26/16 at 21:00 Metronidazole (Flagyl 500 Mg (Pmx)) 100 ml @ 100 mls/hr Q8 IVPB Last administered on 11/03/16 05:54; Admin Dose 100 MLS/HR; Start 10/27/16 at 22:00 Citalopram Hydrobromide (Celexa) 20 mg DAILY PO Last administered on 11/03/16 09:26; Admin Dose 20 MG; Start 10/28/16 at 09:00 Emtricitabine/ Tenofovir (Truvada) 1 tab DAILY PO Last administered on 09:26; Admin Dose 1 TAB; Start 10/27/16 at 18:00 Folic Acid (Folic Acid) 1 mg DAILY PO Last administered on 11/03/16 09:26; Admin Dose 1 MG; Start 10/28/16 at 09:00 Gabapentin (Neurontin) 300 mg TID PO Last administered on 11/03/16 09:26; Admin Dose 300 MG; Start 10/27/16 at 21:00 Miscellaneous Medication (Isentress) 400 mg BID PO Last administered on 09:26; Admin Dose 400 MG; Start 10/27/16 at 21:00 Acetaminophen/ Hydrocodone Bitart ([place] (5/325)) 1 tab Q4H PRN PO PAIN Last administered on 10/30/16 17:25; Admin Dose 1 TAB; Start 10/28/16 at 16:30 Trimethoprim/ Sulfamethoxazole (Bactrim (Ds)) 1 tab DAILY PO Last administered on 11/03/16 09:26; Admin Dose 1 TAB; Start 10/30/16 at 14:00 Azithromycin (Zithromax) 1,200 mg Q7D PO Last administered on 10/30/16 15:52; Admin Dose 1,200 MG; Start 10/30/16 at 15:00 Vancomycin HCl (Vancomycin Oral Syringe) 250 mg Q6 PO Last administered on 05:54; Admin Dose 250 MG; Start 11/01/16 at 12:00 Cholestyramine Resin (Questran) 1 pkt DAILY PO Last administered on 11/03/16 09 :27; Admin Dose 1 PKT; Start 11/01/16 at 12:00 Acyclovir (Zovirax) 400 mg DAILY PO Last administered on 11/03/16 09:26; Admin Dose 400 MG; Start 11/02/16 at 09:00 Fluconazole (Diflucan) 100 mg DAILY PO Last administered on 11/03/16 09:26; Admin Dose 100 MG; Start 11/02/16 at 09:00 Ciprofloxacin HCl 2 drop 2 drop BID BOTH EYES Last administered on 11/03/16 09: 27; Admin Dose 2 DROP; Start 11/01/16 at 12:30; Stop 11/06/16 at 12:29 Dextrose/Sodium Chloride (D5-1/2ns) 1,000 ml @ 40 mls/hr Q24H IV Last administered on 11/03/16 02:22; Admin Dose 40 MLS/HR; Start 11/03/16 at 02:00 Assessment/Plan Chief Complaint/Hosp Course Assessment 1. Right upper lobe pneumonia confirmed on repeat chest CT today it appears this pneumonia has never really resolved when reviewing prior chest CTs. Evidence of granulomatous disease. Persistent infiltrate concerning for opportunistic infection 2. C. difficile colitis 3. VRE 4. History of HIV immunodeficiency 5. Hyponatremia questionable SIAD[facility] Recommendations 1. Continue current antibiotics 2. Will probably need bronchoscopy with lavage and biopsies given persistent infection 3. Continue renal recommendations Problems: VÍCTOR HACKETT MD, FCCP November 03, 2016 11:29
--- NOTE | 2016-11-03 14:56 | PN ---
Date/Time of Note Date/Time of Note DATE: 11/03/16 TIME: 14:52 Assessment/Plan VTE Prophylaxis VTE Prophylaxis Intervention: LMWH Lines/Catheters Urinary Cath still in place: No Assessment/Plan Assessment/Plan 1. Sepsis Shock 2/2 RUL pneumonia and/or C. difficile -Now off pressor support, IVF and abx - VRE in Stool , ID following -CT chest shows possible indolent granulomatous airway infection, pulmonary consultation continue cefepime, azithromycin and Flagyl 2. Hx of HIV- resumed home meds, ID following 3.Hx of Subarachnoid hemorrhage and hydrocephalus - non-acute issue 4. History of stroke - Cont aspirin 5. hx of Hypertension 6. Cl difficle diarrhea, VRE in stool On IV abx as per ID Place rectal tube for continuous diarrhea, start IVF D51/2 NS Prophylaxis: Lovenox PT evaluation and treatment Na trendign down, Change IVF to NS at 50 cc x 1 liter imodium 2 mg pO x 1 dose now Subjective 24 Hr Interval Summary Free Text/Dictation Na dropped to 127, Bp stable Exam/Review of Systems Vital Signs Vitals Vital Signs Date Time Temp Pulse Resp B/P Pulse Ox O2 Delivery O2 Flow Rate FiO2 11/03/16 11:16 97.8 84 16 108/71 92 11/02/16 20:00 Room Air Intake and Output 11/02/16 11/02/16 11/03/16 15:00 23:00 07:00 Intake Total 150 ml 1210 ml 640 ml Output Total 750 ml Balance 150 ml 1210 ml -110 ml Results Result Diagram: 11/01/16 0515 11/03/16 0455 Results 24 hrs Laboratory Tests Test 11/02/16 17:35 11/02/16 20:59 11/03/16 04:55 11/03/16 08:05 Bedside Glucose 94 88 86 Sodium Level 127 L Potassium Level 3.9 Chloride Level 103 Carbon Dioxide Level 20 L Anion Gap 8 Blood Urea Nitrogen 6 L Creatinine 0.66 Glucose Level 87 Calcium Level 7.3 L Test 11/03/16 12:26 Bedside Glucose 84 Medications Medications Current Medications Ondansetron HCl (Zofran Inj) 4 mg Q6H PRN IV NAUSEA AND/OR VOMITING; Start at 23:30 Magnesium Hydroxide (Milk Of Mag) 30 ml DAILY PRN PO CONSTIPATION; Start at 23:30 Famotidine (Pepcid) 20 mg DAILY PO Last administered on 11/03/16 09:26; Admin Dose 20 MG; Start 10/26/16 at 09:00 Enoxaparin Sodium (Lovenox) 40 mg DAILY SC Last administered on 11/03/16 09:34 ; Admin Dose 40 MG; Start 10/26/16 at 09:00 Diagnostic Test (Pha) (Accu-Chek) 1 ea 02 XX Last administered on 10/31/16 02: 00; Admin Dose 1 EA; Start 10/27/16 at 02:00 Miscellaneous Information 1 ea NOTE XX ; Start 10/26/16 at 16:00 Glucose (Glutose) 15 gm Q15M PRN PO DECREASED GLUCOSE; Start 10/26/16 at 16:00 Glucose (Glutose) 22.5 gm Q15M PRN PO DECREASED GLUCOSE; Start 10/26/16 at 16: 00 Dextrose (D50w Syringe) 25 ml Q15M PRN IV DECREASED GLUCOSE; Start 10/26/16 at 16:00 Dextrose (D50w Syringe) 50 ml Q15M PRN IV DECREASED GLUCOSE; Start 10/26/16 at 16:00 Glucagon (Glucagen) 1 mg Q15M PRN IM DECREASED GLUCOSE; Start 10/26/16 at 16:00 Glucose 15 gm 15 gm Q15M PRN BUCCAL DECREASED GLUCOSE; Start 10/26/16 at 16:00 Cefepime HCl 50 ml @ 100 mls/hr Q12 IVPB Last administered on 11/03/16 09:27; Admin Dose 100 MLS/HR; Start 10/26/16 at 21:00 Metronidazole (Flagyl 500 Mg (Pmx)) 100 ml @ 100 mls/hr Q8 IVPB Last administered on 11/03/16 05:54; Admin Dose 100 MLS/HR; Start 10/27/16 at 22:00 Citalopram Hydrobromide (Celexa) 20 mg DAILY PO Last administered on 11/03/16 09:26; Admin Dose 20 MG; Start 10/28/16 at 09:00 Emtricitabine/ Tenofovir (Truvada) 1 tab DAILY PO Last administered on 09:26; Admin Dose 1 TAB; Start 10/27/16 at 18:00 Folic Acid (Folic Acid) 1 mg DAILY PO Last administered on 11/03/16 09:26; Admin Dose 1 MG; Start 10/28/16 at 09:00 Gabapentin (Neurontin) 300 mg TID PO Last administered on 11/03/16 12:28; Admin Dose 300 MG; Start 10/27/16 at 21:00 Miscellaneous Medication (Isentress) 400 mg BID PO Last administered on 09:26; Admin Dose 400 MG; Start 10/27/16 at 21:00 Acetaminophen/ Hydrocodone Bitart ([place] (5/325)) 1 tab Q4H PRN PO PAIN Last administered on 10/30/16 17:25; Admin Dose 1 TAB; Start 10/28/16 at 16:30 Trimethoprim/ Sulfamethoxazole (Bactrim (Ds)) 1 tab DAILY PO Last administered on 11/03/16 09:26; Admin Dose 1 TAB; Start 10/30/16 at 14:00 Azithromycin (Zithromax) 1,200 mg Q7D PO Last administered on 10/30/16 15:52; Admin Dose 1,200 MG; Start 10/30/16 at 15:00 Vancomycin HCl (Vancomycin Oral Syringe) 250 mg Q6 PO Last administered on 12:28; Admin Dose 250 MG; Start 11/01/16 at 12:00 Cholestyramine Resin (Questran) 1 pkt DAILY PO Last administered on 11/03/16 09 :27; Admin Dose 1 PKT; Start 11/01/16 at 12:00 Acyclovir (Zovirax) 400 mg DAILY PO Last administered on 11/03/16 09:26; Admin Dose 400 MG; Start 11/02/16 at 09:00 Fluconazole (Diflucan) 100 mg DAILY PO Last administered on 11/03/16 09:26; Admin Dose 100 MG; Start 11/02/16 at 09:00 Ciprofloxacin HCl 2 drop 2 drop BID BOTH EYES Last administered on 11/03/16 09: 27; Admin Dose 2 DROP; Start 11/01/16 at 12:30; Stop 11/06/16 at 12:29 Dextrose/Sodium Chloride (D5-1/2ns) 1,000 ml @ 40 mls/hr Q24H IV Last administered on 5/6/17at 02:22; Admin Dose 40 MLS/HR; Start 11/03/16 at 02:00 PAULETTE JONES MD November 03, 2016 14:56
[2016-11-03] MEDS ORDERED: LOPERAMIDE 2 MG CAP PO ONE (15:00)
[2016-11-03] MEDS: SOD CHLORIDE 0.9% 1,000 ML IV SCH (15:18)
--- NOTE | 2016-11-03 18:41 | RADRPT ---
PROCEDURE: CT Chest without contrast. CLINICAL INDICATION: Pneumonia. Septic shock. TECHNIQUE: Helical axial sections were obtained through the chest without intravenous contrast enh ancement. Coronal and sagittal reformatted images were obtained from the axial source images. Total exam DLP is 302.29 mGy-cm. CTDIvol is 9.59 mGy. One or more of the following dose reduction tech niques were used: Automated exposure control, adjustment of the mA and/or kV according to patient si ze, use of iterative reconstruction technique. COMPARISON: CT scan of the chest dated 10/26/2016. FINDINGS: There is patchy pneumonia in the right upper lobe inferiorly and in the right lower lobe superiorly. There is right perihilar bronchiectasis. The findings are similar to 10/26/2016. There is mild a telectasis at the left lung base, new when compared with the prior study. There is no pulmonary nodule or mass lesion. There is no mediastinal or hilar lymphadenopathy or mass. Small benign calcified lymph nodes are pre sent in the left hilar region. There is no axillary, supraclavicular, or internal mammary lymphadenopathy. The thoracic aorta is not dilated. There is calcification in the aorta consistent with atherosclero sis. The heart size is normal. There is a small pericardial effusion. There is a small right pleural ef fusion, unchanged. There is a new small left pleural effusion. A right-sided [employer] shunt catheter is once again noted. Images through the upper abdomen demonstrate surgical clips from previous cholecystectomy. There is mild fatty metamorphosis of the liver. There is moderate ascites, worse than seen previously with fluid around the liver and spleen. The osseous structures are unremarkable with no fracture or lytic lesion. IMPRESSION: 1. Extensive right upper lobe and right perihilar pneumonia with associated bronchiectasis, similar to 10/26/2016. 2. Mild atelectasis at the left lung base, new when compared with the prior study. 3. Small benign calcified lymph nodes in the left hilar region. 4. Atherosclerosis. 5. Small pericardial effusion and small bilateral pleural effusions with a new left pleural effusio n. 6. [employer] shunt catheter. 7. Previous cholecystectomy. 8. Mild fatty metamorphosis of the liver. 9. Moderate ascites, worse than seen previously. RPTAT: QQ .Alfonso Nunez MD, MD Date Time Electronically viewed and signed by .Alfonso Nunez MD, MD on 11/03/2016 18:40 .R/
--- NOTE | 2016-11-03 19:34 | CONS ---
Date/Time of Note Date/Time of Note DATE: 11/03/16 TIME: 19:31 Assessment/Plan Assessment/Plan Chief Complaint/Hosp Course SUBJECTIVE: No acute changes overnight. The patient is alert, comfortable on room air, no shortness of breath. No fevers. No labs this morning. ANTIMICROBIALS: She is on: 1. Oral fluconazole 100 mg daily. 2. Oral acyclovir 400 mg daily. 3. Oral vancomycin 250 mg q.6h. 4. Questran 1 packet daily. 5. Also on Zithromax 1200 mg weekly. 6. Bactrim 1 tablet p.o. daily. 7. Flagyl 500 mg q.8 hours. 8. Cefepime day #8 IV. PHYSICAL EXAMINATION: GENERAL: Well-developed, middle-aged woman who is awake, in no distress. HEENT: Head atraumatic, normocephalic. Sclerae anicteric. Buccal mucosa pink. NECK: Supple, trachea midline. CHEST: Rise symmetrical. Breath sounds clear. HEART: S1, S2. ABDOMEN: Soft. Bowel tones present. EXTREMITIES: Without cyanosis. ASSESSMENT: 1. Persistent pneumonia. 2. Clostridium difficile colitis. 3. Acquired immunodeficiency syndrome with CD4 count of 156. 4. Vancomycin-resistant Enterococcus stool colonization. 5. Cirrhosis. PLAN: The patient remains stable. Pulmonary team on case. Repeat CT chest with persistent infiltrate, may need bronchoscopy. Continue abx, start Levaquin, hold Zithromax for now. Will dw pulmonary DW staff Problems: Consultation Date/Type/Reason Admit Date/Time Oct 25, 2016 at 21:43 Initial Consult Date 10/29/16 Type of Consultation: ID Exam/Review of Systems Vital Signs Vitals Vital Signs Date Time Temp Pulse Resp B/P Pulse Ox O2 Delivery O2 Flow Rate FiO2 11/03/16 11:16 97.8 84 16 108/71 92 11/02/16 20:00 Room Air Intake and Output 11/02/16 11/02/16 11/03/16 15:00 23:00 07:00 Intake Total 150 ml 1210 ml 640 ml Output Total 750 ml Balance 150 ml 1210 ml -110 ml Results Result Diagram: 11/01/16 0515 11/03/16 0455 Results 24 hrs Laboratory Tests Test 11/02/16 20:59 11/03/16 04:55 11/03/16 08:05 11/03/16 12:26 Bedside Glucose 88 86 84 Sodium Level 127 L Potassium Level 3.9 Chloride Level 103 Carbon Dioxide Level 20 L Anion Gap 8 Blood Urea Nitrogen 6 L Creatinine 0.66 Glucose Level 87 Calcium Level 7.3 L Test 11/03/16 17:35 Bedside Glucose 86 Medications Medications Current Medications Ondansetron HCl (Zofran Inj) 4 mg Q6H PRN IV NAUSEA AND/OR VOMITING; Start at 23:30 Magnesium Hydroxide (Milk Of Mag) 30 ml DAILY PRN PO CONSTIPATION; Start at 23:30 Famotidine (Pepcid) 20 mg DAILY PO Last administered on 11/03/16 09:26; Admin Dose 20 MG; Start 10/26/16 at 09:00 Enoxaparin Sodium (Lovenox) 40 mg DAILY SC Last administered on 11/03/16 09:34 ; Admin Dose 40 MG; Start 10/26/16 at 09:00 Diagnostic Test (Pha) (Accu-Chek) 1 ea 02 XX Last administered on 10/31/16 02: 00; Admin Dose 1 EA; Start 10/27/16 at 02:00 Miscellaneous Information 1 ea NOTE XX ; Start 10/26/16 at 16:00 Glucose (Glutose) 15 gm Q15M PRN PO DECREASED GLUCOSE; Start 10/26/16 at 16:00 Glucose (Glutose) 22.5 gm Q15M PRN PO DECREASED GLUCOSE; Start 10/26/16 at 16: 00 Dextrose (D50w Syringe) 25 ml Q15M PRN IV DECREASED GLUCOSE; Start 10/26/16 at 16:00 Dextrose (D50w Syringe) 50 ml Q15M PRN IV DECREASED GLUCOSE; Start 10/26/16 at 16:00 Glucagon (Glucagen) 1 mg Q15M PRN IM DECREASED GLUCOSE; Start 10/26/16 at 16:00 Glucose 15 gm 15 gm Q15M PRN BUCCAL DECREASED GLUCOSE; Start 10/26/16 at 16:00 Cefepime HCl 50 ml @ 100 mls/hr Q12 IVPB Last administered on 11/03/16 09:27; Admin Dose 100 MLS/HR; Start 10/26/16 at 21:00 Metronidazole (Flagyl 500 Mg (Pmx)) 100 ml @ 100 mls/hr Q8 IVPB Last administered on 11/03/16 15:18; Admin Dose 100 MLS/HR; Start 10/27/16 at 22:00 Citalopram Hydrobromide (Celexa) 20 mg DAILY PO Last administered on 11/03/16 09:26; Admin Dose 20 MG; Start 10/28/16 at 09:00 Emtricitabine/ Tenofovir (Truvada) 1 tab DAILY PO Last administered on 09:; Admin Dose 1 TAB; Start 10/27/16 at 18:00 Folic Acid (Folic Acid) 1 mg DAILY PO Last administered on 11/03/16 09:; Admin Dose 1 MG; Start 10/28/16 at 09:00 Gabapentin (Neurontin) 300 mg TID PO Last administered on 11/03/16 12:28; Admin Dose 300 MG; Start 10/27/16 at 21:00 Miscellaneous Medication (Isentress) 400 mg BID PO Last administered on 09:; Admin Dose 400 MG; Start 10/27/16 at 21:00 Acetaminophen/ Hydrocodone Bitart ([place] (5/325)) 1 tab Q4H PRN PO PAIN Last administered on 10/30/16 17:25; Admin Dose 1 TAB; Start 10/28/16 at 16:30 Trimethoprim/ Sulfamethoxazole (Bactrim (Ds)) 1 tab DAILY PO Last administered on 11/03/16 09:26; Admin Dose 1 TAB; Start 10/30/16 at 14:00 Azithromycin (Zithromax) 1,200 mg Q7D PO Last administered on 10/30/16 15:52; Admin Dose 1,200 MG; Start 10/30/16 at 15:00 Vancomycin HCl (Vancomycin Oral Syringe) 250 mg Q6 PO Last administered on 17:36; Admin Dose 250 MG; Start 11/01/16 at 12:00 Cholestyramine Resin (Questran) 1 pkt DAILY PO Last administered on 11/03/16 09 :27; Admin Dose 1 PKT; Start 11/01/16 at 12:00 Acyclovir (Zovirax) 400 mg DAILY PO Last administered on 11/03/16 09:26; Admin Dose 400 MG; Start 11/02/16 at 09:00 Fluconazole (Diflucan) 100 mg DAILY PO Last administered on 11/03/16 09:26; Admin Dose 100 MG; Start 11/02/16 at 09:00 Ciprofloxacin HCl 2 drop 2 drop BID BOTH EYES Last administered on 11/03/16 09: 27; Admin Dose 2 DROP; Start 11/01/16 at 12:30; Stop 11/06/16 at 12:29 Sodium Chloride (NS) 1,000 ml @ 50 mls/hr Q20H IV Last administered on 15:18; Admin Dose 50 MLS/HR; Start 11/03/16 at 15:00; Stop 11/05/16 at 06:59 MARIELOS OMALLEY NP November 03, 2016 19:34
[2016-11-03 20:18] VITALS: BP 94/61; RESP 18
[2016-11-04] MEDS: ACCUCHECK AT 2AM (Patients on SS coverage) XX SCH (02:00)
[2016-11-04] MEDS: metroNIDAZOLE 500 MG/NS (PMX) 100 ML IVPB SCH ×3 (05:20→23:03)
[2016-11-04] MEDS: LEVOFLOXACIN 500 MG TAB GTB SCH (05:20)
[2016-11-04] MEDS: VANCOMYCIN HCL 250 MG/5ML POSYG PO SCH ×4 (05:20→23:04)
[2016-11-04 06:24] LABS: CALCIUM 7.2 mg/dl (8.4-10.2); CREATININE 0.72 mg/dl (0.44-1.00); POTASSIUM 4.1 mmol/L (3.5-5.1)
[2016-11-04 07:37] VITALS: BP 101/62; RESP 18
[2016-11-04] MEDS: INSULIN ASPART [NOVOLOG] 3 ML PEN SC SCH ×4 (08:19→21:00)
[2016-11-04] MEDS: CIPROFLOXACIN 0.3% 2.5 ML OPH BOTH EYES SCH ×2 (09:36→22:05)
[2016-11-04] MEDS: CEFEPIME 1GM/50 ML (PMX) 50 ML IVPB SCH ×2 (09:37→22:06)
[2016-11-04] MEDS: FLUCONAZOLE 100 MG TAB PO SCH (09:39)
[2016-11-04] MEDS: TRIMETHOPRIM/SULFAMETHOX (DS) TAB PO SCH (09:39)
[2016-11-04] MEDS: FOLIC ACID 1 MG TAB PO SCH (09:39)
[2016-11-04] MEDS: RALTEGRAVIR 400 MG TAB PO SCH ×2 (09:39→22:05)
[2016-11-04] MEDS: ENOXAPARIN 40 MG/0.4 ML SYG SC SCH (09:39)
[2016-11-04] MEDS: CITALOPRAM 20 MG TAB PO SCH (09:39)
[2016-11-04] MEDS: EMTRICITABINE/TENOFOVIR TAB PO SCH (09:40)
[2016-11-04] MEDS: CHOLESTYRAMINE 4 GM PACKET PO SCH (09:40)
[2016-11-04] MEDS: FAMOTIDINE 20 MG TAB PO SCH (09:40)
[2016-11-04] MEDS: ACYCLOVIR 400 MG TAB PO SCH (09:40)
[2016-11-04] MEDS: GABAPENTIN 300 MG CAP PO SCH ×3 (09:40→22:05)
--- NOTE | 2016-11-04 12:01 | PN ---
Date/Time of Note Date/Time of Note DATE: 11/04/16 TIME: 11:59 Assessment/Plan VTE Prophylaxis VTE Prophylaxis Intervention: LMWH Lines/Catheters IV Catheter Type (from [facility]): [place] [facility] Urinary Cath still in place: No Assessment/Plan Assessment/Plan 1. Sepsis Shock 2/2 RUL pneumonia and/or C. difficile -Now off pressor support, IVF and abx - VRE in Stool CT chest showed persistent Infiltrates and bronchiectasis,ID recommended pulmonary to consider for bronchoscopy on IV cefepime, flaygyl, zovirax 2. Hx of HIV- resumed home meds, ID following 3.Hx of Subarachnoid hemorrhage and hydrocephalus - non-acute issue 4. History of stroke - Cont aspirin 5. hx of Hypertension 6. Cl difficle diarrhea, VRE in stool On IV abx as per ID d/c rectal tube Prophylaxis: Lovenox PT evaluation and treatment Na 127, IVF discontinued today imodium 2 mg pO x 1 dose given on 11/03/16- d/c rectal tube ID recommended pulmonary to evaluate for bronchoscopy due to persistent infiltrates on CT chest Subjective 24 Hr Interval Summary Free Text/Dictation repeat CT chest showed persistent Infiltrates and bronchiectasis,ID switched Abx to levaquin, d/tani azithromycin, recommended pulmonary to consider for bronchoscopy Exam/Review of Systems Vital Signs Vitals Vital Signs Date Time Temp Pulse Resp B/P Pulse Ox O2 Delivery O2 Flow Rate FiO2 11/04/16 07:37 97.6 86 18 101/62 95 11/02/16 20:00 Room Air Intake and Output 11/03/16 11/03/16 11/04/16 15:00 23:00 07:00 Intake Total 450 ml 1720 ml 1620 ml Output Total 800 ml 356 ml Balance 450 ml 920 ml 1264 ml Exam GENERAL: This is a well-developed, fragile, middle-aged woman who is awake, in no distress. HEENT: Head atraumatic, normocephalic. Sclerae anicteric. Buccal mucosa dry. NECK: Supple, trachea midline. CHEST: Rise symmetrical. Breath sounds diminished to bases. HEART: S1, S2. ABDOMEN: Soft, bowel tones present. EXTREMITIES: Without cyanosis. + rectal tube Results Result Diagram: 11/01/16 0515 11/04/16 0515 Results 24 hrs Laboratory Tests Test 11/03/16 12:26 11/03/16 17:35 11/03/16 22:23 11/04/16 05:15 Bedside Glucose 84 86 87 Sodium Level 127 L Potassium Level 4.1 Chloride Level 104 Carbon Dioxide Level 19 L Anion Gap 8 Blood Urea Nitrogen 9 Creatinine 0.72 Glucose Level 90 Calcium Level 7.2 L Magnesium Level 2.1 Test 11/04/16 08:11 11/04/16 09:36 Bedside Glucose 280 H Lab Scanned Report REFERENCE LAB Medications Medications Current Medications Ondansetron HCl (Zofran Inj) 4 mg Q6H PRN IV NAUSEA AND/OR VOMITING; Start at 23:30 Magnesium Hydroxide (Milk Of Mag) 30 ml DAILY PRN PO CONSTIPATION; Start at 23:30 Famotidine (Pepcid) 20 mg DAILY PO Last administered on 11/04/16 09:40; Admin Dose 20 MG; Start 10/26/16 at 09:00 Enoxaparin Sodium (Lovenox) 40 mg DAILY SC Last administered on 11/04/16 09:39 ; Admin Dose 40 MG; Start 10/26/16 at 09:00 Diagnostic Test (Pha) (Accu-Chek) 1 ea 02 XX Last administered on 10/31/16 02: 00; Admin Dose 1 EA; Start 10/27/16 at 02:00 Miscellaneous Information 1 ea NOTE XX ; Start 10/26/16 at 16:00 Glucose (Glutose) 15 gm Q15M PRN PO DECREASED GLUCOSE; Start 10/26/16 at 16:00 Glucose (Glutose) 22.5 gm Q15M PRN PO DECREASED GLUCOSE; Start 10/26/16 at 16: 00 Dextrose (D50w Syringe) 25 ml Q15M PRN IV DECREASED GLUCOSE; Start 10/26/16 at 16:00 Dextrose (D50w Syringe) 50 ml Q15M PRN IV DECREASED GLUCOSE; Start 10/26/16 at 16:00 Glucagon (Glucagen) 1 mg Q15M PRN IM DECREASED GLUCOSE; Start 10/26/16 at 16:00 Glucose 15 gm 15 gm Q15M PRN BUCCAL DECREASED GLUCOSE; Start 10/26/16 at 16:00 Cefepime HCl 50 ml @ 100 mls/hr Q12 IVPB Last administered on 11/04/16 09:37; Admin Dose 100 MLS/HR; Start 10/26/16 at 21:00 Metronidazole (Flagyl 500 Mg (Pmx)) 100 ml @ 100 mls/hr Q8 IVPB Last administered on 11/04/16 05:20; Admin Dose 100 MLS/HR; Start 10/27/16 at 22:00 Citalopram Hydrobromide (Celexa) 20 mg DAILY PO Last administered on 11/04/16 09:39; Admin Dose 20 MG; Start 10/28/16 at 09:00 Emtricitabine/ Tenofovir (Truvada) 1 tab DAILY PO Last administered on 09:40; Admin Dose 1 TAB; Start 10/27/16 at 18:00 Folic Acid (Folic Acid) 1 mg DAILY PO Last administered on 11/04/16 09:39; Admin Dose 1 MG; Start 10/28/16 at 09:00 Gabapentin (Neurontin) 300 mg TID PO Last administered on 11/04/16 09:40; Admin Dose 300 MG; Start 10/27/16 at 21:00 Miscellaneous Medication (Isentress) 400 mg BID PO Last administered on 09:39; Admin Dose 400 MG; Start 10/27/16 at 21:00 Acetaminophen/ Hydrocodone Bitart ([place] (5/325)) 1 tab Q4H PRN PO PAIN Last administered on 10/30/16 17:25; Admin Dose 1 TAB; Start 10/28/16 at 16:30 Trimethoprim/ Sulfamethoxazole (Bactrim (Ds)) 1 tab DAILY PO Last administered on 11/04/16 09:39; Admin Dose 1 TAB; Start 10/30/16 at 14:00 Azithromycin (Zithromax) 1,200 mg Q7D PO Last administered on 10/30/16 15:52; Admin Dose 1,200 MG; Start 10/30/16 at 15:00 Vancomycin HCl (Vancomycin Oral Syringe) 250 mg Q6 PO Last administered on 05:20; Admin Dose 250 MG; Start 11/01/16 at 12:00 Cholestyramine Resin (Questran) 1 pkt DAILY PO Last administered on 11/04/16 09 :40; Admin Dose 1 PKT; Start 11/01/16 at 12:00 Acyclovir (Zovirax) 400 mg DAILY PO Last administered on 11/04/16 09:40; Admin Dose 400 MG; Start 11/02/16 at 09:00 Fluconazole (Diflucan) 100 mg DAILY PO Last administered on 11/04/16 09:39; Admin Dose 100 MG; Start 11/02/16 at 09:00 Ciprofloxacin HCl 2 drop 2 drop BID BOTH EYES Last administered on 11/04/16 09: 36; Admin Dose 2 DROP; Start 11/01/16 at 12:30; Stop 11/06/16 at 12:29 Sodium Chloride (NS) 1,000 ml @ 50 mls/hr Q20H IV Last administered on 15:18; Admin Dose 50 MLS/HR; Start 11/03/16 at 15:00; Stop 11/05/16 at 06:59 Levofloxacin (Levaquin) 500 mg DAILY@06 GTB Last administered on 11/04/16 05:20 ; Admin Dose 500 MG; Start 11/04/16 at 06:00 PAULETTE JONES MD November 04, 2016 12:01
--- NOTE | 2016-11-04 13:54 | CONS ---
Date/Time of Note Date/Time of Note DATE: 11/04/16 TIME: 13:54 Consult Date/Type/Reason Admit Date/Time Oct 25, 2016 at 21:43 Initial Consult Date 10/29/16 Type of Consultation: pulmonary Subjective Patient remains stable no new events Neurologically unchanged Still has productive cough Objective Vital Signs Date Time Temp Pulse Resp B/P Pulse Ox O2 Delivery O2 Flow Rate FiO2 11/04/16 07:37 97.6 86 18 101/62 95 11/02/16 20:00 Room Air Intake and Output 11/03/16 11/03/16 11/04/16 15:00 23:00 07:00 Intake Total 450 ml 1720 ml 1620 ml Output Total 800 ml 356 ml Balance 450 ml 920 ml 1264 ml Exam Exam GENERAL: Elderly-appearing lady comfortable at rest VITAL SIGNS: per chart NECK: Supple. No JVD or lymphadenopathy. CARDIAC EXAM: S1, S2. No added sounds or murmurs. CHEST: clear bilaterally, No added sounds, rales or wheezes ABDOMEN: Soft, nontender. No guarding or rebound. EXTREMITIES: No cyanosis, clubbing or edema. NEUROLOGIC: Generalized weakness. No focal deficits. Results/Medications Result Diagram: 11/01/16 0515 11/04/16 0515 Results 24 hrs Laboratory Tests Test 11/03/16 17:35 11/03/16 22:23 11/04/16 05:15 11/04/16 08:11 Bedside Glucose 86 87 280 H Sodium Level 127 L Potassium Level 4.1 Chloride Level 104 Carbon Dioxide Level 19 L Anion Gap 8 Blood Urea Nitrogen 9 Creatinine 0.72 Glucose Level 90 Calcium Level 7.2 L Magnesium Level 2.1 Test 11/04/16 09:36 11/04/16 12:29 Lab Scanned Report REFERENCE LAB Bedside Glucose 83 Medications Current Medications Ondansetron HCl (Zofran Inj) 4 mg Q6H PRN IV NAUSEA AND/OR VOMITING; Start at 23:30 Magnesium Hydroxide (Milk Of Mag) 30 ml DAILY PRN PO CONSTIPATION; Start at 23:30 Famotidine (Pepcid) 20 mg DAILY PO Last administered on 11/04/16t 09:40; Admin Dose 20 MG; Start 10/26/16 at 09:00 Enoxaparin Sodium (Lovenox) 40 mg DAILY SC Last administered on 11/04/16 09:39 ; Admin Dose 40 MG; Start 10/26/16 at 09:00 Diagnostic Test (Pha) (Accu-Chek) 1 ea 02 XX Last administered on 10/31/16 02: 00; Admin Dose 1 EA; Start 10/27/16 at 02:00 Miscellaneous Information 1 ea NOTE XX ; Start 10/26/16 at 16:00 Glucose (Glutose) 15 gm Q15M PRN PO DECREASED GLUCOSE; Start 10/26/16 at 16:00 Glucose (Glutose) 22.5 gm Q15M PRN PO DECREASED GLUCOSE; Start 10/26/16 at 16: 00 Dextrose (D50w Syringe) 25 ml Q15M PRN IV DECREASED GLUCOSE; Start 10/26/16 at 16:00 Dextrose (D50w Syringe) 50 ml Q15M PRN IV DECREASED GLUCOSE; Start 10/26/16 at 16:00 Glucagon (Glucagen) 1 mg Q15M PRN IM DECREASED GLUCOSE; Start 10/26/16 at 16:00 Glucose 15 gm 15 gm Q15M PRN BUCCAL DECREASED GLUCOSE; Start 10/26/16 at 16:00 Cefepime HCl 50 ml @ 100 mls/hr Q12 IVPB Last administered on 11/04/16 09:37; Admin Dose 100 MLS/HR; Start 10/26/16 at 21:00 Metronidazole (Flagyl 500 Mg (Pmx)) 100 ml @ 100 mls/hr Q8 IVPB Last administered on 11/04/16 05:20; Admin Dose 100 MLS/HR; Start 10/27/16 at 22:00 Citalopram Hydrobromide (Celexa) 20 mg DAILY PO Last administered on 11/04/16 09:39; Admin Dose 20 MG; Start 10/28/16 at 09:00 Emtricitabine/ Tenofovir (Truvada) 1 tab DAILY PO Last administered on 09:40; Admin Dose 1 TAB; Start 10/27/16 at 18:00 Folic Acid (Folic Acid) 1 mg DAILY PO Last administered on 11/04/16 09:39; Admin Dose 1 MG; Start 10/28/16 at 09:00 Gabapentin (Neurontin) 300 mg TID PO Last administered on 11/04/16 12:37; Admin Dose 300 MG; Start 10/27/16 at 21:00 Miscellaneous Medication (Isentress) 400 mg BID PO Last administered on 09:39; Admin Dose 400 MG; Start 10/27/16 at 21:00 Acetaminophen/ Hydrocodone Bitart ([place] (5/325)) 1 tab Q4H PRN PO PAIN Last administered on 10/30/16 17:25; Admin Dose 1 TAB; Start 10/28/16 at 16:30 Trimethoprim/ Sulfamethoxazole (Bactrim (Ds)) 1 tab DAILY PO Last administered on 11/04/16 09:39; Admin Dose 1 TAB; Start 10/30/16 at 14:00 Azithromycin (Zithromax) 1,200 mg Q7D PO Last administered on 10/30/16 15:52; Admin Dose 1,200 MG; Start 10/30/16 at 15:00 Vancomycin HCl (Vancomycin Oral Syringe) 250 mg Q6 PO Last administered on 12:37; Admin Dose 250 MG; Start 11/01/16 at 12:00 Cholestyramine Resin (Questran) 1 pkt DAILY PO Last administered on 11/04/16 09 :40; Admin Dose 1 PKT; Start 11/01/16 at 12:00 Acyclovir (Zovirax) 400 mg DAILY PO Last administered on 11/04/16 09:40; Admin Dose 400 MG; Start 11/02/16 at 09:00 Fluconazole (Diflucan) 100 mg DAILY PO Last administered on 11/04/16 09:39; Admin Dose 100 MG; Start 11/02/16 at 09:00 Ciprofloxacin HCl 2 drop 2 drop BID BOTH EYES Last administered on 11/04/16 09: 36; Admin Dose 2 DROP; Start 11/01/16 at 12:30; Stop 11/06/16 at 12:29 Sodium Chloride (NS) 1,000 ml @ 50 mls/hr Q20H IV Last administered on 15:18; Admin Dose 50 MLS/HR; Start 11/03/16 at 15:00; Stop 11/05/16 at 06:59 Levofloxacin (Levaquin) 500 mg DAILY@06 GTB Last administered on 11/04/16 05:20 ; Admin Dose 500 MG; Start 11/04/16 at 06:00 Assessment/Plan Chief Complaint/Hosp Course Assessment 1. Right upper lobe pneumonia confirmed on repeat chest CT today it appears this pneumonia has never really resolved when reviewing prior chest CTs. Evidence of granulomatous disease. Persistent infiltrate concerning for opportunistic infection 2. C. difficile colitis 3. VRE 4. History of HIV immunodeficiency 5. Hyponatremia questionable SIAD[facility] Recommendations 1. Continue current antibiotics 2. Will probably need bronchoscopy with lavage and biopsies given persistent infection 3. Continue renal recommendations We'll try scheduled bronchoscopy in the next few days Problems: VÍCTOR HACKETT MD, [facility] November 04, 2016 13:54
--- NOTE | 2016-11-04 15:43 | CONS ---
Date/Time of Note Date/Time of Note DATE: 11/04/16 TIME: 15:42 Assessment/Plan Assessment/Plan Chief Complaint/Hosp Course SUBJECTIVE: No acute changes overnight. The patient is alert, comfortable on room air, no shortness of breath. No fevers. No labs this morning. ANTIMICROBIALS: She is on: 1. Oral fluconazole 100 mg daily. 2. Oral acyclovir 400 mg daily. 3. Oral vancomycin 250 mg q.6h. 4. Questran 1 packet daily. 5. Also on Zithromax 1200 mg weekly. 6. Bactrim 1 tablet p.o. daily. 7. Flagyl 500 mg q.8 hours. 8. Cefepime day 9. Levaquin 500 mg daily PHYSICAL EXAMINATION: GENERAL: Well-developed, middle-aged woman who is awake, in no distress. HEENT: Head atraumatic, normocephalic. Sclerae anicteric. Buccal mucosa pink. NECK: Supple, trachea midline. CHEST: Rise symmetrical. Breath sounds clear. HEART: S1, S2. ABDOMEN: Soft. Bowel tones present. EXTREMITIES: Without cyanosis. ASSESSMENT: 1. Persistent pneumonia. 2. Clostridium difficile colitis. 3. Acquired immunodeficiency syndrome with CD4 count of 156. 4. Vancomycin-resistant Enterococcus stool colonization. 5. Cirrhosis. PLAN: The patient remains stable. May need bronchoscopy per pulmonary rec-s. Continue abx [facility] staff Problems: Consultation Date/Type/Reason Admit Date/Time Oct 25, 2016 at 21:43 Initial Consult Date 10/29/16 Type of Consultation: id Exam/Review of Systems Vital Signs Vitals Vital Signs Date Time Temp Pulse Resp B/P Pulse Ox O2 Delivery O2 Flow Rate FiO2 11/04/16 07:37 97.6 86 18 101/62 95 11/02/16 20:00 Room Air Intake and Output 11/03/16 11/03/16 11/04/16 15:00 23:00 07:00 Intake Total 450 ml 1720 ml 1620 ml Output Total 800 ml 356 ml Balance 450 ml 920 ml 1264 ml Results Result Diagram: 11/01/16 0515 11/04/16 0515 Results 24 hrs Laboratory Tests Test 11/03/16 17:35 11/03/16 22:23 11/04/16 05:15 11/04/16 08:11 Bedside Glucose 86 87 280 H Sodium Level 127 L Potassium Level 4.1 Chloride Level 104 Carbon Dioxide Level 19 L Anion Gap 8 Blood Urea Nitrogen 9 Creatinine 0.72 Glucose Level 90 Calcium Level 7.2 L Magnesium Level 2.1 Test 11/04/16 09:36 11/04/16 12:29 Lab Scanned Report REFERENCE LAB Bedside Glucose 83 Medications Medications Current Medications Ondansetron HCl (Zofran Inj) 4 mg Q6H PRN IV NAUSEA AND/OR VOMITING; Start at 23:30 Magnesium Hydroxide (Milk Of Mag) 30 ml DAILY PRN PO CONSTIPATION; Start at 23:30 Famotidine (Pepcid) 20 mg DAILY PO Last administered on 11/04/16 09:40; Admin Dose 20 MG; Start 10/26/16 at 09:00 Enoxaparin Sodium (Lovenox) 40 mg DAILY SC Last administered on 11/04/16 09:39 ; Admin Dose 40 MG; Start 10/26/16 at 09:00 Diagnostic Test (Pha) (Accu-Chek) 1 ea 02 XX Last administered on 10/31/16 02: 00; Admin Dose 1 EA; Start 10/27/16 at 02:00 Miscellaneous Information 1 ea NOTE XX ; Start 10/26/16 at 16:00 Glucose (Glutose) 15 gm Q15M PRN PO DECREASED GLUCOSE; Start 10/26/16 at 16:00 Glucose (Glutose) 22.5 gm Q15M PRN PO DECREASED GLUCOSE; Start 10/26/16 at 16: 00 Dextrose (D50w Syringe) 25 ml Q15M PRN IV DECREASED GLUCOSE; Start 10/26/16 at 16:00 Dextrose (D50w Syringe) 50 ml Q15M PRN IV DECREASED GLUCOSE; Start 10/26/16 at 16:00 Glucagon (Glucagen) 1 mg Q15M PRN IM DECREASED GLUCOSE; Start 10/26/16 at 16:00 Glucose 15 gm 15 gm Q15M PRN BUCCAL DECREASED GLUCOSE; Start 10/26/16 at 16:00 Cefepime HCl 50 ml @ 100 mls/hr Q12 IVPB Last administered on 11/04/16 09:37; Admin Dose 100 MLS/HR; Start 10/26/16 at 21:00 Metronidazole (Flagyl 500 Mg (Pmx)) 100 ml @ 100 mls/hr Q8 IVPB Last administered on 11/04/16 14:28; Admin Dose 100 MLS/HR; Start 10/27/16 at 22:00 Citalopram Hydrobromide (Celexa) 20 mg DAILY PO Last administered on 11/04/16 09:39; Admin Dose 20 MG; Start 10/28/16 at 09:00 Emtricitabine/ Tenofovir (Truvada) 1 tab DAILY PO Last administered on 09:40; Admin Dose 1 TAB; Start 10/27/16 at 18:00 Folic Acid (Folic Acid) 1 mg DAILY PO Last administered on 11/04/16 09:39; Admin Dose 1 MG; Start 10/28/16 at 09:00 Gabapentin (Neurontin) 300 mg TID PO Last administered on 11/04/16 12:37; Admin Dose 300 MG; Start 10/27/16 at 21:00 Miscellaneous Medication (Isentress) 400 mg BID PO Last administered on 09:39; Admin Dose 400 MG; Start 10/27/16 at 21:00 Acetaminophen/ Hydrocodone Bitart ([place] (5/325)) 1 tab Q4H PRN PO PAIN Last administered on 10/30/16 17:25; Admin Dose 1 TAB; Start 10/28/16 at 16:30 Trimethoprim/ Sulfamethoxazole (Bactrim (Ds)) 1 tab DAILY PO Last administered on 11/04/16 09:39; Admin Dose 1 TAB; Start 10/30/16 at 14:00 Azithromycin (Zithromax) 1,200 mg Q7D PO Last administered on 10/30/16 15:52; Admin Dose 1,200 MG; Start 10/30/16 at 15:00 Vancomycin HCl (Vancomycin Oral Syringe) 250 mg Q6 PO Last administered on 12:37; Admin Dose 250 MG; Start 11/01/16 at 12:00 Cholestyramine Resin (Questran) 1 pkt DAILY PO Last administered on 11/04/16 09 :40; Admin Dose 1 PKT; Start 11/01/16 at 12:00 Acyclovir (Zovirax) 400 mg DAILY PO Last administered on 11/04/16 09:40; Admin Dose 400 MG; Start 5/5/17 at 09:00 Fluconazole (Diflucan) 100 mg DAILY PO Last administered on 11/04/16 09:39; Admin Dose 100 MG; Start 11/02/16 at 09:00 Ciprofloxacin HCl 2 drop 2 drop BID BOTH EYES Last administered on 11/04/16 09: 36; Admin Dose 2 DROP; Start 11/01/16 at 12:30; Stop 11/06/16 at 12:29 Sodium Chloride (NS) 1,000 ml @ 50 mls/hr Q20H IV Last administered on 15:18; Admin Dose 50 MLS/HR; Start 11/03/16 at 15:00; Stop 11/05/16 at 06:59 Levofloxacin (Levaquin) 500 mg DAILY@06 GTB Last administered on 11/04/16 05:20 ; Admin Dose 500 MG; Start 11/04/16 at 06:00 MARIELOS OMALLEY NP November 04, 2016 15:43
[2016-11-04] MEDS: SOD CHLORIDE 0.9% 1,000 ML IV SCH (17:31)
[2016-11-04 19:51] VITALS: BP 91/55; RESP 18
[2016-11-05] VITALS (7 sets, daily range): BP systolic 84–103; BP diastolic 51–63; PULSE 75–81; RESP 16–18
[2016-11-05] MEDS: ACCUCHECK AT 2AM (Patients on SS coverage) XX SCH (02:00)
[2016-11-05] MEDS: LEVOFLOXACIN 500 MG TAB GTB SCH (05:16)
[2016-11-05] MEDS: metroNIDAZOLE 500 MG/NS (PMX) 100 ML IVPB SCH ×3 (05:17→21:44)
[2016-11-05] MEDS: VANCOMYCIN HCL 250 MG/5ML POSYG PO SCH ×3 (05:17→17:37)
[2016-11-05 05:27] LABS: ADD SCAN DIFF NO
[2016-11-05 06:03] LABS: BASOPHILS % 0.2 % (0.0-2.0); EOSINOPHILS % 0.2 % (0.0-7.0); HEMATOCRIT 36.1 % (37.0-47.0); HEMOGLOBIN 12.2 g/dl (12.0-16.0); LYMPHOCYTES # 1.3 10^3/ul (0.8-2.9); LYMPHOCYTES % 27.4 % (15.0-51.0); MEAN CORPUSCULAR HEMOGLOBIN 32.2 pg (29.0-33.0); MEAN CORPUSCULAR HGB CONC 33.8 g/dl (32.0-37.0); MEAN CORPUSCULAR VOLUME 95.3 fl (82.0-101.0); MEAN PLATELET VOLUME 9.2 fl (7.4-10.4); MONOCYTE # 0.3 10^3/ul (0.3-0.9); NEUTROPHIL # 3.1 10^3/ul (1.6-7.5); NEUTROPHILS % 65.3 % (39.0-77.0); PLATELET COUNT 257 10^3/UL (140-415); RED BLOOD COUNT 3.79 10^6/ul (4.20-5.40); RED CELL DISTRIBUTION WIDTH 16.1 % (11.5-14.5); WHITE BLOOD COUNT 4.7 10^3/ul (4.8-10.8)
[2016-11-05 06:04] LABS: ALBUMIN/GLOBULIN RATIO 0.64; CREATININE 0.7 mg/dl (0.44-1.00); TOTAL PROTEIN 5.1 g/dl (6.1-8.1)
[2016-11-05 06:05] LABS: CALCIUM 7.2 mg/dl (8.4-10.2)
[2016-11-05 06:08] LABS: INR 1.34; PROTIME 16.7 Sec (12.2-14.2); PT RATIO 1.3
[2016-11-05 06:09] LABS: PARTIAL THROMBOPLASTIN TIME 37.6 Sec (25.0-35.0)
[2016-11-05] MEDS ORDERED: SOD CHLORIDE 0.9% 500 ML IV ONE (07:00)
[2016-11-05] MEDS: INSULIN ASPART [NOVOLOG] 3 ML PEN SC SCH ×4 (08:15→20:24)
[2016-11-05] MEDS: ENOXAPARIN 40 MG/0.4 ML SYG SC SCH (08:44)
[2016-11-05] MEDS: CHOLESTYRAMINE 4 GM PACKET PO SCH (08:45)
[2016-11-05] MEDS: EMTRICITABINE/TENOFOVIR TAB PO SCH (08:45)
[2016-11-05] MEDS: RALTEGRAVIR 400 MG TAB PO SCH ×2 (08:46→20:23)
[2016-11-05] MEDS: CITALOPRAM 20 MG TAB PO SCH (08:47)
[2016-11-05] MEDS: ACYCLOVIR 400 MG TAB PO SCH (08:47)
[2016-11-05] MEDS: FLUCONAZOLE 100 MG TAB PO SCH (08:48)
[2016-11-05] MEDS: GABAPENTIN 300 MG CAP PO SCH ×3 (08:48→20:23)
[2016-11-05] MEDS: FAMOTIDINE 20 MG TAB PO SCH (08:49)
[2016-11-05] MEDS: FOLIC ACID 1 MG TAB PO SCH (08:49)
[2016-11-05] MEDS: TRIMETHOPRIM/SULFAMETHOX (DS) TAB PO SCH (08:49)
[2016-11-05] MEDS: CIPROFLOXACIN 0.3% 2.5 ML OPH BOTH EYES SCH ×2 (08:50→20:23)
[2016-11-05] MEDS: CEFEPIME 1GM/50 ML (PMX) 50 ML IVPB SCH (08:50)
--- NOTE | 2016-11-05 11:49 | CONS ---
Date/Time of Note Date/Time of Note DATE: 11/05/16 TIME: 11:47 Assessment/Plan Assessment/Plan Additional Assessment/Plan Assessment recommendations; next 1. Patient admitted with pneumonia with significant clinical improvement. 2. HIV positive, 3. Chronic appearing fibrotic changes involving right upper lobe. Currently no suspicion of any opportunistic infection. 4. History of intracranial bleed, hydrocephalus. Patient can be discharged home off antibiotics. However she needs to be maintained on Bactrim for prophylaxis. We will sign off. Thanks for the referral. Consultation Date/Type/Reason Admit Date/Time Oct 25, 2016 at 21:43 Initial Consult Date 10/29/16 Type of Consultation: Pulmonary 24 HR Interval Summary Free Text/Dictation Patient condition stable. Denies any shortness of breath, cough, sputum production or any fever or chills. General exam; elderly woman, awake alert currently in no distress. Exam/Review of Systems Vital Signs Vitals Vital Signs Date Time Temp Pulse Resp B/P Pulse Ox O2 Delivery O2 Flow Rate FiO2 11/05/16 10:49 75 16 103/63 93 Nasal Cannula 2.0 11/05/16 08:09 97.6 Intake and Output 11/04/16 11/04/16 11/05/16 15:00 23:00 07:00 Intake Total 1430 ml 1180 ml Output Total 600 ml 120 ml Balance 830 ml 1060 ml Exam HEENT exam is; supple neck, no JVD. No lymphadenopathy. Midline trachea. No thyromegaly. Pharynx is clear. No thrush. Chest examination; clear to auscultation. S1-S2 audible, no murmurs. Regular rhythm. Abdomen examination; soft, non-distended. No organomegaly. Bowel sounds audible. Extremity examination; no peripheral edema. [employer]IST examination; no focal deficit. Results Result Diagram: 11/05/16 0503 11/05/16 0503 Results 24 hrs Laboratory Tests Test 11/04/16 12:29 11/04/16 17:15 11/04/16 22:10 11/05/16 05:03 Bedside Glucose 83 86 91 White Blood Count 4.7 #L Red Blood Count 3.79 L Hemoglobin 12.2 Hematocrit 36.1 L Mean Corpuscular Volume 95.3 Mean Corpuscular Hemoglobin 32.2 Mean Corpuscular Hemoglobin Concent 33.8 Red Cell Distribution Width 16.1 H Platelet Count 257 Mean Platelet Volume 9.2 Neutrophils % 65.3 Lymphocytes % 27.4 Monocytes % 6.0 Eosinophils % 0.2 Basophils % 0.2 Nucleated Red Blood Cells % 0.0 Neutrophils # 3.1 Lymphocytes # 1.3 Monocytes # 0.3 Eosinophils # 0.0 Basophils # 0.0 Nucleated Red Blood Cells # 0.0 Prothrombin Time 16.7 H Prothrombin Time Ratio 1.3 INR International Normalized Ratio 1.34 Activated Partial Thromboplast Time 37.6 H Sodium Level 129 L Potassium Level 4.0 Chloride Level 101 Carbon Dioxide Level 21 Anion Gap 11 Blood Urea Nitrogen 8 Creatinine 0.70 Glucose Level 76 Calcium Level 7.2 L Total Bilirubin 0.0 L Direct Bilirubin 0.00 Indirect Bilirubin 0.0 Aspartate Amino Transf (AST/SGOT) 12 L Alanine Aminotransferase (ALT/SGPT) 26 Alkaline Phosphatase 49 Total Protein 5.1 L Albumin 2.0 L Globulin 3.10 Albumin/Globulin Ratio 0.64 Test 11/05/16 08:43 Bedside Glucose 82 Medications Medications Current Medications Ondansetron HCl (Zofran Inj) 4 mg Q6H PRN IV NAUSEA AND/OR VOMITING; Start at 23:30 Magnesium Hydroxide (Milk Of Mag) 30 ml DAILY PRN PO CONSTIPATION; Start at 23:30 Famotidine (Pepcid) 20 mg DAILY PO Last administered on 11/05/16 08:49; Admin Dose 20 MG; Start 10/26/16 at 09:00 Enoxaparin Sodium (Lovenox) 40 mg DAILY SC Last administered on 11/05/16 08:44 ; Admin Dose 40 MG; Start 10/26/16 at 09:00 Diagnostic Test (Pha) (Accu-Chek) 1 ea 02 XX Last administered on 10/31/16 02: 00; Admin Dose 1 EA; Start 10/27/16 at 02:00 Miscellaneous Information 1 ea NOTE XX ; Start 10/26/16 at 16:00 Glucose (Glutose) 15 gm Q15M PRN PO DECREASED GLUCOSE; Start 10/26/16 at 16:00 Glucose (Glutose) 22.5 gm Q15M PRN PO DECREASED GLUCOSE; Start 10/26/16 at 16: 00 Dextrose (D50w Syringe) 25 ml Q15M PRN IV DECREASED GLUCOSE; Start 10/26/16 at 16:00 Dextrose (D50w Syringe) 50 ml Q15M PRN IV DECREASED GLUCOSE; Start 10/26/16 at 16:00 Glucagon (Glucagen) 1 mg Q15M PRN IM DECREASED GLUCOSE; Start 10/26/16 at 16:00 Glucose 15 gm 15 gm Q15M PRN BUCCAL DECREASED GLUCOSE; Start 10/26/16 at 16:00 Cefepime HCl 50 ml @ 100 mls/hr Q12 IVPB Last administered on 11/05/16 08:50; Admin Dose 100 MLS/HR; Start 10/26/16 at 21:00 Metronidazole (Flagyl 500 Mg (Pmx)) 100 ml @ 100 mls/hr Q8 IVPB Last administered on 11/05/16 05:17; Admin Dose 100 MLS/HR; Start 10/27/16 at 22:00 Citalopram Hydrobromide (Celexa) 20 mg DAILY PO Last administered on 11/05/16 08:47; Admin Dose 20 MG; Start 10/28/16 at 09:00 Emtricitabine/ Tenofovir (Truvada) 1 tab DAILY PO Last administered on 08:45; Admin Dose 1 TAB; Start 10/27/16 at 18:00 Folic Acid (Folic Acid) 1 mg DAILY PO Last administered on 11/05/16 08:49; Admin Dose 1 MG; Start 10/28/16 at 09:00 Gabapentin (Neurontin) 300 mg TID PO Last administered on 11/05/16 08:48; Admin Dose 300 MG; Start 10/27/16 at 21:00 Miscellaneous Medication (Isentress) 400 mg BID PO Last administered on 08:46; Admin Dose 400 MG; Start 10/27/16 at 21:00 Acetaminophen/ Hydrocodone Bitart ([place] (5/325)) 1 tab Q4H PRN PO PAIN Last administered on 10/30/16 17:25; Admin Dose 1 TAB; Start 10/28/16 at 16:30 Trimethoprim/ Sulfamethoxazole (Bactrim (Ds)) 1 tab DAILY PO Last administered on 11/05/16 08:49; Admin Dose 1 TAB; Start 10/30/16 at 14:00 Azithromycin (Zithromax) 1,200 mg Q7D PO Last administered on 10/30/16 15:52; Admin Dose 1,200 MG; Start 10/30/16 at 15:00 Vancomycin HCl (Vancomycin Oral Syringe) 250 mg Q6 PO Last administered on 05:17; Admin Dose 250 MG; Start 11/01/16 at 12:00 Cholestyramine Resin (Questran) 1 pkt DAILY PO Last administered on 11/05/16 08 :45; Admin Dose 1 PKT; Start 11/01/16 at 12:00 Acyclovir (Zovirax) 400 mg DAILY PO Last administered on 11/05/16 08:47; Admin Dose 400 MG; Start 11/02/16 at 09:00 Fluconazole (Diflucan) 100 mg DAILY PO Last administered on 11/05/16 08:48; Admin Dose 100 MG; Start 11/02/16 at 09:00 Ciprofloxacin HCl (Ciloxan 0.3% Oph) 2 drop BID BOTH EYES Last administered on 11/05/16 08:50; Admin Dose 2 DROP; Start 11/01/16 at 12:30; Stop 11/06/16 at 12:29 Levofloxacin (Levaquin) 500 mg DAILY@06 GTB Last administered on 11/05/16 05:16 ; Admin Dose 500 MG; Start 11/04/16 at 06:00 MADDIE CUEVAS November 05, 2016 11:49
--- NOTE | 2016-11-05 13:19 | CONS ---
Date/Time of Note Date/Time of Note DATE: 11/05/16 TIME: 13:17 Assessment/Plan Assessment/Plan Chief Complaint/Hosp Course SUBJECTIVE: No acute changes overnight. The patient is alert, comfortable on room air, no shortness of breath. No fevers. ANTIMICROBIALS: She is on: 1. Oral fluconazole 100 mg daily. 2. Oral acyclovir 400 mg daily. 3. Oral vancomycin 250 mg q.6h. 4. Questran 1 packet daily. 5. Also on Zithromax 1200 mg weekly. 6. Bactrim 1 tablet p.o. daily. 7. Flagyl 500 mg q.8 hours. 8. Cefepime day 9. Levaquin 500 mg daily PHYSICAL EXAMINATION: GENERAL: Well-developed, middle-aged woman who is awake, in no distress. HEENT: Head atraumatic, normocephalic. Sclerae anicteric. Buccal mucosa pink. NECK: Supple, trachea midline. CHEST: Rise symmetrical. Breath sounds clear. HEART: S1, S2. ABDOMEN: Soft. Bowel tones present. EXTREMITIES: Without cyanosis. ASSESSMENT: 1. Persistent pneumonia. 2. Clostridium difficile colitis. 3. Acquired immunodeficiency syndrome with CD4 count of 156. 4. Vancomycin-resistant Enterococcus stool colonization. 5. Cirrhosis. PLAN: The patient remains stable. As per DW Dr Marni JOHNSON had been treated, anticipate dc on oral Vanco for 4-5 weeks, Bactrim DS daily, weekly Zithromax 1200 mg, oral Diflucan and acyclovir daily, continue HURST, f/u with HIV clinic [facility] staff Problems: Consultation Date/Type/Reason Admit Date/Time Oct 25, 2016 at 21:43 Initial Consult Date 10/29/16 Type of Consultation: id Exam/Review of Systems Vital Signs Vitals Vital Signs Date Time Temp Pulse Resp B/P Pulse Ox O2 Delivery O2 Flow Rate FiO2 11/05/16 10:49 75 16 103/63 93 Nasal Cannula 2.0 11/05/16 08:09 97.6 Intake and Output 11/04/16 11/04/16 11/05/16 15:00 23:00 07:00 Intake Total 1430 ml 1180 ml Output Total 600 ml 120 ml Balance 830 ml 1060 ml Results Result Diagram: 11/05/16 0503 11/05/16 0503 Results 24 hrs Laboratory Tests Test 11/04/16 17:15 11/04/16 22:10 11/05/16 05:03 11/05/16 08:43 Bedside Glucose 86 91 82 White Blood Count 4.7 #L Red Blood Count 3.79 L Hemoglobin 12.2 Hematocrit 36.1 L Mean Corpuscular Volume 95.3 Mean Corpuscular Hemoglobin 32.2 Mean Corpuscular Hemoglobin Concent 33.8 Red Cell Distribution Width 16.1 H Platelet Count 257 Mean Platelet Volume 9.2 Neutrophils % 65.3 Lymphocytes % 27.4 Monocytes % 6.0 Eosinophils % 0.2 Basophils % 0.2 Nucleated Red Blood Cells % 0.0 Neutrophils # 3.1 Lymphocytes # 1.3 Monocytes # 0.3 Eosinophils # 0.0 Basophils # 0.0 Nucleated Red Blood Cells # 0.0 Prothrombin Time 16.7 H Prothrombin Time Ratio 1.3 INR International Normalized Ratio 1.34 Activated Partial Thromboplast Time 37.6 H Sodium Level 129 L Potassium Level 4.0 Chloride Level 101 Carbon Dioxide Level 21 Anion Gap 11 Blood Urea Nitrogen 8 Creatinine 0.70 Glucose Level 76 Calcium Level 7.2 L Total Bilirubin 0.0 L Direct Bilirubin 0.00 Indirect Bilirubin 0.0 Aspartate Amino Transf (AST/SGOT) 12 L Alanine Aminotransferase (ALT/SGPT) 26 Alkaline Phosphatase 49 Total Protein 5.1 L Albumin 2.0 L Globulin 3.10 Albumin/Globulin Ratio 0.64 Test 11/05/16 12:28 Bedside Glucose 80 Medications Medications Current Medications Ondansetron HCl (Zofran Inj) 4 mg Q6H PRN IV NAUSEA AND/OR VOMITING; Start at 23:30 Magnesium Hydroxide (Milk Of Mag) 30 ml DAILY PRN PO CONSTIPATION; Start at 23:30 Famotidine (Pepcid) 20 mg DAILY PO Last administered on 11/05/16 08:49; Admin Dose 20 MG; Start 10/26/16 at 09:00 Enoxaparin Sodium (Lovenox) 40 mg DAILY SC Last administered on 11/05/16 08:44 ; Admin Dose 40 MG; Start 10/26/16 at 09:00 Diagnostic Test (Pha) (Accu-Chek) 1 ea 02 XX Last administered on 10/31/16 02: 00; Admin Dose 1 EA; Start 10/27/16 at 02:00 Miscellaneous Information 1 ea NOTE XX ; Start 10/26/16 at 16:00 Glucose (Glutose) 15 gm Q15M PRN PO DECREASED GLUCOSE; Start 10/26/16 at 16:00 Glucose (Glutose) 22.5 gm Q15M PRN PO DECREASED GLUCOSE; Start 10/26/16 at 16: 00 Dextrose (D50w Syringe) 25 ml Q15M PRN IV DECREASED GLUCOSE; Start 10/26/16 at 16:00 Dextrose (D50w Syringe) 50 ml Q15M PRN IV DECREASED GLUCOSE; Start 10/26/16 at 16:00 Glucagon (Glucagen) 1 mg Q15M PRN IM DECREASED GLUCOSE; Start 10/26/16 at 16:00 Glucose 15 gm 15 gm Q15M PRN BUCCAL DECREASED GLUCOSE; Start 10/26/16 at 16:00 Cefepime HCl 50 ml @ 100 mls/hr Q12 IVPB Last administered on 11/05/16 08:50; Admin Dose 100 MLS/HR; Start 10/26/16 at 21:00 Metronidazole (Flagyl 500 Mg (Pmx)) 100 ml @ 100 mls/hr Q8 IVPB Last administered on 11/05/16 05:17; Admin Dose 100 MLS/HR; Start 10/27/16 at 22:00 Citalopram Hydrobromide (Celexa) 20 mg DAILY PO Last administered on 11/05/16 08:47; Admin Dose 20 MG; Start 10/28/16 at 09:00 Emtricitabine/ Tenofovir (Truvada) 1 tab DAILY PO Last administered on 08:45; Admin Dose 1 TAB; Start 10/27/16 at 18:00 Folic Acid (Folic Acid) 1 mg DAILY PO Last administered on 11/05/16 08:49; Admin Dose 1 MG; Start 10/28/16 at 09:00 Gabapentin (Neurontin) 300 mg TID PO Last administered on 11/05/16 12:28; Admin Dose 300 MG; Start 10/27/16 at 21:00 Miscellaneous Medication (Isentress) 400 mg BID PO Last administered on 08:46; Admin Dose 400 MG; Start 10/27/16 at 21:00 Acetaminophen/ Hydrocodone Bitart ([place] (5/325)) 1 tab Q4H PRN PO PAIN Last administered on 10/30/16 17:25; Admin Dose 1 TAB; Start 10/28/16 at 16:30 Trimethoprim/ Sulfamethoxazole (Bactrim (Ds)) 1 tab DAILY PO Last administered on 11/05/16 08:49; Admin Dose 1 TAB; Start 10/30/16 at 14:00 Azithromycin (Zithromax) 1,200 mg Q7D PO Last administered on 10/30/16 15:52; Admin Dose 1,200 MG; Start 10/30/16 at 15:00 Vancomycin HCl (Vancomycin Oral Syringe) 250 mg Q6 PO Last administered on 12:28; Admin Dose 250 MG; Start 11/01/16 at 12:00 Cholestyramine Resin (Questran) 1 pkt DAILY PO Last administered on 11/05/16 08 :45; Admin Dose 1 PKT; Start 11/01/16 at 12:00 Acyclovir (Zovirax) 400 mg DAILY PO Last administered on 11/05/16 08:47; Admin Dose 400 MG; Start 11/02/16 at 09:00 Fluconazole (Diflucan) 100 mg DAILY PO Last administered on 11/05/16 08:48; Admin Dose 100 MG; Start 11/02/16 at 09:00 Ciprofloxacin HCl (Ciloxan 0.3% Oph) 2 drop BID BOTH EYES Last administered on 11/05/16 08:50; Admin Dose 2 DROP; Start 11/01/16 at 12:30; Stop 11/06/16 at 12:29 Levofloxacin (Levaquin) 500 mg DAILY@06 GTB Last administered on 11/05/16 05:16 ; Admin Dose 500 MG; Start 11/04/16 at 06:00 MARIELOS OMALLEY NP November 05, 2016 13:19
--- NOTE | 2016-11-05 15:32 | PN ---
Date/Time of Note Date/Time of Note DATE: 11/05/16 TIME: 15:30 Assessment/Plan VTE Prophylaxis VTE Prophylaxis Intervention: SCD's Lines/Catheters IV [facility]from [facility] Urinary Cath still in place: No Assessment/Plan Chief Complaint/Hosp Course Assessment/Plan 1. Sepsis Shock 2/2 RUL pneumonia and/or C. difficile -Now off pressor support, IVF and abx - VRE in Stool CT chest showed persistent Infiltrates and bronchiectasis, patient has been clear as per pulmonary on IV cefepime, flaygyl, zovirax 2. Hx of HIV- resumed home meds, ID following 3.Hx of Subarachnoid hemorrhage and hydrocephalus - non-acute issue 4. History of stroke - Cont aspirin 5. hx of Hypertension 6. Cl difficle diarrhea, VRE in stool On IV abx as per ID d/c rectal tube Prophylaxis: Lovenox PT evaluation and treatment Na 127, IVF discontinued today imodium 2 mg pO x 1 dose given on 11/03/16- d/c rectal tube Patient is clear as pulmonology standpoint for discharge Plan to discharge home tomorrow with recommendation of antibiotics as per infectious disease Problems: Subjective 24 Hr Interval Summary Free Text/Dictation Denies of any chest pain or shortness of breath Continue to have diarrhea Tolerating oral intake Exam/Review of Systems Vital Signs Vitals Vital Signs Date Time Temp Pulse Resp B/P Pulse Ox O2 Delivery O2 Flow Rate FiO2 11/05/16 10:49 75 16 103/63 93 Nasal Cannula 2.0 11/05/16 08:09 97.6 Intake and Output 11/04/16 11/04/16 11/05/16 15:00 23:00 07:00 Intake Total 1430 ml 1180 ml Output Total 600 ml 120 ml Balance 830 ml 1060 ml Exam General: The patient is well-developed, Not in acute distress. HEENT: Atraumatic, normocephalic. The pupils are equal and round . Neck: Supple with full range of motion. Chest: Normal expansion of the thorax during inspiration Lungs: Clear to auscultation bilaterally Heart: Normal S1-S2, Regular rhythm and rate. Abdomen: Soft , nontender, nondistended , bowel sounds are present. Extremities: Normal to inspection, no edema no cyanosis Neurologic: Normal mental status,The patient is awake, alert and oriented . Results Result Diagram: 11/05/16 0503 11/05/16 0503 Results 24 hrs Laboratory Tests Test 11/04/16 17:15 11/04/16 22:10 11/05/16 05:03 11/05/16 08:43 Bedside Glucose 86 91 82 White Blood Count 4.7 #L Red Blood Count 3.79 L Hemoglobin 12.2 Hematocrit 36.1 L Mean Corpuscular Volume 95.3 Mean Corpuscular Hemoglobin 32.2 Mean Corpuscular Hemoglobin Concent 33.8 Red Cell Distribution Width 16.1 H Platelet Count 257 Mean Platelet Volume 9.2 Neutrophils % 65.3 Lymphocytes % 27.4 Monocytes % 6.0 Eosinophils % 0.2 Basophils % 0.2 Nucleated Red Blood Cells % 0.0 Neutrophils # 3.1 Lymphocytes # 1.3 Monocytes # 0.3 Eosinophils # 0.0 Basophils # 0.0 Nucleated Red Blood Cells # 0.0 Prothrombin Time 16.7 H Prothrombin Time Ratio 1.3 INR International Normalized Ratio 1.34 Activated Partial Thromboplast Time 37.6 H Sodium Level 129 L Potassium Level 4.0 Chloride Level 101 Carbon Dioxide Level 21 Anion Gap 11 Blood Urea Nitrogen 8 Creatinine 0.70 Glucose Level 76 Calcium Level 7.2 L Total Bilirubin 0.0 L Direct Bilirubin 0.00 Indirect Bilirubin 0.0 Aspartate Amino Transf (AST/SGOT) 12 L Alanine Aminotransferase (ALT/SGPT) 26 Alkaline Phosphatase 49 Total Protein 5.1 L Albumin 2.0 L Globulin 3.10 Albumin/Globulin Ratio 0.64 Test 11/05/16 12:28 Bedside Glucose 80 Medications Medications Current Medications Ondansetron HCl (Zofran Inj) 4 mg Q6H PRN IV NAUSEA AND/OR VOMITING; Start at 23:30 Magnesium Hydroxide (Milk Of Mag) 30 ml DAILY PRN PO CONSTIPATION; Start at 23:30 Famotidine (Pepcid) 20 mg DAILY PO Last administered on 11/05/16 08:49; Admin Dose 20 MG; Start 10/26/16 at 09:00 Enoxaparin Sodium (Lovenox) 40 mg DAILY SC Last administered on 11/05/16 08:44 ; Admin Dose 40 MG; Start 10/26/16 at 09:00 Diagnostic Test (Pha) (Accu-Chek) 1 ea 02 XX Last administered on 10/31/16 02: 00; Admin Dose 1 EA; Start 10/27/16 at 02:00 Miscellaneous Information 1 ea NOTE XX ; Start 10/26/16 at 16:00 Glucose (Glutose) 15 gm Q15M PRN PO DECREASED GLUCOSE; Start 10/26/16 at 16:00 Glucose (Glutose) 22.5 gm Q15M PRN PO DECREASED GLUCOSE; Start 10/26/16 at 16: 00 Dextrose (D50w Syringe) 25 ml Q15M PRN IV DECREASED GLUCOSE; Start 10/26/16 at 16:00 Dextrose (D50w Syringe) 50 ml Q15M PRN IV DECREASED GLUCOSE; Start 10/26/16 at 16:00 Glucagon (Glucagen) 1 mg Q15M PRN IM DECREASED GLUCOSE; Start 10/26/16 at 16:00 Glucose 15 gm 15 gm Q15M PRN BUCCAL DECREASED GLUCOSE; Start 10/26/16 at 16:00 Metronidazole (Flagyl 500 Mg (Pmx)) 100 ml @ 100 mls/hr Q8 IVPB Last administered on 11/05/16 14:53; Admin Dose 100 MLS/HR; Start 10/27/16 at 22:00 Citalopram Hydrobromide (Celexa) 20 mg DAILY PO Last administered on 11/05/16 08:47; Admin Dose 20 MG; Start 10/28/16 at 09:00 Emtricitabine/ Tenofovir (Truvada) 1 tab DAILY PO Last administered on 08:45; Admin Dose 1 TAB; Start 10/27/16 at 18:00 Folic Acid (Folic Acid) 1 mg DAILY PO Last administered on 11/05/16 08:49; Admin Dose 1 MG; Start 10/28/16 at 09:00 Gabapentin (Neurontin) 300 mg TID PO Last administered on 11/05/16 12:28; Admin Dose 300 MG; Start 10/27/16 at 21:00 Miscellaneous Medication (Isentress) 400 mg BID PO Last administered on 08:46; Admin Dose 400 MG; Start 10/27/16 at 21:00 Acetaminophen/ Hydrocodone Bitart ([place] (5/325)) 1 tab Q4H PRN PO PAIN Last administered on 10/30/16 17:25; Admin Dose 1 TAB; Start 10/28/16 at 16:30 Trimethoprim/ Sulfamethoxazole (Bactrim (Ds)) 1 tab DAILY PO Last administered on 11/05/16 08:49; Admin Dose 1 TAB; Start 10/30/16 at 14:00 Azithromycin (Zithromax) 1,200 mg Q7D PO Last administered on 10/30/16 15:52; Admin Dose 1,200 MG; Start 10/30/16 at 15:00 Vancomycin HCl (Vancomycin Oral Syringe) 250 mg Q6 PO Last administered on 12:28; Admin Dose 250 MG; Start 11/01/16 at 12:00 Cholestyramine Resin (Questran) 1 pkt DAILY PO Last administered on 11/05/16 08 :45; Admin Dose 1 PKT; Start 11/01/16 at 12:00 Acyclovir (Zovirax) 400 mg DAILY PO Last administered on 11/05/16 08:47; Admin Dose 400 MG; Start 11/02/16 at 09:00 Fluconazole (Diflucan) 100 mg DAILY PO Last administered on 11/05/16 08:48; Admin Dose 100 MG; Start 11/02/16 at 09:00 Ciprofloxacin HCl (Ciloxan 0.3% Oph) 2 drop BID BOTH EYES Last administered on 11/05/16 08:50; Admin Dose 2 DROP; Start 11/01/16 at 12:30; Stop 11/06/16 at 12:29 Levofloxacin (Levaquin) 500 mg DAILY@06 GTB Last administered on 11/05/16 05:16 ; Admin Dose 500 MG; Start 11/04/16 at 06:00 PANKAJ KENNEDY MD November 05, 2016 15:32
[2016-11-06] MEDS: VANCOMYCIN HCL 250 MG/5ML POSYG PO SCH ×4 (00:45→18:10)
[2016-11-06] MEDS: ACCUCHECK AT 2AM (Patients on SS coverage) XX SCH (02:00)
[2016-11-06 02:50] VITALS: BP 91/54; PULSE 80
[2016-11-06 03:57] VITALS: BP 93/53; PULSE 77; RESP 18
[2016-11-06 05:36] LABS: ADD SCAN DIFF NO
[2016-11-06] MEDS: metroNIDAZOLE 500 MG/NS (PMX) 100 ML IVPB SCH ×2 (05:36→15:01)
[2016-11-06] MEDS: LEVOFLOXACIN 500 MG TAB GTB SCH (05:36)
[2016-11-06 06:19] LABS: CALCIUM 7.3 mg/dl (8.4-10.2); CREATININE 0.68 mg/dl (0.44-1.00); MAGNESIUM 2.1 mg/dl (1.7-2.5); POTASSIUM 4.1 mmol/L (3.5-5.1)
[2016-11-06] MEDS: INSULIN ASPART [NOVOLOG] 3 ML PEN SC SCH ×3 (08:13→17:26)
[2016-11-06 08:15] VITALS: BP 95/55; RESP 16
[2016-11-06 09:15] LABS: BASOPHILS % 0.6 % (0.0-2.0); EOSINOPHILS % 0.3 % (0.0-7.0); HEMATOCRIT 37.3 % (37.0-47.0); HEMOGLOBIN 12.8 g/dl (12.0-16.0); LYMPHOCYTES # 1.1 10^3/ul (0.8-2.9); MEAN CORPUSCULAR HEMOGLOBIN 32.9 pg (29.0-33.0); MEAN CORPUSCULAR HGB CONC 34.3 g/dl (32.0-37.0); MEAN CORPUSCULAR VOLUME 95.9 fl (82.0-101.0); MEAN PLATELET VOLUME 9.3 fl (7.4-10.4); MONOCYTE # 0.3 10^3/ul (0.3-0.9); NEUTROPHIL # 1.7 10^3/ul (1.6-7.5); NEUTROPHILS % 53.5 % (39.0-77.0); PLATELET COUNT 266 10^3/UL (140-415); RED BLOOD COUNT 3.89 10^6/ul (4.20-5.40); WHITE BLOOD COUNT 3.1 10^3/ul (4.8-10.8)
[2016-11-06] MEDS: EMTRICITABINE/TENOFOVIR TAB PO SCH (09:31)
[2016-11-06] MEDS: RALTEGRAVIR 400 MG TAB PO SCH (09:31)
[2016-11-06] MEDS: GABAPENTIN 300 MG CAP PO SCH ×2 (09:32→12:47)
[2016-11-06] MEDS: FLUCONAZOLE 100 MG TAB PO SCH (09:32)
[2016-11-06] MEDS: CHOLESTYRAMINE 4 GM PACKET PO SCH (09:32)
[2016-11-06] MEDS: CITALOPRAM 20 MG TAB PO SCH (09:32)
[2016-11-06] MEDS: FAMOTIDINE 20 MG TAB PO SCH (09:32)
[2016-11-06] MEDS: TRIMETHOPRIM/SULFAMETHOX (DS) TAB PO SCH (09:32)
[2016-11-06] MEDS: FOLIC ACID 1 MG TAB PO SCH (09:32)
[2016-11-06] MEDS: CIPROFLOXACIN 0.3% 2.5 ML OPH BOTH EYES SCH (09:33)
[2016-11-06] MEDS: ACYCLOVIR 400 MG TAB PO SCH (09:37)
[2016-11-06] MEDS: ENOXAPARIN 40 MG/0.4 ML SYG SC SCH (09:44)
--- NOTE | 2016-11-06 13:40 | CONS ---
Date/Time of Note Date/Time of Note DATE: 11/06/16 TIME: 13:39 Assessment/Plan Assessment/Plan Chief Complaint/Hosp Course SUBJECTIVE: No acute changes overnight. The patient is alert, comfortable on room air, no shortness of breath. No fevers. ANTIMICROBIALS: 1. Oral fluconazole 100 mg daily. 2. Oral acyclovir 400 mg daily. 3. Oral vancomycin 250 mg q.6h. 4. Questran 1 packet daily. 5. Also on Zithromax 1200 mg weekly. 6. Bactrim 1 tablet p.o. daily. 7. Flagyl 500 mg q.8 hours. 8. Levaquin 500 mg daily PHYSICAL EXAMINATION: GENERAL: Well-developed, middle-aged woman who is awake, in no distress. HEENT: Head atraumatic, normocephalic. Sclerae anicteric. Buccal mucosa pink. NECK: Supple, trachea midline. CHEST: Rise symmetrical. Breath sounds clear. HEART: S1, S2. ABDOMEN: Soft. Bowel tones present. EXTREMITIES: Without cyanosis. ASSESSMENT: 1. Persistent pneumonia. 2. Clostridium difficile colitis. 3. Acquired immunodeficiency syndrome with CD4 count of 156. 4. Vancomycin-resistant Enterococcus stool colonization. 5. Cirrhosis. PLAN: The patient remains stable. Will dc Levaquin, anticipate dc on oral Vanco for 4-5 weeks, Bactrim DS daily, weekly Zithromax 1200 mg, oral Diflucan and acyclovir daily, continue NATALI f/u with HIV clinic [facility] staff TRACY Grider Problems: Consultation Date/Type/Reason Admit Date/Time Oct 25, 2016 at 21:43 Initial Consult Date 10/29/16 Type of Consultation: id Exam/Review of Systems Vital Signs Vitals Vital Signs Date Time Temp Pulse Resp B/P Pulse Ox O2 Delivery O2 Flow Rate FiO2 11/06/16 08:15 97.7 83 16 95/55 95 11/05/16 10:49 Nasal Cannula 2.0 Intake and Output 11/05/16 11/05/16 11/06/16 15:00 23:00 07:00 Intake Total 550 ml 1190 ml 540 ml Output Total 700 ml Balance 550 ml 490 ml 540 ml Results Result Diagram: 11/06/16 0510 11/06/16 0510 Results 24 hrs Laboratory Tests Test 11/05/16 17:36 11/05/16 20:20 11/06/16 05:10 11/06/16 07:57 Bedside Glucose 86 93 72 White Blood Count 3.1 #L Red Blood Count 3.89 L Hemoglobin 12.8 Hematocrit 37.3 Mean Corpuscular Volume 95.9 Mean Corpuscular Hemoglobin 32.9 Mean Corpuscular Hemoglobin Concent 34.3 Red Cell Distribution Width 16.0 H Platelet Count 266 Mean Platelet Volume 9.3 Neutrophils % 53.5 Lymphocytes % 36.0 Monocytes % 8.0 Eosinophils % 0.3 Basophils % 0.6 Nucleated Red Blood Cells % 0.0 Neutrophils # 1.7 Lymphocytes # 1.1 Monocytes # 0.3 Eosinophils # 0.0 Basophils # 0.0 Nucleated Red Blood Cells # 0.0 Sodium Level 129 L Potassium Level 4.1 Chloride Level 105 Carbon Dioxide Level 21 Anion Gap 7 L Blood Urea Nitrogen 10 Creatinine 0.68 Glucose Level 85 Calcium Level 7.3 L Magnesium Level 2.1 Test 11/06/16 12:05 Bedside Glucose 94 Medications Medications Current Medications Ondansetron HCl (Zofran Inj) 4 mg Q6H PRN IV NAUSEA AND/OR VOMITING; Start at 23:30 Magnesium Hydroxide (Milk Of Mag) 30 ml DAILY PRN PO CONSTIPATION; Start at 23:30 Famotidine (Pepcid) 20 mg DAILY PO Last administered on 11/06/16 09:32; Admin Dose 20 MG; Start 10/26/16 at 09:00 Enoxaparin Sodium (Lovenox) 40 mg DAILY SC Last administered on 11/06/16 09:44 ; Admin Dose 40 MG; Start 10/26/16 at 09:00 Diagnostic Test (Pha) (Accu-Chek) 1 ea 02 XX Last administered on 10/31/16 02: 00; Admin Dose 1 EA; Start 10/27/16 at 02:00 Miscellaneous Information 1 ea NOTE XX ; Start 10/26/16 at 16:00 Glucose (Glutose) 15 gm Q15M PRN PO DECREASED GLUCOSE; Start 10/26/16 at 16:00 Glucose (Glutose) 22.5 gm Q15M PRN PO DECREASED GLUCOSE; Start 10/26/16 at 16: 00 Dextrose (D50w Syringe) 25 ml Q15M PRN IV DECREASED GLUCOSE; Start 10/26/16 at 16:00 Dextrose (D50w Syringe) 50 ml Q15M PRN IV DECREASED GLUCOSE; Start 10/26/16 at 16:00 Glucagon (Glucagen) 1 mg Q15M PRN IM DECREASED GLUCOSE; Start 10/26/16 at 16:00 Glucose 15 gm 15 gm Q15M PRN BUCCAL DECREASED GLUCOSE; Start 10/26/16 at 16:00 Metronidazole (Flagyl 500 Mg (Pmx)) 100 ml @ 100 mls/hr Q8 IVPB Last administered on 11/06/16 05:36; Admin Dose 100 MLS/HR; Start 10/27/16 at 22:00 Citalopram Hydrobromide (Celexa) 20 mg DAILY PO Last administered on 11/06/16 09:32; Admin Dose 20 MG; Start 10/28/16 at 09:00 Emtricitabine/ Tenofovir (Truvada) 1 tab DAILY PO Last administered on 09:31; Admin Dose 1 TAB; Start 10/27/16 at 18:00 Folic Acid (Folic Acid) 1 mg DAILY PO Last administered on 11/06/16 09:32; Admin Dose 1 MG; Start 10/28/16 at 09:00 Gabapentin (Neurontin) 300 mg TID PO Last administered on 11/06/16 12:47; Admin Dose 300 MG; Start 10/27/16 at 21:00 Miscellaneous Medication (Isentress) 400 mg BID PO Last administered on 09:31; Admin Dose 400 MG; Start 10/27/16 at 21:00 Acetaminophen/ Hydrocodone Bitart ([place] (5/325)) 1 tab Q4H PRN PO PAIN Last administered on 10/30/16 17:25; Admin Dose 1 TAB; Start 10/28/16 at 16:30 Trimethoprim/ Sulfamethoxazole (Bactrim (Ds)) 1 tab DAILY PO Last administered on 11/06/16 09:32; Admin Dose 1 TAB; Start 10/30/16 at 14:00 Azithromycin (Zithromax) 1,200 mg Q7D PO Last administered on 10/30/16 15:52; Admin Dose 1,200 MG; Start 10/30/16 at 15:00 Vancomycin HCl (Vancomycin Oral Syringe) 250 mg Q6 PO Last administered on 12:47; Admin Dose 250 MG; Start 11/01/16 at 12:00 Cholestyramine Resin (Questran) 1 pkt DAILY PO Last administered on 11/06/16 09 :32; Admin Dose 1 PKT; Start 11/01/16 at 12:00 Acyclovir (Zovirax) 400 mg DAILY PO Last administered on 11/06/16 09:37; Admin Dose 400 MG; Start 11/02/16 at 09:00 Fluconazole (Diflucan) 100 mg DAILY PO Last administered on 11/06/16 09:32; Admin Dose 100 MG; Start 11/02/16 at 09:00 Levofloxacin (Levaquin) 500 mg DAILY@06 GTB Last administered on 11/06/16 05:36 ; Admin Dose 500 MG; Start 11/04/16 at 06:00 MARIELOS OMALLEY NP November 06, 2016 13:40
[2016-11-06] MEDS ORDERED: AZITHROMYCIN 600 MG TAB PO SCH (14:00)
[2016-11-06] MEDS: AZITHROMYCIN 600 MG TAB PO SCH (15:01)
--- NOTE | 2016-11-06 15:29 | PDOCDIS ---
Discharge Instructions CONDITION Patient Condition: Fair HOME CARE INSTRUCTIONS: Special Diet: 1800 ADA ACTIVITY: Activity Restrictions: Slowly Increase Activity Rest between Activity Avoid heavy lifting Avoid Heavy Housework FOLLOW UP/APPOINTMENTS Appointments Follow up with PCP as out-pt Follow up at HIV clinic PANKAJ KENNEDY MD November 06, 2016 15:29
[2016-11-06] MEDS ORDERED: ACYC400T2 PO (15:35)
[2016-11-06] MEDS ORDERED: Vancomycin Oral Syringe PO (15:35)
[2016-11-06] MEDS ORDERED: AZIT600T PO (15:35)
[2016-11-06] MEDS ORDERED: FLUC100T PO (15:35)
[2016-11-06] MEDS ORDERED: QUESTRAN PO (15:35)
--- NOTE | 2016-11-06 17:21 | DS ---
DATE OF ADMISSION: 10/25/2016 DATE OF DISCHARGE: 11/06/2016 CONSULTANTS: 1. Dr. Adonis Sumner. 2. Dr. Ella Medley. 3. Dr. Luis Lopez. 4. Dr. Marta Seals. 5. Dr. Nathan Coello DIAGNOSES: 1. Septic shock secondary to right upper lobe pneumonia, resolved. 2. Clostridium difficile toxin, status post vancomycin. 3. History of human immunodeficiency virus. Resume home medication. 4. History of subarachnoid hemorrhage and hydrocephalus. No acute issues. 5. History of cerebrovascular accident. Continue aspirin. 6. Essential hypertension, well controlled. 7. Intractable diarrhea secondary to Clostridium difficile, resolved. 8. Pneumonia, status post cefepime. 9. Cirrhosis, prescription medication acyclovir. DISCHARGE MEDICATIONS: 1. Azithromycin. 2. Questran. 3. Diflucan. 4. Vancomycin. 5. Job Matrix 5000 ER 6. Vitamin D3. 7. Citalopram. 8. Truvada. 9. Folic acid. 10. Gabapentin. 11. Omeprazole. 12. Ditropan. 13. Isentress. 14. Bactrim. 15. Voriconazole. ALLERGIES: NO KNOWN DRUG ALLERGIES. HOSPITAL COURSE: This is a 61-year-old female with past medical history of HIV, subarachnoid hemorr duran, hydrocephalus, hepatitis, hypertension, history of CVA, gastritis who presented to [facility] secondary to having cough, fever, shortness of breath. She was seen in the emerge ncy room 3 weeks prior to her admission on 10/26/2016 with the right upper lobe pneumonia. She was treated outpatient with oral antibiotic and she completed her antibiotics, although symptoms persis tanya. The patient has a history of HIV, which she has been on HAART medication. Upon arrival to the emergency room after evaluation with chest x-ray showed right upper lobe dense pneumonia, temperatu re 100.5, tachycardia, WBC 13. She was found to be hypotensive despite IV fluid. The EKG showed foote praventricular tachycardia with ____160, left axis deviation, incomplete right bundle branch block. She was placed on Levophed, although it was stopped secondary to tachycardia. She was given adenos ine 12 mg IV push, which did convert the patient's heart rate to 110. She was admitted to the ICU w here she was seen and evaluated by infectious disease doctor and contact lens technician was continued to be o n pressors. Essentially the patient was weaned off from pressors, was continued on broad spectrum IV antibiotics and was transferred to telemetry floor and then med/surg. The patient was found to hav e negative blood culture, urine culture was negative, although the stool shows ____ vancomycin-resi stant Enterococcus and multidrug resistant organism in her stool. She was placed on oral vancomycin as per infectious disease. They believe that the stool was colonized and she was essentially weane d off from IV antibiotics. She was continued on her HIV medication, Bactrim and azithromycin, acycl ovir and Diflucan as per infectious disease. Essentially she was weaned off from oxygen. She was continued on breathing treatment via DuoNeb, and at this time, the patient denies having any abdomin al pain, nausea, vomiting, diarrhea. Her vitals have been stable with temperature 97.7, pulse 83, r espirations 16, blood pressure 94/55, oxygen saturation 95% in room air. She has been able to inder ate her oral intake. As per infectious disease doctor, pulmonology and medical team, the patient is medically stable to be discharged home with a close followup with her primary care physician and he r HIV clinic. Dictated By: PANKAJ GRIFFIN/KATIE Conf#: [id number] DID#: [id number]
== END 2016-11-06 20:50 | disposition home health service (06) | DRG 974 ==
LOC: E/R 18:25 → TEL 21:43 → MS2 10-31 22:05
PROVIDERS: ADMIT Internal Medicine; ATTEND Internal Medicine
DX: B20 Human immunodeficiency virus [HIV] disease (principal); R65.21 Severe sepsis with septic shock; A41.9 Sepsis, unspecified organism; K74.60 Unspecified cirrhosis of liver; A04.7 Enterocolitis due to Clostridium difficile; J18.9 Pneumonia, unspecified organism; I47.1 Supraventricular tachycardia; F11.20 Opioid dependence, uncomplicated; E03.9 Hypothyroidism, unspecified; I10 Essential (primary) hypertension; E55.9 Vitamin D deficiency, unspecified; Z79.82 Long term (current) use of aspirin; Z86.73 Personal history of transient ischemic attack (TIA), and cerebral infarction without residual deficits
CPT/HCPCS: 36415; 71010; 71250; 80048; 80053; 81003; 82962; 83605; 83690; 83735; 84100; 84484; 85025; 85610; 85730; 86360; 86635; 86641; 87040; 87045; 87075; 87086; 87536; 93005; 96365; 96366; 96367; 96368; 96372; 96375; 96376; 97162; C1751; J0153; J0456; J0692; J0696; J1650; J1815; J2270; J2930; J3370; J3480; J7030; J7040; J7042; J7050